=== PATIENT | female | born 1990 | race African-American/Black ===

== ENCOUNTER 2017-08-08 08:14 | Emergency (ER) | payer SELFPAY ==
[2017-08-08 08:37] LABS: APPEARANCE,URINE SLIGHTLY-CLOUDY; BILIRUBIN,URINE NEGATIVE (NEGATIVE); COLOR,URINE YELLOW; GLUCOSE, URINE NEGATIVE (NEGATIVE); KETONES,URINE NEGATIVE (NEGATIVE); LEUKOCYTE ESTERASE,URINE SMALL (NEGATIVE); NITRITE,URINE POSITIVE (NEGATIVE); PROTEIN,URINE NEGATIVE (NEGATIVE); URINE SPECIFIC GRAVITY 1.014; UROBILINOGEN,URINE NEGATIVE mg/dL (<2.0)
[2017-08-08] MEDS ORDERED: ACETAMINOPHEN 325 MG TABLET PO ONE (08:57)
--- NOTE | 2017-08-08 08:57 | ER Document Report ---
ED General - General Chief Complaint: Abdominal Pain Stated Complaint: STOMACH PAIN Time Seen by Provider: 08/08/17 08:43 Notes: Patient is a 27-year-old female who is -1 who presents to the emergency department with a chief complaint of lower pelvic pain for about a week with associated discharge that is white. She admits to spotting as well only when she wipes. States that her last menstrual period was April 2017. She has had a positive test. She denies any nausea, vomiting, abdominal pain, diarrhea constipation. Patient states that she has not been sexually active since May. She has not followed up with [facility] and has not had an ultrasound confirming her . TRAVEL OUTSIDE OF THE [place] IN LAST 30 DAYS: No - Related Data Allergies/Adverse Reactions: No Known Allergies Allergy (Unverified 08/08/17 08:22) Past Medical History - Social History Smoking Status: Current Every Day Smoker Chew tobacco use (# tins/day): No Frequency of alcohol use: None Drug Abuse: Marijuana Family History: Reviewed & Not Pertinent Patient has suicidal ideation: No Patient has homicidal ideation: No Renal/ Medical History: Denies: Hx Peritoneal Dialysis Past Surgical History: Reports: Hx Section - x 1 Review of Systems - Review of Systems Constitutional: No symptoms reported Cardiovascular: No symptoms reported Respiratory: No symptoms reported Gastrointestinal: No symptoms reported Genitourinary: No symptoms reported Female Genitourinary: See HPI -: Yes All other systems reviewed and negative Physical Exam - Vital signs Vitals: Temp Pulse Resp BP Pulse Ox 98.1 F 82 18 112/84 100 08/08/17 08:23 08/08/17 08:23 08/08/17 08:23 08/08/17 08:23 08/08/17 08:23 - Notes Notes: PHYSICAL EXAM GENERAL: Alert, interacts well. LUNGS: Clear to auscultation bilaterally, no wheezes, rales, or rhonchi. No respiratory distress. HEART: Regular rate and rhythm. No murmurs, gallops, or rubs. ABDOMEN: Soft, nondistended, mild pelvic tenderness. No guarding, rebound, or rigidity.. Bowel sounds present in all 4 quadrants. FEMALE : Normal external exam. No evidence of lesions, lacerations, bruising or vesicles. Evidence of white vaginal discharge without odor. No vaginal bleeding. EXTREMITIES: Moves all 4 extremities spontaneously. No edema, radial and dorsalis pedis pulses 2/4 bilaterally. No cyanosis. NEUROLOGICAL: Alert and oriented x4. Normal speech. PSYCH: Normal affect, normal mood. SKIN: Warm, dry, normal turgor. No rashes or lesions noted. Course - Re-evaluation Re-evalutation: 08/08/17 11:49 Patient is 27-year-old female is hemodynamically stable, no acute distress and afebrile. Patient positive test and pelvic pain sent for transvaginal ultrasound. CBC stable without leukocytosis or anemia. No evidence of electrolyte abnormalities and stable chemistry. 08/08/17 13:30 Patient did test positive for trichomonas, Chlamydia/gonorrhea were negative. Transvaginal ultrasound shows placenta overlying cervical loss. Did consult with [facility] s iron worker Dr. New who recommends treatment of trichomonas, pelvic rest and to follow[facility]. Patient is agreeable with plan and stable for discharge home - Vital Signs Vital signs: Temp Pulse Resp BP Pulse Ox 98.6 F 66 14 110/67 98 08/08/17 13:39 08/08/17 13:39 08/08/17 13:39 08/08/17 13:39 08/08/17 13:39 - Laboratory Result Diagrams: 08/08/17 09:49 08/08/17 09:49 Laboratory results interpreted by me: 08/08/17 08/08/17 08/08/17 08:29 09:49 09:49 RDW 14.1 H Beta HCG, Quant 12113.00 H Urine Nitrite POSITIVE H Ur Leukocyte Esterase SMALL H Urine HCG, Qual POSITIVE H - Diagnostic Test Radiology reviewed: Image reviewed, Reports reviewed Discharge - Discharge Clinical Impression: Trichomonas vaginalis (TV) infection Qualifiers: Weeks of gestation: 13 weeks Qualified Code(s): Z3A.13 - 13 weeks gestation of Condition: Good Disposition: HOME, SELF-CARE Instructions: Trichomonas Infection ([facility]) Additional Instructions: : You are . care is best started as early in as possible. If you're unsure about continuing this , you should discuss this with your physician or with visual basic developer at [facility]. You should take only medications approved by your physician. Acetaminophen can safely be taken for minor pains. As a rule, medication for chronic conditions such as asthma or seizures can safely be continued. You should discuss with the physician every medicine you take. Any regular exercise program can be continued. Talk to your physician, however, before engaging in competitive or demanding sports. Alcohol, smoking, and "street drugs" are dangerous to your baby. Cocaine is especially dangerous. Don't use any illicit drugs! BLEEDING DURING EARLY : You have been evaluated for passing blood while . While we take this symptom very seriously, most women with your degree of bleeding will go on to have a perfectly normal baby. At this time, there is no indication that a miscarriage will occur. (A miscarriage occurs when the fetus is abnormal. There is no medicine or treatment to prevent it.) A more serious cause of bleeding is tubal (or ectopic) . An ultrasound usually can show whether the is in the uterus or in the tube. Sometimes in early , no fetus is seen. In this case, careful follow-up, including repeat blood tests and repeat ultrasound, is necessary. Do not douche or have sex for at least a week, or until OK'd by the doctor. Don't use tampons. Call the doctor or return for re-examination if there is an increase in bleeding or cramping, extreme weakness, fainting, new abdominal pain, fever, or passage of tissue. FOLLOW-UP CARE: If you have been referred to a physician for follow-up care, call the physician s office for an appointment as you were instructed or within the next two days. If you experience worsening or a significant change in your symptoms (very heavy bleeding with large clots of blood, passage of tissue, more severe abdominal / pelvic pain or cramping, feeling faint or severe weakness, fever, etc.), notify the physician immediately or return to the Emergency Department at any time for re-evaluation. OBSTETRIC-GYNECOLOGIC (OB-CUSTOMER EQUIPMENT ENGINEER) PHYSICIANS IN [place]: [facility] [address] [place] [address] [phone] [facility] Dept of Watch And Clock Maker And Repairer * Address: [address], [place] [address] * * Website: [email or web address] Referrals: [facility] [Provider Group] - 08/11/17
[2017-08-08 10:05] LABS: ABSOLUTE EOSINOPHILS # (AUTO) 0.1 10^3/uL (0.0-0.6); ABSOLUTE MONOCYTES (AUTO) 0.4 10^3/uL (0.1-1.4); ABSOLUTE NEUT (AUTO) 5.4 10^3/uL (1.7-8.2); BASOPHILS % (AUTO) 0.3 % (0-2); HEMATOCRIT 39.4 % (36.0-47.0); LYMPHOCYTES % (AUTO) 25.4 % (13-45); MEAN CORPUSCULAR HEMOGLOBIN 30.8 pg (27.0-33.4); MEAN CORPUSCULAR VOLUME 93 fl (80-97); MONOCYTES % (AUTO) 5.4 % (3-13); PLATELET COUNT 236 10^3/uL (150-450); RED BLOOD COUNT 4.22 10^6/uL (3.72-5.28); RED CELL DISTRIBUTION WIDTH 14.1 % (11.5-14.0); SEGMENTED NEUTROPHILS % (AUTO) 67.9 % (42-78); TOTAL CELLS COUNTED % (AUTO) 100 %; WHITE BLOOD COUNT 7.9 10^3/uL (4.0-10.5)
[2017-08-08 10:12] LABS: BACTERIA (WET MOUNT) 3+ BACTERIA SEEN; EPITHELIALS (WET MOUNT) 3+ EPITHELIALS SEEN; T.VAGINALIS (WET MOUNT) TRICHOMONAS SEEN; WBCS (WET MOUNT) FEW WBCS SEEN; YEAST (WET MOUNT) NO YEAST SEEN
[2017-08-08 10:23] LABS: ALANINE AMINOTRANSFERASE 15 U/L (9-52); ALBUMIN 4.2 g/dL (3.5-5.0); ALKALINE PHOSPHATASE 59 U/L (38-126); ANION GAP 9 (5-19); ASPARTATE AMINO TRANSFERASE 18 U/L (14-36); BILIRUBIN,DIRECT 0.2 mg/dL (0.0-0.4); BILIRUBIN,TOTAL 0.4 mg/dL (0.2-1.3); BLOOD UREA NITROGEN 8 mg/dL (7-20); CALCIUM 9.5 mg/dL (8.4-10.2); CARBON DIOXIDE 24 mmol/L (22-30); CHLORIDE 104 mmol/L (98-107); GLUCOSE 80 mg/dL (75-110); POTASSIUM 4.4 mmol/L (3.6-5.0); TOTAL PROTEIN 7.3 g/dL (6.3-8.2)
--- NOTE | 2017-08-08 10:34 | RADIOLOGY REPORT (SQ) ---
EXAM DESCRIPTION: U/S OB TRANSVAG W/DOPPLER COMPLETED DATE/TIME: 08/08/2017 10:22 am REASON FOR STUDY: pelvic pain, spotting COMPARISON: None. TECHNIQUE: ENDOVAGINAL static and realtime grayscale images acquired of the pelvis. Additional selec omari spectral and color Doppler images recorded. All images stored on PACs. bHCG: Not available LIMITATIONS: None. FINDINGS: FETUS: Living intrauterine . EGA: 13 weeks 3 days MONIE: 02/10/2018 FHR: 163 beats per minute. SUBCHORIONIC BLEED: No SIZE OF BLEED: Not applicable. UTERUS: No masses. No anomalies. Uterus is 13 x 10 x 8 cm in size CERVICAL LENGTH: 4.4 cm Closed. There is placental tissue partially covering the internal cervical os, with marginal placenta previa. No abruption. Repeat ultrasound imaging sometime later in the 2 nd trimester is recommended for further evaluation of this finding. RIGHT ADNEXA: Normal ovary with normal vascular flow. Right ovary is 3 x 3.1 x 1.6 cm in size No adnexal free fluid. No adnexal masses. LEFT ADNEXA: Normal ovary with normal vascular flow. Left ovary 3.2 x 2.4 x 1.3 cm in size No adnexal free fluid. No adnexal masses. FREE FLUID: None. OTHER: No other significant finding. IMPRESSION: LIVING INTRAUTERINE . EGA 13 weeks 3 days Placenta is developing posteriorly, margin partially covers the internal cervical os from marginal pl acenta previa. No abruption. No fluid in the cervix. Repeat scanning sometime later in the 2nd tri mester is recommended for further evaluation of this finding. Trimester of : First - 0 to 13 weeks. TECHNICAL DOCUMENTATION: JOB ID: [id number] [employer]- All Rights Reserved
[2017-08-08 11:35] LABS: CHLAM PCR NOT DETECTED (NOT DETECT); GON PCR NOT DETECTED (NOT DETECT)
[2017-08-08] MEDS ORDERED: METRONIDAZOLE 500 MG TABLET PO ONE (11:48)
[2017-08-08 13:43] VITALS: BP 110/67
== END 2017-08-08 13:43 | disposition home or self-care (01) ==
LOC: ER 08:14
DX: O98.311 Other infections with a predominantly sexual mode of transmission complicating pregnancy, first trimester (principal); A59.01 Trichomonal vulvovaginitis; R10.30 Lower abdominal pain, unspecified; F17.200 Nicotine dependence, unspecified, uncomplicated; Z3A.13 13 weeks gestation of pregnancy
CPT/HCPCS: 36415; 76817; 80053; 81001; 81025; 84702; 85025; 86900; 86901; 87086; 87088; 87186; 87210; 87491; 87591; 93976; 99284

== ENCOUNTER 2017-09-15 22:35 | Emergency (ER) | payer MEDICAID ==
--- NOTE | 2017-09-16 00:07 | ER Document Report ---
ED GI/ - General Chief Complaint: Vaginal Bleeding Stated Complaint: VAGINAL BLEEDING Time Seen by Provider: 09/15/17 23:58 Notes: Patient is a 27-year-old female that comes emergency department for chief complaint of lower abdominal cramping and vaginal spotting. She states symptoms started over the past day, she denies any heavy bleeding, states she sees the spotting when she wipes. She denies vaginal discharge, she does report some dysuria. She denies fever chills, nausea or vomiting, leg pain. She is feeling baby move, felt movement yesterday although not today. She takes vitamins, she denies any medications otherwise, she has had a C- section, denies other medical history. TRAVEL OUTSIDE OF THE [place] IN LAST 30 DAYS: No - Related Data Allergies/Adverse Reactions: No Known Allergies Allergy (Unverified 08/08/17 08:22) Past Medical History - General Information source: Patient - Social History Smoking Status: Never Smoker Frequency of alcohol use: None Drug Abuse: None Lives with: Family Family History: Reviewed & Not Pertinent - Medical History Medical History: Negative Renal/ Medical History: Denies: Hx Peritoneal Dialysis Past Surgical History: Reports: Hx Section - x 1 - Immunizations Immunizations up to date: Yes Hx Diphtheria, Pertussis, Tetanus Vaccination: Yes Review of Systems - Review of Systems Constitutional: No symptoms reported EENT: No symptoms reported Cardiovascular: No symptoms reported Respiratory: No symptoms reported Gastrointestinal: See HPI Genitourinary: See HPI Female Genitourinary: See HPI Musculoskeletal: No symptoms reported Skin: No symptoms reported Hematologic/Lymphatic: No symptoms reported Neurological/Psychological: No symptoms reported Physical Exam - Vital signs Vitals: Temp Pulse Resp BP Pulse Ox 98.9 F 85 16 100/57 L 100 09/15/17 22:44 09/15/17 22:44 09/15/17 22:44 09/15/17 22:44 09/15/17 22:44 - General General appearance: Appears well In distress: None - HEENT Head: Normocephalic, Atraumatic Eyes: Normal Conjunctiva: Normal Extraocular movements intact: Yes Eyelashes: Normal Pupils: PERRL Nasal: Normal Mouth/Lips: Normal Mucous membranes: Normal Pharynx: Normal Neck: Normal - Respiratory Respiratory status: No respiratory distress Breath sounds: Normal. No: Decreased air movement, Wheezing - Cardiovascular Rhythm: Regular. No: Tachycardia Heart sounds: Normal auscultation, S1 appreciated, S2 appreciated - Abdominal Inspection: Gravid female Tenderness: Tender - There is mild generalized lower abdominal/pelvic tenderness , nonspecific, nonfocal, no guarding, no rigidity - Back Back: Normal, Nontender. No: Tender - Extremities General upper extremity: Normal inspection, Nontender, Normal ROM, Normal strength General lower extremity: Normal inspection, Nontender, Normal ROM, Normal strength. No: Edema - Neurological Neuro grossly intact: Yes Cognition: Normal Orientation: AAOx4 Cayetano Coma Scale Eye Opening: Spontaneous Cayetano Coma Scale Verbal: Oriented Osteen Coma Scale Motor: Obeys Commands Osteen Coma Scale Total: 15 Speech: Normal Cranial nerves: Normal Cerebellar coordination: Normal Motor strength normal: LUE, RUE, LLE, RLE Additional motor exam normals: Equal complaint inspector Sensory: Normal - Psychological Associated symptoms: Normal affect, Normal mood - Skin Skin Temperature: Warm Skin Moisture: Dry Skin Color: Normal Course - Re-evaluation Re-evalutation: CBC shows minimal leukocytosis with no shift, no anemia. Chemistry shows mild hyponatremia but is otherwise unremarkable. Urinalysis shows a few white blood cells, some bacteria, no leukocyte esterase, no nitrates. Patient however is reporting dysuria, will be treated. Ultrasound shows no acute abnormality, living IUP. Discussed with patient, explained that at this time I do not obviously know the source for discomfort, offered to check if she was definitely bleeding, additional evaluation declined, offered to call PUMP AND STILL OPERATOR for recommendations, patient states that she is ready to leave and cannot wait any longer, request discharge. Patient discharged with recommendations, return precautions. Patient states understanding and agreement. - Vital Signs Vital signs: Temp Pulse Resp BP Pulse Ox 97.9 F 86 20 112/85 100 09/16/17 02:44 09/16/17 02:44 09/16/17 02:44 09/16/17 02:44 09/16/17 02:44 - Laboratory Result Diagrams: 09/16/17 00:10 09/16/17 00:10 Laboratory results interpreted by me: 09/16/17 09/16/17 09/16/17 00:10 00:10 00:10 WBC 10.7 H RDW 14.1 H Sodium 136.0 L Carbon Dioxide 21 L Total Protein 6.2 L Urine Blood MODERATE H Discharge - Discharge Clinical Impression: Cramping affecting , antepartum Condition: Stable Disposition: HOME, SELF-CARE Additional Instructions: Because of your painful urination and large amount of bacteria in his urine we are covering him with Keflex antibiotic. Take as prescribed to completion. Your ultrasound shows no abnormalities. Hydrate well, avoid sexual intercourse or any significant physical activity until cleared by PUMP AND STILL OPERATOR to do so. Call tomorrow to set up close follow-up with PUMP AND STILL OPERATOR for additional evaluation and management. Return immediately if you worsen including severe pain, bleeding, fever of 100.4 greater, or any other concerning symptoms. Prescriptions: Cephalexin Monohydrate [Keflex 500 mg Capsule] 500 mg PO BID #10 capsule Referrals: GERARDO MAY MD [Primary Care Provider] - Follow up tomorrow
[2017-09-16 00:25] LABS: ABSOLUTE EOSINOPHILS # (AUTO) 0.2 10^3/uL (0.0-0.6); ABSOLUTE LYMPHOCYTES (AUTO) 2.8 10^3/uL (0.5-4.7); ABSOLUTE MONOCYTES (AUTO) 0.7 10^3/uL (0.1-1.4); ABSOLUTE NEUT (AUTO) 6.9 10^3/uL (1.7-8.2); BASOPHILS % (AUTO) 0.3 % (0-2); EOSINOPHILS % (AUTO) 2.3 % (0-6); HEMATOCRIT 37.4 % (36.0-47.0); HEMOGLOBIN 12.5 g/dL (12.0-15.5); LYMPHOCYTES % (AUTO) 25.9 % (13-45); MEAN CORPUSCULAR HEMOGLOBIN 31.2 pg (27.0-33.4); MEAN CORPUSCULAR HGB CONC 33.3 g/dL (32.0-36.0); MEAN CORPUSCULAR VOLUME 94 fl (80-97); MONOCYTES % (AUTO) 6.8 % (3-13); PLATELET COUNT 197 10^3/uL (150-450); RED CELL DISTRIBUTION WIDTH 14.1 % (11.5-14.0); SEGMENTED NEUTROPHILS % (AUTO) 64.7 % (42-78); TOTAL CELLS COUNTED % (AUTO) 100 %; WHITE BLOOD COUNT 10.7 10^3/uL (4.0-10.5)
[2017-09-16 00:35] LABS: ALANINE AMINOTRANSFERASE 10 U/L (9-52); ALBUMIN 3.7 g/dL (3.5-5.0); ALKALINE PHOSPHATASE 69 U/L (38-126); ANION GAP 9 (5-19); ASPARTATE AMINO TRANSFERASE 18 U/L (14-36); BILIRUBIN,DIRECT 0.1 mg/dL (0.0-0.4); BILIRUBIN,TOTAL 0.3 mg/dL (0.2-1.3); BLOOD UREA NITROGEN 8 mg/dL (7-20); CALCIUM 8.7 mg/dL (8.4-10.2); CARBON DIOXIDE 21 mmol/L (22-30); CHLORIDE 106 mmol/L (98-107); GLUCOSE 80 mg/dL (75-110); POTASSIUM 4.2 mmol/L (3.6-5.0); TOTAL PROTEIN 6.2 g/dL (6.3-8.2)
[2017-09-16 00:59] LABS: APPEARANCE,URINE CLEAR; BILIRUBIN,URINE NEGATIVE (NEGATIVE); COLOR,URINE YELLOW; GLUCOSE, URINE NEGATIVE (NEGATIVE); KETONES,URINE NEGATIVE (NEGATIVE); LEUKOCYTE ESTERASE,URINE NEGATIVE (NEGATIVE); NITRITE,URINE NEGATIVE (NEGATIVE); PROTEIN,URINE NEGATIVE (NEGATIVE); UROBILINOGEN,URINE NEGATIVE mg/dL (<2.0)
--- NOTE | 2017-09-16 02:10 | RADIOLOGY REPORT (SQ) ---
EXAM DESCRIPTION: U/S OB 14+ TA/1 GEST W/DOPPLER CLINICAL HISTORY: 27 years, Female, abd cramping, vaginal bleeding, 2nd trimester COMPARISON: 08/08/17 TECHNIQUE: Transvaginal LIMITATIONS: None. FINDINGS: Living intrauterine measures 19w0d based on sonographic biometrics with MONIE 02/10/18. Cardiac activity is 143 bpm. Posterior placenta with no evidence of complication. Prominence of the anterior uterine wall consistent with mild transient contraction. Variable position. Largest vertical pocket is 7.1 cm. Ovaries not visualized. Limited visualization of the spine likely due to position. Anatomic survey appears otherwise unremarkable including visualization of the four chambered heart view, three-vessel cord, cord insertion, kidneys, bladder, stomach, intracranial structures, and upper-lower extremities. IMPRESSION: 1. Living intrauterine fetus at 19w0d, without evidence of complication. Limited visualization of the spine due to position. 2. Prominence of the anterior lower uterine wall probably due to a transient uterine contraction as compared with prior exam, 08/08/2017; differential diagnosis includes intramural fibroid.
[2017-09-16] MEDS ORDERED: CEPHALEXIN 500 MG CAPSULE PO ONE (02:18)
[2017-09-16 02:47] VITALS: BP 112/85
== END 2017-09-16 02:47 | disposition home or self-care (01) ==
LOC: ER 22:35
DX: O26.90 Pregnancy related conditions, unspecified, unspecified trimester (principal); N93.8 Other specified abnormal uterine and vaginal bleeding; R10.30 Lower abdominal pain, unspecified
CPT/HCPCS: 36415; 76805; 80053; 81001; 85025; 86900; 86901; 87086; 87088; 87186; 93976; 99284

== ENCOUNTER 2017-11-04 09:49 | Outpatient (CLI) | payer MEDICAID ==
[2017-11-04 10:35] LABS: BACTERIA (WET MOUNT) 4+ BACTERIA SEEN; EPITHELIALS (WET MOUNT) 3+ EPITHELIALS SEEN; RBCS (WET MOUNT) 1+ RBCS SEEN; T.VAGINALIS (WET MOUNT) NO TRICHOMONAS SEEN; WBCS (WET MOUNT) 3+ WBCS SEEN; YEAST (WET MOUNT) NO YEAST SEEN
[2017-11-04 10:42] LABS: APPEARANCE,URINE SLIGHTLY-CLOUDY; BILIRUBIN,URINE NEGATIVE (NEGATIVE); COLOR,URINE YELLOW; GLUCOSE, URINE NEGATIVE (NEGATIVE); KETONES,URINE NEGATIVE (NEGATIVE); LEUKOCYTE ESTERASE,URINE LARGE (NEGATIVE); NITRITE,URINE NEGATIVE (NEGATIVE); PROTEIN,URINE 30 mg/dL (NEGATIVE); URINE SPECIFIC GRAVITY 1.023
[2017-11-04 11:08] LABS: URINE AMPHETAMINES SCREEN NEGATIVE; URINE BARBITURATES SCREEN NEGATIVE; URINE BENZODIAZEPINES SCREEN NEGATIVE; URINE COCAINE SCREEN NEGATIVE; URINE METHADONE SCREEN NEGATIVE; URINE PHENCYCLIDINE SCREEN NEGATIVE
[2017-11-04 11:14] LABS: URINE MARIJUANA (THC) SCREEN UNCONFIRMED POSITIVE
[2017-11-04 13:56] LABS: CHLAM PCR NOT DETECTED (NOT DETECT); GON PCR NOT DETECTED (NOT DETECT)
== END 2017-11-04 11:19 | disposition home or self-care (01) ==
LOC: LC 09:49
PROVIDERS: ATTEND Obstetrics & Gynecology Gynecology
PROC: 4A1HXCZ Monitoring of Products of Conception, Cardiac Rate, External Approach (ICD-10-PCS; principal; 2017-11-04)
DX: O47.02 False labor before 37 completed weeks of gestation, second trimester (principal); O99.282 Endocrine, nutritional and metabolic diseases complicating pregnancy, second trimester; E86.0 Dehydration; O26.892 Other specified pregnancy related conditions, second trimester; L29.9 Pruritus, unspecified; Z3A.26 26 weeks gestation of pregnancy
CPT/HCPCS: 59899; 87210; 81001; 80307; 87491; 87591; G0480 ×2

== ENCOUNTER 2017-11-24 22:01 | Outpatient (CLI) | payer MEDICAID ==
[2017-11-24 22:26] LABS: AMORPHOUS SEDIMENT,URINE TRACE /HPF; APPEARANCE,URINE CLOUDY; BILIRUBIN,URINE NEGATIVE (NEGATIVE); COLOR,URINE YELLOW; GLUCOSE, URINE NEGATIVE (NEGATIVE); KETONES,URINE NEGATIVE (NEGATIVE); LEUKOCYTE ESTERASE,URINE LARGE (NEGATIVE); NITRITE,URINE NEGATIVE (NEGATIVE); PROTEIN,URINE 30 mg/dL (NEGATIVE); URINE SPECIFIC GRAVITY 1.019
[2017-11-24] MEDS ORDERED: MORPHINE SULFATE 10 MG/ML INJ ONE (22:26)
[2017-11-24] MEDS ORDERED: MORPHINE SULFATE 10 MG/ML INJ IV ONE (22:26)
[2017-11-24] MEDS ORDERED: RINGERS SOLUTION,LACTATED 1,000 ML IV PRN (22:26)
[2017-11-24] MEDS ORDERED: RINGERS SOLUTION,LACTATED 1,000 ML IV ONE (22:26)
[2017-11-24 22:36] LABS: URINE AMPHETAMINES SCREEN NEGATIVE; URINE BARBITURATES SCREEN NEGATIVE; URINE BENZODIAZEPINES SCREEN NEGATIVE; URINE COCAINE SCREEN NEGATIVE; URINE METHADONE SCREEN NEGATIVE; URINE PHENCYCLIDINE SCREEN NEGATIVE
[2017-11-24 22:39] LABS: URINE MARIJUANA (THC) SCREEN UNCONFIRMED POSITIVE
--- NOTE | 2017-11-25 04:56 | RADIOLOGY REPORT (SQ) ---
EXAM DESCRIPTION: U/S OB LIMITED COMPLETED DATE/TIME: 11/24/2017 11:59 pm REASON FOR STUDY: Cervical length, eval for perterm labor COMPARISON: None. TECHNIQUE: Limited transvaginal and transabdominal grayscale ultrasound for evaluation of specific r equested obstetrical parameters. LIMITATIONS: None. FINDINGS: CERVICAL LENGTH: 3.6 cm Closed. FHR: 153 beats per minute. PRESENTATION: Breech. OTHER: Lower uterine contraction IMPRESSION: LIMITED OBSTETRICAL ULTRASOUND WITH MEASURED PARAMETERS DELINEATED ABOVE. Trimester of : Third trimester - 28 weeks to delivery. TECHNICAL DOCUMENTATION: JOB ID: [id number] [employer]- All Rights Reserved Reading location - IP/workstation name: [email or web address]
== END 2017-11-25 00:33 | disposition short-term general hospital (02) ==
LOC: LC 22:01
PROVIDERS: ATTEND Obstetrics & Gynecology
DX: O60.03 Preterm labor without delivery, third trimester (principal)
CPT/HCPCS: 81001; 80307; 76815; J2270

== ENCOUNTER 2017-11-25 00:43 | Emergency (ER) | payer MEDICAID ==
[2017-11-25] MEDS ORDERED: ACETAMINOPHEN 325 MG TABLET PO ONE (02:50)
--- NOTE | 2017-11-25 02:52 | ER Document Report ---
ED General - General Chief Complaint: Upper Abdominal Pain Stated Complaint: ABDOMINAL PAIN Time Seen by Provider: 11/25/17 01:41 Mode of Arrival: Ambulatory Information source: Patient, [facility] Records Notes: 27-year-old female who is 7 months diagnosed with a urinary tract infection started on Macrobid presents with complaints of suprapubic pain and epigastric pain. Patient was seen at labor and delivery cleared from OB standpoint sent in for further evaluation TRAVEL OUTSIDE OF THE [place] IN LAST 30 DAYS: No - HPI Onset: Just prior to arrival Onset/Duration: Sudden Quality of pain: Achy Severity: Mild Pain Level: 1 Associated symptoms: Nausea, Other - Abdominal pain Exacerbated by: Denies Relieved by: Denies Similar symptoms previously: No Recently seen / treated by doctor: Yes - Related Data Allergies/Adverse Reactions: No Known Allergies Allergy (Verified 11/25/17 02:00) Past Medical History - Social History Smoking Status: Never Smoker Cigarette use (# per day): No Chew tobacco use (# tins/day): No Smoking Education Provided: No Family History: Reviewed & Not Pertinent Patient has suicidal ideation: No Patient has homicidal ideation: No Renal/ Medical History: Denies: Hx Peritoneal Dialysis Past Surgical History: Reports: Hx Section - x 1 - Immunizations Immunizations up to date: Yes Hx Diphtheria, Pertussis, Tetanus Vaccination: Yes Review of Systems - Review of Systems Notes: REVIEW OF SYSTEMS: CONSTITUTIONAL : Denies fever, chills, or sweats. Denies recent illness. EENT: Denies eye, ear, throat, or mouth pain or symptoms. Denies nasal or sinus congestion or discharge. Denies throat, tongue, or mouth swelling or difficulty swallowing. CARDIOVASCULAR: Denies chest pain. Denies palpitations or racing or irregular heart beat. Denies ankle edema. RESPIRATORY: Denies cough, cold, or chest congestion. Denies shortness of breath, difficulty breathing, or wheezing. GASTROINTESTINAL: Admits to epigastric right upper quadrant right flank pain GENITOURINARY: Admits to difficulty urinating FEMALE GENITOURINARY: Denies vaginal bleeding, heavy or abnormal periods, irregular periods. Denies vaginal discharge or odor. MUSCULOSKELETAL: Denies back or neck pain or stiffness. Denies joint pain or swelling. SKIN: Denies rash, lesions or sores. HEMATOLOGIC : Denies easy bruising or bleeding. LYMPHATIC: Denies swollen, enlarged glands. NEUROLOGICAL: Denies confusion or altered mental status. Denies passing out or loss of consciousness. Denies dizziness or lightheadedness. Denies headache. Denies weakness or paralysis or loss of use of either side. Denies problems with gait or speech. Denies sensory loss, numbness, or tingling. Denies seizures. PSYCHIATRIC: Denies anxiety or stress. Denies depression, suicidal ideation, or homicidal ideation. ALL OTHER SYSTEMS REVIEWED AND NEGATIVE. PHYSICAL EXAMINATION: GENERAL: Well-appearing, well-nourished and in no acute distress. HEAD: Atraumatic, normocephalic. EYES: Pupils equal round and reactive to light, extraocular movements intact, conjunctiva are normal. ENT: Nares patent, oropharynx clear without exudates. Moist mucous membranes. NECK: Normal range of motion, supple without lymphadenopathy LUNGS: Breath sounds clear to auscultation bilaterally and equal. No wheezes rales or rhonchi. HEART: Regular rate and rhythm without murmurs ABDOMEN: Gravid abdomen tender in the suprapubic epigastric regions Female : deferred Musculoskeletal: Normal range of motion, no pitting or edema. No cyanosis. NEUROLOGICAL: Cranial nerves grossly intact. Normal speech, normal gait. Normal sensory, motor exams PSYCH: Normal mood, normal affect. SKIN: Warm, Dry, normal turgor, no rashes or lesions noted. Dictation was performed using [employer] voice recognition software Physical Exam - Vital signs Vitals: Temp Pulse Resp BP Pulse Ox 99 F 81 18 115/75 99 11/25/17 01:00 11/25/17 01:00 11/25/17 01:00 11/25/17 01:00 11/25/17 01:00 Course - Re-evaluation Re-evalutation: 11/25/17 02:52 Patient will be given Tylenol at her request, urinalysis concerning for UTI, 11/25/17 04:[address] Lala, she does not believe pt needs ot be admitted, will give rocephn and follow up in ffice 11/25/17 05:18 Patient's very happy with this plan will follow-up in the office After performing a Medical Screening Examination, I estimate there is LOW risk for ACUTE APPENDICITIS, BOWEL OBSTRUCTION, ACUTE CHOLECYSTITIS, PERFORATED DIVERTICULITIS, INCARCERATED HERNIA, PANCREATITIS, PELVIC INFLAMMATORY DISEASE, PERFORATED ULCER, ECTOPIC , or TUBO-OVARIAN ABSCESS, thus I consider the discharge disposition reasonable. Also, there is no evidence or peritonitis , sepsis, or toxicity. I have reevaluated this patient multiple times and no significant life threatening changes are noted. The patient and I have discussed the diagnosis and risks, and we agree with discharging home with close follow-up with the understanding that symptoms and presentations can change. We also discussed returning to the Emergency Department immediately if new or worsening symptoms occur. We have discussed the symptoms which are most concerning (e.g., bloody stool, fever, changing or worsening pain, vomiting) that necessitate immediate return. - Vital Signs Vital signs: Temp Pulse Resp BP Pulse Ox 99.2 F 93 18 101/65 99 11/25/17 05:00 11/25/17 05:00 11/25/17 05:00 11/25/17 05:00 11/25/17 05:00 - Laboratory Result Diagrams: 11/25/17 02:45 11/25/17 02:45 Laboratory results interpreted by me: 11/25/17 11/25/17 02:45 02:45 WBC 12.5 H RBC 3.36 L Hgb 10.1 L Hct 30.4 L RDW 14.1 H Seg Neutrophils % 81.8 H Lymphocytes % 10.7 L Absolute Neutrophils 10.3 H BUN 5 L Total Protein 5.5 L Albumin 2.9 L - Diagnostic Test Radiology reviewed: Image reviewed - Ultrasound per AUDIO PRODUCTION MANAGER notes no cervical loss opening, Reports reviewed Discharge - Discharge Clinical Impression: Abdominal pain affecting UTI in Qualifiers: Trimester: third trimester Qualified Code(s): O23.43 - Unspecified infection of urinary tract in , third trimester Condition: Stable Disposition: HOME, SELF-CARE Instructions: Abdominal Pain ([facility]), Urinary Tract Infection ([facility]) Additional Instructions: Return immediately if you have any fevers or any worsening complaints Referrals: GERARDO MAY MD [Primary Care Provider] - 11/25/17
[2017-11-25 03:03] LABS: ABSOLUTE LYMPHOCYTES (AUTO) 1.3 10^3/uL (0.5-4.7); ABSOLUTE MONOCYTES (AUTO) 0.9 10^3/uL (0.1-1.4); ABSOLUTE NEUT (AUTO) 10.3 10^3/uL (1.7-8.2); BASOPHILS % (AUTO) 0.3 % (0-2); EOSINOPHILS % (AUTO) 0.1 % (0-6); HEMATOCRIT 30.4 % (36.0-47.0); HEMOGLOBIN 10.1 g/dL (12.0-15.5); LYMPHOCYTES % (AUTO) 10.7 % (13-45); MEAN CORPUSCULAR HEMOGLOBIN 30.2 pg (27.0-33.4); MEAN CORPUSCULAR HGB CONC 33.4 g/dL (32.0-36.0); MEAN CORPUSCULAR VOLUME 90 fl (80-97); MONOCYTES % (AUTO) 7.1 % (3-13); PLATELET COUNT 178 10^3/uL (150-450); RED BLOOD COUNT 3.36 10^6/uL (3.72-5.28); RED CELL DISTRIBUTION WIDTH 14.1 % (11.5-14.0); SEGMENTED NEUTROPHILS % (AUTO) 81.8 % (42-78); TOTAL CELLS COUNTED % (AUTO) 100 %; WHITE BLOOD COUNT 12.5 10^3/uL (4.0-10.5)
[2017-11-25 03:12] LABS: ALANINE AMINOTRANSFERASE 22 U/L (9-52); ALBUMIN 2.9 g/dL (3.5-5.0); ALKALINE PHOSPHATASE 83 U/L (38-126); ANION GAP 8 (5-19); ASPARTATE AMINO TRANSFERASE 15 U/L (14-36); BILIRUBIN,DIRECT 0.2 mg/dL (0.0-0.4); BILIRUBIN,TOTAL 0.5 mg/dL (0.2-1.3); BLOOD UREA NITROGEN 5 mg/dL (7-20); CALCIUM 8.6 mg/dL (8.4-10.2); CARBON DIOXIDE 24 mmol/L (22-30); CHLORIDE 107 mmol/L (98-107); GLUCOSE 94 mg/dL (75-110); LIPASE 29.8 U/L (23-300); POTASSIUM 3.9 mmol/L (3.6-5.0); SODIUM 138.7 mmol/L (137-145); TOTAL PROTEIN 5.5 g/dL (6.3-8.2)
[2017-11-25] MEDS ORDERED: CEFTRIAXONE 1 GM/D5W RTU 1 GM/50 ML RTUPB IV ONE (04:27)
[2017-11-25] MEDS ORDERED: CEFTRIAXONE INJ 1000 MG VIAL ONE (04:47)
[2017-11-25 05:02] VITALS: BP 101/65
--- NOTE | 2017-11-25 09:14 | CONSULTATION REPORT E ---
Consultation Report NAME: REGGIE ADAM : 1990 AGE: 27Y DATE: 11/25/2017 TO: ADRIEN REDD M.D. FROM: Hector SANCHEZ, Requesting Physician Patient seen at the request of Dr. Mathis. CHIEF COMPLAINT: Abdominal pain. SUMMARY OF CONSULTATION: The patient is a 27-year-old -Luxembourger female with a 24-hour history of abdominal pain, nonlocalized. She is 7 months . She presented to the emergency department where she was sent to [facility] and examined by Dr. Lala. The patient underwent transvaginal ultrasonography without any pathologic findings. The patient was sent back down to the emergency department where she was evaluated by Dr. Mathis. Exam was nonlocalized. Surgery was consulted for second opinion. PAST MEDICAL AND SURGICAL HISTORY: Significant only for previous . ALLERGIES: None known. MEDICATIONS: None. SOCIAL HISTORY: The patient does not smoke. FAMILY HISTORY: Noncontributory. REVIEW OF SYSTEMS: CONSTITUTIONAL: The patient denies. CARDIOVASCULAR: The patient denies. MUSCULOSKELETAL: The patient denies. NEUROLOGIC: The patient denies. PHYSICAL EXAMINATION: GENERAL: Patient examined in the emergency department. She is in moderate distress, writhing down on the bed. HEENT: No evidence of icterus. LUNGS: Diminished in the bases bilaterally. HEART: No murmur, rub, or gallop. ABDOMEN: Consistent with intrauterine with fundus far above the umbilicus. The abdomen is not rigid. There are no peritoneal signs. She is tender, nonlocalized, however. EXTREMITIES: Lower extremities with mild edema. Remainder of the examination is unremarkable. LABORATORY PROFILE: White blood cell count of 12,500, hemoglobin 10.1. Remainder of labs unremarkable. Normal interpretation of obstetrics, ultrasound not documented. ASSESSMENT: Intrauterine with nonlocalized abdominal pain. No clinical suspicion for surgical problem. RECOMMENDATIONS: 1. Supportive therapy. 2. Await interpretation of obstetric ultrasound. 3. Reconsult Surgery as needed. DICTATING PHYSICIAN: ADRIEN REDD M.D. [id number] PHY#: [id number] ID: [id number] JOB#: [id number] ACCT: [id number] cc:ADRIEN REDD M.D. >
== END 2017-11-25 05:30 | disposition home or self-care (01) ==
LOC: ER 00:43
DX: O23.43 Unspecified infection of urinary tract in pregnancy, third trimester (principal); O26.893 Other specified pregnancy related conditions, third trimester; R10.11 Right upper quadrant pain; R10.13 Epigastric pain; Z3A.30 30 weeks gestation of pregnancy
CPT/HCPCS: 99285; 96374; 36415; 87040; 83690; 85025; 80053; J3490; J0696

== ENCOUNTER 2017-11-25 23:58 | Outpatient (CLI) | payer MEDICAID ==
[2017-11-26 01:02] LABS: APPEARANCE,URINE TURBID; BILIRUBIN,URINE NEGATIVE (NEGATIVE); COLOR,URINE AMBER; GLUCOSE, URINE NEGATIVE (NEGATIVE); KETONES,URINE NEGATIVE (NEGATIVE); LEUKOCYTE ESTERASE,URINE LARGE (NEGATIVE); NITRITE,URINE NEGATIVE (NEGATIVE); PROTEIN,URINE 30 mg/dL (NEGATIVE); URINE SPECIFIC GRAVITY 1.017
[2017-11-26] MEDS ORDERED: ACETAMINOPHEN 325 MG TABLET ONE (01:03)
[2017-11-26] MEDS ORDERED: RINGERS SOLUTION,LACTATED 1,000 ML IV PRN (01:12)
[2017-11-26] MEDS ORDERED: RINGERS SOLUTION,LACTATED 300 ML IV ONE (01:12)
[2017-11-26 01:52] LABS: URINE AMPHETAMINES SCREEN NEGATIVE; URINE BARBITURATES SCREEN NEGATIVE; URINE BENZODIAZEPINES SCREEN NEGATIVE; URINE COCAINE SCREEN NEGATIVE; URINE METHADONE SCREEN NEGATIVE; URINE PHENCYCLIDINE SCREEN NEGATIVE
[2017-11-26 01:55] LABS: URINE MARIJUANA (THC) SCREEN UNCONFIRMED POSITIVE
--- NOTE | 2017-11-26 02:49 | RADIOLOGY REPORT (SQ) ---
EXAM DESCRIPTION: Ultrasound RUQ abdomen CLINICAL HISTORY: 27 years Female, pain right upper quad. 29 wks pre term labor Comparison: None. LIMITATIONS: Bowel gas artifact. FINDINGS: Gallbladder sludge, negative sonographic Lou's test, liver, a 0.2-cm diameter common bile duct, no intrahepatic ductal dilation, 12-cm right kidney, obscured pancreas, visualized vasculature/abdominal aorta, and no significant ascites appear otherwise unremarkable. IMPRESSION: No acute findings. Gallbladder sludge. Obscured pancreas.
[2017-11-26] MEDS ORDERED: OXYCODONE-ACETAMINOPHEN 5-325 MG TABLET PO ONE (03:07)
[2017-11-26] MEDS ORDERED: OXYCODONE-ACETAMINOPHEN 5-325 MG TABLET ONE (03:10)
[2017-11-26] MEDS ORDERED: MAG HYDROX/AL HYDROX/SIMETH SUSP 30 ML UDCUP PO ONE (03:18)
[2017-11-26] MEDS ORDERED: MAG HYDROX/AL HYDROX/SIMETH SUSP 30 ML UDCUP ONE (03:19)
--- NOTE | 2017-11-26 03:41 | L&D Progress Notes ---
PROGRESS NOTES Datetime Report Generated by CPN: 11/26/2017 03:41 PROGRESS NOTE Impression Other: Epigastric pain Plan Other: Home with pain medication and BRAT diet Vital Signs : Reviewed; Within Normal Limits Comment: She presents with epigastric pain for a second night. GB sono shows sludge and her pain is consistent with GB colic or possibly reflux. We will have her begin a BRAT diet and low fat. Rx for vicodin (30) written to be taken sparingly. Also Rx for Macrobid bid for a week for her urine. Zantac 150 mg bid to see if it helps with GERD. She will followup in the office at her next visit as planned. MEMBRANES Membranes: Intact FETUS A Decelerations: None FHR Category: Category I : 30.0 SIGNATURE SIGNATURE: [id number] Signature: with User ID: [email or web address]
== END 2017-11-26 03:51 | disposition home or self-care (01) ==
LOC: LC 23:58
PROVIDERS: ATTEND Obstetrics & Gynecology
DX: O60.03 Preterm labor without delivery, third trimester (principal)
CPT/HCPCS: 81001; 80307; 76705; J3490 ×2

== ENCOUNTER 2017-12-03 09:50 | Emergency (ER) | payer MEDICAID ==
[2017-12-03] MEDS ORDERED: ONDANSETRON HCL INJ/PF 4 MG/2 ML SDV IV ONE (10:17)
[2017-12-03] MEDS ORDERED: NORMAL SALINE 1000 ML 1,000 ML IV ONE (10:17)
[2017-12-03] MEDS ORDERED: MECLIZINE HCL 12.5 MG TABLET PO ONE (10:18)
--- NOTE | 2017-12-03 10:22 | ER Document Report ---
ED Medical Screen (RME) - General Chief Complaint: Dizziness Stated Complaint: HEAD SPINNING Time Seen by Provider: 12/03/17 10:16 Mode of Arrival: Ambulatory Information source: Patient Notes: 27-year-old female presents with complaint of dizziness, nausea that occurred upon awakening. Dizziness is described as the room spinning. Patient is currently complaining of epigastric abdominal pain. She has received in receiving care. She denies any lower abdominal pain, vaginal bleeding , dysuria. Patient denies head injury. She received Zofran, meclizine. Reports she has been unable to tolerate p.o. I have greeted and performed a rapid an initial assessment of the patient. A comprehensive evaluation and assessment will be performed by another ED provider. Medical decision making, lab review if performed will be reviewed by the ED provider taking over the patient's care. PHYSICAL EXAMINATION: GENERAL: Well-appearing, well-nourished and in no acute distress. HEAD: Atraumatic, normocephalic. EYES: Pupils equal round extraocular movements intact, conjunctiva are normal. ENT: Nares patent NECK: Normal range of motion LUNGS: No respiratory distress Musculoskeletal: Normal range of motion NEUROLOGICAL: Normal speech, normal gait. PSYCH: Normal mood, normal affect. SKIN: Warm, Dry, normal turgor, no rashes or lesions noted. TRAVEL OUTSIDE OF THE U.S. IN LAST 30 DAYS: No - HPI Onset: This morning Quality of pain: Stabbing Associated Symptoms: Nausea, Vomiting Exacerbated by: Denies Relieved by: Denies Similar symptoms previously: No Recently seen / treated by doctor: Yes - Related Data Smoking: Non-smoker Frequency of alcohol use: None Drug Abuse: None Allergies/Adverse Reactions: No Known Allergies Allergy (Verified 12/03/17 09:51) Past Medical History - Social History Chew tobacco use (# tins/day): No Frequency of alcohol use: None Drug Abuse: None Renal/ Medical History: Denies: Hx Peritoneal Dialysis Past Surgical History: Reports: Hx Section - x 1 - Immunizations Immunizations up to date: Yes Hx Diphtheria, Pertussis, Tetanus Vaccination: Yes Physical Exam - Vital signs Vitals: Temp Pulse Resp BP Pulse Ox 98.0 F 56 L 16 125/68 99 12/03/17 09:57 12/03/17 09:57 12/03/17 09:57 12/03/17 09:57 12/03/17 09:57 Course - Vital Signs Vital signs: Temp Pulse Resp BP Pulse Ox 98.0 F 56 L 16 125/68 99 12/03/17 09:57 12/03/17 09:57 12/03/17 09:57 12/03/17 09:57 12/03/17 09:57
--- NOTE | 2017-12-03 10:37 | ER Document Report ---
ED General - General Chief Complaint: Dizziness Stated Complaint: HEAD SPINNING Time Seen by Provider: 12/03/17 10:16 Mode of Arrival: Ambulatory Notes: This is a 7 month patient complaining of dizziness. States that it began shortly prior to arrival. Hit her all of a sudden. [place] like she was moving. Some nausea. Headache as well. TRAVEL OUTSIDE OF THE [place]. IN LAST 30 DAYS: No - HPI Onset: Just prior to arrival Onset/Duration: Sudden - Related Data Allergies/Adverse Reactions: No Known Allergies Allergy (Verified 12/03/17 09:51) Past Medical History - General Information source: Patient - Social History Smoking Status: Former Smoker Chew tobacco use (# tins/day): No Frequency of alcohol use: None Drug Abuse: None Lives with: Family Family History: Reviewed & Not Pertinent Patient has suicidal ideation: No Patient has homicidal ideation: No Renal/ Medical History: Denies: Hx Peritoneal Dialysis Past Surgical History: Reports: Hx Section - x 1 - Immunizations Immunizations up to date: Yes Hx Diphtheria, Pertussis, Tetanus Vaccination: Yes Review of Systems - Review of Systems Constitutional: No symptoms reported EENT: See HPI, Vertigo. denies: Eye pain, Ear pain Cardiovascular: No symptoms reported, Dizziness. denies: Chest pain, Palpitations, Heart racing Respiratory: No symptoms reported Gastrointestinal: No symptoms reported Genitourinary: No symptoms reported Female Genitourinary: Musculoskeletal: No symptoms reported Skin: No symptoms reported Hematologic/Lymphatic: No symptoms reported Neurological/Psychological: No symptoms reported, Headaches, Other - Vertigo Physical Exam - Vital signs Vitals: Temp Pulse Resp BP Pulse Ox 98.0 F 56 L 16 125/68 99 12/03/17 09:57 12/03/17 09:57 12/03/17 09:57 12/03/17 09:57 12/03/17 09:57 Interpretation: Normal - General General appearance: Appears well, Alert - HEENT Head: Normocephalic, Atraumatic Eyes: Normal Pupils: PERRL - Respiratory Respiratory status: No respiratory distress Chest status: Nontender Breath sounds: Normal Chest palpation: Normal - Cardiovascular Rhythm: Regular Heart sounds: Normal auscultation Murmur: No - Abdominal Inspection: Normal Distension: No distension Bowel sounds: Normal Tenderness: Nontender Organomegaly: No organomegaly - Back Back: Normal, Nontender - Extremities General upper extremity: Normal inspection, Nontender, Normal color, Normal ROM , Normal temperature General lower extremity: Normal inspection, Nontender, Normal color, Normal ROM , Normal temperature, Normal weight bearing. No: Nacho's sign - Neurological Neuro grossly intact: Yes Cognition: Normal Orientation: AAOx4 [place] Coma Scale Eye Opening: Spontaneous Fitzgerald Coma Scale Verbal: Oriented Fitzgerald Coma Scale Motor: Obeys Commands [place] Coma Scale Total: 15 Speech: Normal Motor strength normal: LUE, RUE, LLE, RLE Sensory: Normal - Psychological Associated symptoms: Normal affect, Normal mood - Skin Skin Temperature: Warm Skin Moisture: Dry Skin Color: Normal Course - Re-evaluation Re-evalutation: 12/03/17 12:[address] unremarkable. Labs are normal. Feeling much better at this time. Likely some benign positional vertigo. Advised her to follow-up with her regular doctor soon as possible. Of note, patient is complaining of a little bit of pain in her previous incision site. There does not appear to be a hernia there. It is soft and palpable with no exquisite pain. Bowel sounds are present in all 4 quadrants. I have advised that due to her small body habitus and her gravid abdomen that she will likely experience some diastases rectus. Patient advised to speak with her JAVA XML DEVELOPER with regards to worsening pain in that region. Of note as well patient was asking for something for pain. I have advised her against narcotics at this time 12/03/17 12:53 Laboratory 12/03/17 12/03/17 12/03/17 10:44 10:44 10:44 WBC 9.1 RBC 3.60 L Hgb 10.7 L Hct 32.8 L MCV 91 MCH 29.9 MCHC 32.8 RDW 14.4 H Plt Count 243 Seg Neutrophils % 71.8 Lymphocytes % 20.9 Monocytes % 6.3 Eosinophils % 0.8 Basophils % 0.2 Absolute Neutrophils 6.6 Absolute Lymphocytes 1.9 Absolute Monocytes 0.6 Absolute Eosinophils 0.1 Absolute Basophils 0.0 Sodium 138.8 Potassium 4.5 Chloride 107 Carbon Dioxide 25 Anion Gap 7 BUN 7 Creatinine 0.52 Est GFR ( Amer) > 60 Est GFR (Non-Af Amer) > 60 Glucose 77 Calcium 8.6 Total Bilirubin 0.3 Direct Bilirubin 0.2 Neonat Total Bilirubin Not Reportable Neonat Direct Bilirubin Not Reportable Neonat Indirect Bili Not Reportable AST 17 ALT 23 Alkaline Phosphatase 89 Total Protein 6.3 Albumin 3.4 L Urine Color YELLOW Urine Appearance SLIGHTLY-CLOUDY Urine pH 6.0 Ur Specific [place] 1.016 Urine Protein NEGATIVE Urine Glucose (UA) NEGATIVE Urine Ketones NEGATIVE Urine Blood NEGATIVE Urine Nitrite NEGATIVE Urine Bilirubin NEGATIVE Urine Urobilinogen 2.0 H Ur Leukocyte Esterase TRACE H Urine WBC (Auto) 4 Urine RBC (Auto) 1 Squamous Epi Cells Auto 17 Urine Mucus (Auto) FEW Urine Ascorbic Acid NEGATIVE Head CT 12/03/17 11:01 IMPRESSION: NORMAL BRAIN CT WITHOUT CONTRAST. EVIDENCE OF ACUTE STROKE: NO. - Vital Signs Vital signs: Temp Pulse Resp BP Pulse Ox 98.0 F 56 L 16 125/68 99 12/03/17 09:57 12/03/17 09:57 12/03/17 09:57 12/03/17 09:57 12/03/17 09:57 - Laboratory Result Diagrams: 12/03/17 10:44 12/03/17 10:44 Laboratory results interpreted by me: 12/03/17 12/03/17 12/03/17 10:44 10:44 10:44 RBC 3.60 L Hgb 10.7 L Hct 32.8 L RDW 14.4 H Albumin 3.4 L Urine Urobilinogen 2.0 H Ur Leukocyte Esterase TRACE H Discharge - Discharge Clinical Impression: Vertigo Condition: Good Disposition: HOME, SELF-CARE Instructions: Vertigo ([facility]) Prescriptions: Meclizine HCl 25 mg PO TID PRN 5 Days #20 tablet PRN Reason: Forms: Return to Work
[2017-12-03] MEDS ORDERED: ACETAMINOPHEN 325 MG TABLET PO ONE (11:01)
[2017-12-03 11:15] LABS: ABSOLUTE EOSINOPHILS # (AUTO) 0.1 10^3/uL (0.0-0.6); ABSOLUTE LYMPHOCYTES (AUTO) 1.9 10^3/uL (0.5-4.7); ABSOLUTE MONOCYTES (AUTO) 0.6 10^3/uL (0.1-1.4); ABSOLUTE NEUT (AUTO) 6.6 10^3/uL (1.7-8.2); BASOPHILS % (AUTO) 0.2 % (0-2); EOSINOPHILS % (AUTO) 0.8 % (0-6); HEMATOCRIT 32.8 % (36.0-47.0); HEMOGLOBIN 10.7 g/dL (12.0-15.5); LYMPHOCYTES % (AUTO) 20.9 % (13-45); MEAN CORPUSCULAR HEMOGLOBIN 29.9 pg (27.0-33.4); MEAN CORPUSCULAR HGB CONC 32.8 g/dL (32.0-36.0); MEAN CORPUSCULAR VOLUME 91 fl (80-97); MONOCYTES % (AUTO) 6.3 % (3-13); PLATELET COUNT 243 10^3/uL (150-450); RED CELL DISTRIBUTION WIDTH 14.4 % (11.5-14.0); SEGMENTED NEUTROPHILS % (AUTO) 71.8 % (42-78); TOTAL CELLS COUNTED % (AUTO) 100 %; WHITE BLOOD COUNT 9.1 10^3/uL (4.0-10.5)
[2017-12-03 11:37] LABS: APPEARANCE,URINE SLIGHTLY-CLOUDY; BILIRUBIN,URINE NEGATIVE (NEGATIVE); COLOR,URINE YELLOW; GLUCOSE, URINE NEGATIVE (NEGATIVE); KETONES,URINE NEGATIVE (NEGATIVE); LEUKOCYTE ESTERASE,URINE TRACE (NEGATIVE); NITRITE,URINE NEGATIVE (NEGATIVE); PROTEIN,URINE NEGATIVE (NEGATIVE); URINE SPECIFIC GRAVITY 1.016
[2017-12-03 11:39] LABS: ALANINE AMINOTRANSFERASE 23 U/L (9-52); ALBUMIN 3.4 g/dL (3.5-5.0); ALKALINE PHOSPHATASE 89 U/L (38-126); ANION GAP 7 (5-19); ASPARTATE AMINO TRANSFERASE 17 U/L (14-36); BILIRUBIN,DIRECT 0.2 mg/dL (0.0-0.4); BILIRUBIN,TOTAL 0.3 mg/dL (0.2-1.3); BLOOD UREA NITROGEN 7 mg/dL (7-20); CALCIUM 8.6 mg/dL (8.4-10.2); CARBON DIOXIDE 25 mmol/L (22-30); CHLORIDE 107 mmol/L (98-107); GLUCOSE 77 mg/dL (75-110); POTASSIUM 4.5 mmol/L (3.6-5.0); SODIUM 138.8 mmol/L (137-145); TOTAL PROTEIN 6.3 g/dL (6.3-8.2)
--- NOTE | 2017-12-03 12:24 | RADIOLOGY REPORT (SQ) ---
EXAM DESCRIPTION: CT HEAD WITHOUT COMPLETED DATE/TIME: 12/03/2017 12:13 pm REASON FOR STUDY: headace with dizziness COMPARISON: None. TECHNIQUE: Axial images acquired through the brain without intravenous contrast. Images reviewed wi th bone, brain and subdural windows. Images stored on PACS. All CT scanners at this facility use dose modulation, iterative reconstruction, and/or weight based d osing when appropriate to reduce radiation dose to as low as reasonably achievable (ALARA). [facility]: Dose Right [facility]: CareDose [facility]: Dose Right [facility]: Teradose 4D [facility]: Smart [employer] RADIATION DOSE: CT Rad equipment meets quality standard of care and radiation dose reduction techniq ues were employed. CTDIvol: 53.2 mGy. DLP: 1097 mGy-cm. mGy. LIMITATIONS: None. FINDINGS: VENTRICLES: Normal size and contour. CEREBRUM: No masses. No hemorrhage. No midline shift. No evidence for acute infarction. Normal gra y/white matter differentiation. No areas of low density in the white matter. CEREBELLUM: No masses. No hemorrhage. No alteration of density. No evidence for acute infarction. EXTRAAXIAL SPACES: No fluid collections. No masses. ORBITS AND GLOBE: No intra- or extraconal masses. Normal contour of globe without masses. CALVARIUM: No fracture. PARANASAL SINUSES: No fluid or mucosal thickening. SOFT TISSUES: No mass or hematoma. OTHER: No other significant finding. IMPRESSION: NORMAL BRAIN CT WITHOUT CONTRAST. EVIDENCE OF ACUTE STROKE: NO. COMMENT: Quality ID # [id number]: Final reports with documentation of one or more dose reduction techniques (e.g., Automated exposure control, adjustment of the mA and/or kV according to patient size, use of iterative reconstruction technique) TECHNICAL DOCUMENTATION: JOB ID: [id number] [employer]- All Rights Reserved Reading location - IP/workstation name: [email or web address]
[2017-12-03 12:53] VITALS: BP 109/59
== END 2017-12-03 13:23 | disposition home or self-care (01) ==
LOC: ER 09:50
DX: R42 Dizziness and giddiness (principal); R11.0 Nausea; Z87.891 Personal history of nicotine dependence
CPT/HCPCS: 99284; 96361; 96374; 36415; 85025; 80053; 81001; 70450; J3490 ×2; J2405; J7030

== ENCOUNTER 2017-12-24 10:45 | Outpatient (CLI) | payer MEDICAID ==
[2017-12-24 11:41] LABS: APPEARANCE,URINE CLOUDY; BILIRUBIN,URINE NEGATIVE (NEGATIVE); COLOR,URINE YELLOW; GLUCOSE, URINE NEGATIVE (NEGATIVE); KETONES,URINE NEGATIVE (NEGATIVE); LEUKOCYTE ESTERASE,URINE MODERATE (NEGATIVE); NITRITE,URINE POSITIVE (NEGATIVE); PROTEIN,URINE 30 mg/dL (NEGATIVE); URINE SPECIFIC GRAVITY 1.024
[2017-12-24 11:46] LABS: URINE AMPHETAMINES SCREEN NEGATIVE; URINE BARBITURATES SCREEN NEGATIVE; URINE BENZODIAZEPINES SCREEN NEGATIVE; URINE COCAINE SCREEN NEGATIVE; URINE METHADONE SCREEN NEGATIVE; URINE PHENCYCLIDINE SCREEN NEGATIVE
[2017-12-24 11:50] LABS: URINE MARIJUANA (THC) SCREEN UNCONFIRMED POSITIVE
--- NOTE | 2017-12-24 12:34 | RADIOLOGY REPORT (SQ) ---
EXAM DESCRIPTION: U/S ABDOMEN COMPLETE W/O DOP COMPLETED DATE/TIME: 12/24/2017 12:19 pm REASON FOR STUDY: at 33w with abd pain.appendix,gall bladde COMPARISON: 11/26/2017. TECHNIQUE: Dynamic and static grayscale images acquired of the abdomen and recorded on PACS. Additio nal selected color Doppler and spectral images recorded. LIMITATIONS: Study limited due to acoustical interference from fat or from air in the bowel. FINDINGS: PANCREAS: Poorly seen secondary to acoustical interference from fat or from air in the bow el. No visualized masses. Duct normal caliber as seen. LIVER: No masses. No dilated ducts. LIVER VASCULATURE: Normal directional flow of the main portal vein and hepatic veins. GALLBLADDER: No stones. Normal wall thickness. No pericholecystic fluid. ULTRASOUND-DETECTED REYNA'S SIGN: Negative. INTRAHEPATIC DUCTS AND COMMON DUCT:CBD and intrahepatic ducts normal caliber. No filling defects. INFERIOR VENA CAVA: Normal flow. AORTA: No aneurysm. RIGHT KIDNEY: Normal size. Normal echogenicity. No solid or suspicious masses. No hydronephrosis. No calcifications. LEFT KIDNEY: Normal size. Normal echogenicity. No solid or suspicious masses. No hydronephrosis. No calcifications. SPLEEN:Normal size. No solid masses. PERITONEAL AND PLEURAL SPACES: No ascites or effusions. RIGHT LOWER QUADRANT: Appendix not visualized. No abnormal sonographic findings. OTHER: No other significant finding. IMPRESSION: NO SIGNIFICANT FINDING IN THE VISUALIZED ABDOMEN. TECHNICAL DOCUMENTATION: JOB ID: [id number] [employer]- All Rights Reserved Reading location - IP/workstation name: [email or web address]
[2017-12-24] MEDS ORDERED: HYDROXYZINE PAMOATE 50 MG CAPSULE PO ONE (12:35)
[2017-12-24] MEDS ORDERED: HYDROXYZINE PAMOATE 50 MG CAPSULE ONE (12:45)
[2017-12-24] MEDS ORDERED: CEFTRIAXONE INJ 1000 MG VIAL ONE (12:45)
[2017-12-24] MEDS ORDERED: ACETAMINOPHEN 1,000 MG/100 ML RTUPB IV ONE ×2 (12:45→13:30)
[2017-12-24] MEDS ORDERED: CEFTRIAXONE 1 GM/D5W RTU 1 GM/50 ML RTUPB IV SCH (13:00)
[2017-12-24 13:19] LABS: T.VAGINALIS (WET MOUNT) NO TRICHOMONAS SEEN; WBCS (WET MOUNT) 1+ WBCS SEEN; YEAST (WET MOUNT) NO YEAST SEEN
[2017-12-24 13:20] LABS: BACTERIA (WET MOUNT) 3+ BACTERIA SEEN; EPITHELIALS (WET MOUNT) 3+ EPITHELIALS SEEN; RBCS (WET MOUNT) RARE RBCS SEEN
[2017-12-24] MEDS ORDERED: PHENAZOPYRIDINE HCL 200 MG TABLET PO ONE (13:30)
[2017-12-24] MEDS ORDERED: CEFTRIAXONE SODIUM 1,000 MG in DEXTROSE 5%-WATER 50 ML IV SCH (14:00)
--- NOTE | 2017-12-24 14:46 | Non Stress Test Report ---
Non Stress Test Datetime Report Generated by CPN: 12/24/2017 14:46 DEMOGRAPHIC EGA NST: 34.0 INDICATION Indication for Study: Other Indication for Study (NST) Other: labor check VITAL SIGNS Temperature - NST: 97.6 Pulse - NST: 82 RESP - NST: 16 NBPSYS NST: 120 NBPDIA NST: 60 MONITORING Monitor Explained: Monitor Explained; Test Explained; Patient Verbalized Understanding Time on Monitor: 12/24/2017 11:20 Time off Monitor: 12/24/2017 11:40 NST Duration: 20 NST INTERVENTIONS NST Interventions: PO Hydration; IV Fluids Physician Notified NST: A. Mayes, CNM Physician Notified NST: Mayes BABY A: [id number] BABY A Movement : Present Contraction Frequency : rare FHR Baseline : 135 Accelerations : 15X15 Decelerations : None Variability : Moderate 6-25bpm NST Review: Meets Criteria for Reactive NST NST Review and Verified By : Tony Hassan RN NST Results: Reactive NST REPORT Report Trigger: Send Report
== END 2017-12-24 14:31 | disposition home or self-care (01) ==
LOC: LC 10:45
PROVIDERS: ATTEND Obstetrics & Gynecology
PROC: 4A1HXCZ Monitoring of Products of Conception, Cardiac Rate, External Approach (ICD-10-PCS; principal; 2017-12-24)
DX: O23.43 Unspecified infection of urinary tract in pregnancy, third trimester (principal); O23.593 Infection of other part of genital tract in pregnancy, third trimester; N76.0 Acute vaginitis; B96.89 Other specified bacterial agents as the cause of diseases classified elsewhere; Z3A.34 34 weeks gestation of pregnancy
CPT/HCPCS: 59025; 87086; 87210; 87088; 81001; 87186; 80307; 76700; G0480 ×2; J3490 ×2; J0696; J0131

== ENCOUNTER 2018-01-04 11:46 | Outpatient (CLI) | payer MEDICAID ==
[2018-01-04] MEDS ORDERED: RINGERS SOLUTION,LACTATED 1,000 ML IV PRN (12:43)
[2018-01-04 12:49] LABS: AMORPHOUS SEDIMENT,URINE TRACE /HPF; APPEARANCE,URINE SLIGHTLY-CLOUDY; BILIRUBIN,URINE NEGATIVE (NEGATIVE); COLOR,URINE YELLOW; GLUCOSE, URINE NEGATIVE (NEGATIVE); KETONES,URINE NEGATIVE (NEGATIVE); LEUKOCYTE ESTERASE,URINE TRACE (NEGATIVE); NITRITE,URINE NEGATIVE (NEGATIVE); PROTEIN,URINE NEGATIVE (NEGATIVE); URINE SPECIFIC GRAVITY 1.011; UROBILINOGEN,URINE NEGATIVE mg/dL (<2.0)
[2018-01-04 12:50] LABS: AMNISURE (ROM) NEGATIVE (NEGATIVE)
[2018-01-04 12:54] LABS: BACTERIA (WET MOUNT) 4+ BACTERIA SEEN; EPITHELIALS (WET MOUNT) 4+ EPITHELIALS SEEN; T.VAGINALIS (WET MOUNT) NO TRICHOMONAS SEEN; WBCS (WET MOUNT) FEW WBCS SEEN; YEAST (WET MOUNT) NO YEAST SEEN
[2018-01-04 13:04] LABS: URINE AMPHETAMINES SCREEN NEGATIVE; URINE BARBITURATES SCREEN NEGATIVE; URINE BENZODIAZEPINES SCREEN NEGATIVE; URINE COCAINE SCREEN NEGATIVE; URINE METHADONE SCREEN NEGATIVE; URINE PHENCYCLIDINE SCREEN NEGATIVE
[2018-01-04 13:13] LABS: URINE MARIJUANA (THC) SCREEN UNCONFIRMED POSITIVE
[2018-01-04] MEDS ORDERED: ACETAMINOPHEN 325 MG TABLET PO ONE (13:21)
[2018-01-04] MEDS ORDERED: ACETAMINOPHEN 325 MG TABLET ONE (13:27)
[2018-01-04] MEDS ORDERED: HYDROXYZINE PAMOATE 50 MG CAPSULE PO ONE (13:59)
[2018-01-04 14:10] LABS: CHLAM PCR NOT DETECTED (NOT DETECT); GON PCR NOT DETECTED (NOT DETECT)
[2018-01-04] MEDS ORDERED: HYDROXYZINE PAMOATE 50 MG CAPSULE ONE (14:25)
--- NOTE | 2018-01-04 14:30 | RADIOLOGY REPORT (SQ) ---
EXAM DESCRIPTION: U/S OB LIMITED COMPLETED DATE/TIME: 01/04/2018 1:47 pm REASON FOR STUDY: Eval placenta, CORINE, well being COMPARISON: Limited Ob ultrasound 11/24/2017 TECHNIQUE: Limited transabdominal grayscale ultrasound for evaluation of specific requested obstetri cristi parameters. LIMITATIONS: None. FINDINGS: CERVICAL LENGTH: Not visualized transabdominally. CORINE: 19.8 total cm. Largest pocket 6.8 cm FHR: 165 beats per minute. PRESENTATION: Cephalic. OTHER: Placenta is posterior grade 1. No gross abruption or previa IMPRESSION: LIMITED OBSTETRICAL ULTRASOUND WITH MEASURED PARAMETERS DELINEATED ABOVE. Trimester of : Third trimester - 28 weeks to delivery. TECHNICAL DOCUMENTATION: JOB ID: [id number] [employer]- All Rights Reserved Reading location - IP/workstation name: [email or web address]
--- NOTE | 2018-01-04 14:49 | Non Stress Test Report ---
Non Stress Test Datetime Report Generated by CPN: 01/04/2018 14:49 DEMOGRAPHIC Test Number: 2 EGA NST: 34.3 INDICATION Indication for Study: Ordered by Provider MONITORING Monitor Explained: Monitor Explained; Test Explained; Patient Verbalized Understanding Time on Monitor: 01/04/2018 12:06 Time off Monitor: 01/04/2018 12:39 NST Duration: 33 NST INTERVENTIONS NST Interventions: None BABY A: [id number] BABY A Movement : Present Contraction Frequency : Irritability FHR Baseline : 145 Accelerations : 15X15 Decelerations : None Variability : Moderate 6-25bpm NST Review: Meets Criteria for Reactive NST NST Review and Verified By : Anant Murphy RN NST Results: Reactive NST REPORT Report Trigger: Send Report
== END 2018-01-04 14:39 | disposition home or self-care (01) ==
LOC: LC 11:46
PROVIDERS: ATTEND Obstetrics & Gynecology Gynecology
PROC: 4A1HXCZ Monitoring of Products of Conception, Cardiac Rate, External Approach (ICD-10-PCS; principal; 2018-01-04)
DX: O26.893 Other specified pregnancy related conditions, third trimester (principal); R10.2 Pelvic and perineal pain; Z3A.34 34 weeks gestation of pregnancy
CPT/HCPCS: 59025; 84112; 87210; 81001; 80307; 87491; 87591; 76815; J3490 ×2

== ENCOUNTER 2018-01-09 08:23 | Outpatient (CLI) | payer MEDICAID ==
[2018-01-09 09:16] LABS: APPEARANCE,URINE SLIGHTLY-CLOUDY; BILIRUBIN,URINE NEGATIVE (NEGATIVE); COLOR,URINE YELLOW; GLUCOSE, URINE NEGATIVE (NEGATIVE); KETONES,URINE NEGATIVE (NEGATIVE); LEUKOCYTE ESTERASE,URINE LARGE (NEGATIVE); NITRITE,URINE NEGATIVE (NEGATIVE); PROTEIN,URINE 30 mg/dL (NEGATIVE); URINE SPECIFIC GRAVITY 1.026
[2018-01-09 09:18] LABS: BACTERIA (WET MOUNT) 3+ BACTERIA SEEN; RBCS (WET MOUNT) NO RBCS SEEN; T.VAGINALIS (WET MOUNT) NO TRICHOMONAS SEEN; WBCS (WET MOUNT) 1+ WBCS SEEN; YEAST (WET MOUNT) NO YEAST SEEN
[2018-01-09 09:23] LABS: URINE AMPHETAMINES SCREEN NEGATIVE; URINE BARBITURATES SCREEN NEGATIVE; URINE BENZODIAZEPINES SCREEN NEGATIVE; URINE COCAINE SCREEN NEGATIVE; URINE METHADONE SCREEN NEGATIVE; URINE PHENCYCLIDINE SCREEN NEGATIVE
[2018-01-09 09:39] LABS: URINE MARIJUANA (THC) SCREEN UNCONFIRMED POSITIVE
[2018-01-09] MEDS ORDERED: NALBUPHINE HCL INJ 10 MG/1 ML AMPULE INJ ONE (10:21)
[2018-01-09] MEDS ORDERED: NALBUPHINE HCL INJ 10 MG/1 ML AMPULE ONE (10:22)
[2018-01-09 10:38] LABS: CHLAM PCR NOT DETECTED (NOT DETECT); GON PCR NOT DETECTED (NOT DETECT)
--- NOTE | 2018-01-09 11:57 | RADIOLOGY REPORT (SQ) ---
EXAM DESCRIPTION: U/S ABDOMEN LIMITED W/O DOP COMPLETED DATE/TIME: 01/09/2018 11:16 am REASON FOR STUDY: Upper abdominal pain, vomiting COMPARISON: None. TECHNIQUE: Dynamic and static grayscale images acquired of the abdomen and recorded on PACS. Additio nal selected color Doppler and spectral images recorded. LIMITATIONS: None. FINDINGS: PANCREAS: No masses. Visualized pancreatic duct normal caliber. LIVER: 12.5 cm. Normal echotexture. LIVER VASCULATURE: Normal directional flow of the main portal vein and hepatic veins. GALLBLADDER: No stones. Normal wall thickness. No pericholecystic fluid. ULTRASOUND-DETECTED REYNA'S SIGN: Negative. INTRAHEPATIC DUCTS AND COMMON DUCT: CBD and intrahepatic ducts normal caliber. No filling defects. INFERIOR VENA CAVA: Normal flow. AORTA: No aneurysm. RIGHT KIDNEY: Normal size, 10.7 cm. The lower pole is poorly seen because of bowel gas. PERITONEAL AND RIGHT PLEURAL SPACE: No ascites or effusions. OTHER: None. IMPRESSION: NORMAL RIGHT UPPER QUADRANT ULTRASOUND. TECHNICAL DOCUMENTATION: JOB ID: [id number] [employer]- All Rights Reserved Reading location - IP/workstation name: [email or web address]
[2018-01-09 12:33] LABS: ABSOLUTE EOSINOPHILS # (AUTO) 0.1 10^3/uL (0.0-0.6); ABSOLUTE LYMPHOCYTES (AUTO) 1.8 10^3/uL (0.5-4.7); ABSOLUTE MONOCYTES (AUTO) 0.7 10^3/uL (0.1-1.4); ABSOLUTE NEUT (AUTO) 6.1 10^3/uL (1.7-8.2); BASOPHILS % (AUTO) 0.3 % (0-2); EOSINOPHILS % (AUTO) 0.7 % (0-6); HEMATOCRIT 30.4 % (36.0-47.0); HEMOGLOBIN 10.1 g/dL (12.0-15.5); LYMPHOCYTES % (AUTO) 20.5 % (13-45); MEAN CORPUSCULAR HEMOGLOBIN 29.3 pg (27.0-33.4); MEAN CORPUSCULAR HGB CONC 33.3 g/dL (32.0-36.0); MEAN CORPUSCULAR VOLUME 88 fl (80-97); MONOCYTES % (AUTO) 8.1 % (3-13); PLATELET COUNT 185 10^3/uL (150-450); RED BLOOD COUNT 3.45 10^6/uL (3.72-5.28); SEGMENTED NEUTROPHILS % (AUTO) 70.4 % (42-78); TOTAL CELLS COUNTED % (AUTO) 100 %; WHITE BLOOD COUNT 8.7 10^3/uL (4.0-10.5)
[2018-01-09 12:54] LABS: LIPASE 37.4 U/L (23-300)
--- NOTE | 2018-01-09 13:56 | Non Stress Test Report ---
Non Stress Test Datetime Report Generated by CPN: 01/09/2018 13:56 DEMOGRAPHIC EGA NST: 35.1 INDICATION Indication for Study: Other Indication for Study (NST) Other: LABOR CHECK MONITORING Monitor Explained: Monitor Explained; Test Explained; Patient Verbalized Understanding Monitor Explained: Monitor Explained; Test Explained; Patient Verbalized Understanding Time on Monitor: 01/09/2018 08:45 Time off Monitor: 01/09/2018 10:58 NST Duration: 133 NST INTERVENTIONS NST Interventions: PO Hydration; Reposition Patient Physician Notified NST: Blanca BernardTROY BABY A: [id number] BABY A Movement : Present Contraction Frequency : irregular FHR Baseline : 135 Accelerations : 15X15 Accelerations : 15X15 Decelerations : None Variability : Moderate 6-25bpm Variability : Moderate 6-25bpm NST Review: Meets Criteria for Reactive NST NST Review: Meets Criteria for Reactive NST NST Review and Verified By : Tony Zhou RN NST Results: Reactive NST Results: Reactive NST REPORT Report Trigger: Send Report
== END 2018-01-09 13:38 | disposition home or self-care (01) ==
LOC: LC 08:23
PROVIDERS: ATTEND Obstetrics & Gynecology
PROC: 4A1HXCZ Monitoring of Products of Conception, Cardiac Rate, External Approach (ICD-10-PCS; principal; 2018-01-09)
DX: O26.893 Other specified pregnancy related conditions, third trimester (principal); R10.10 Upper abdominal pain, unspecified; O21.2 Late vomiting of pregnancy; Z3A.35 35 weeks gestation of pregnancy
CPT/HCPCS: 59025; 36415; 87210; 82150; 83690; 85025; 81001; 80307; 87491; 87591; 76705; J2300

== ENCOUNTER 2018-01-11 13:58 | Outpatient (CLI) | payer MEDICAID ==
[2018-01-11] MEDS ORDERED: HYDROXYZINE PAMOATE 50 MG CAPSULE ONE (14:36)
[2018-01-11] MEDS ORDERED: HYDROXYZINE PAMOATE 50 MG CAPSULE PO ONE (14:44)
[2018-01-11 15:01] LABS: AMORPHOUS SEDIMENT,URINE TRACE /HPF; APPEARANCE,URINE CLOUDY; BILIRUBIN,URINE NEGATIVE (NEGATIVE); COLOR,URINE YELLOW; GLUCOSE, URINE NEGATIVE (NEGATIVE); KETONES,URINE NEGATIVE (NEGATIVE); LEUKOCYTE ESTERASE,URINE MODERATE (NEGATIVE); NITRITE,URINE NEGATIVE (NEGATIVE); PROTEIN,URINE >=500 mg/dL (NEGATIVE); URINE AMPHETAMINES SCREEN NEGATIVE; URINE BARBITURATES SCREEN NEGATIVE; URINE BENZODIAZEPINES SCREEN NEGATIVE; URINE COCAINE SCREEN NEGATIVE; URINE MARIJUANA (THC) SCREEN UNCONFIRMED POSITIVE; URINE METHADONE SCREEN NEGATIVE; URINE PHENCYCLIDINE SCREEN NEGATIVE; URINE SPECIFIC GRAVITY 1.017; UROBILINOGEN,URINE NEGATIVE mg/dL (<2.0)
[2018-01-11] MEDS ORDERED: HYDROCORTISONE 1% OINTMENT 28.35 GM TP SCH (18:00)
== END 2018-01-11 15:43 | disposition home or self-care (01) ==
LOC: LC 13:58
PROVIDERS: ATTEND Obstetrics & Gynecology
PROC: 4A1HXCZ Monitoring of Products of Conception, Cardiac Rate, External Approach (ICD-10-PCS; principal; 2018-01-11)
DX: Z34.93 Encounter for supervision of normal pregnancy, unspecified, third trimester (principal)
CPT/HCPCS: 59025; 81001; 80307; J3490 ×2

== ENCOUNTER 2018-01-29 12:02 | Emergency (ER) | payer MEDICAID ==
[2018-01-29] MEDS ORDERED: FENTANYL CITRATE INJ/PF 100 MCG/2 ML AMPUL IV ONE (13:03)
[2018-01-29] MEDS ORDERED: ONDANSETRON 4 MG TAB.RAPDIS PO ONE (13:03)
--- NOTE | 2018-01-29 13:05 | ER Document Report ---
ED Medical Screen (RME) - General Chief Complaint: Post Surgical Pain Stated Complaint: POST OP PAIN Time Seen by Provider: 01/29/18 13:01 Mode of Arrival: Ambulatory Information source: Patient TRAVEL OUTSIDE OF THE [place]. IN LAST 30 DAYS: No - HPI Notes: 01/29/18 13:04 I have greeted and performed a rapid initial assessment of this patient. A comprehensive ED assessment and evaluation of the patient, analysis of test results and completion of the medical decision making process will be conducted by additional ED providers. 27-year-old female who presents emergency department with complaints of abdominal pain. Patient states that she had a done a week ago. Patient has increased swelling and pain to the area. 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 Patient denies any fever, chills, dysuria. PHYSICAL EXAMINATION: GENERAL: Well-appearing, well-nourished and in no acute distress. HEAD: Atraumatic, normocephalic. EYES: Pupils equal round extraocular movements intact, conjunctiva are normal. ENT: Nares patent NECK: Normal range of motion LUNGS: No respiratory distress ABD: site swollen and tender to touch Musculoskeletal: Normal range of motion NEUROLOGICAL: Normal speech, normal gait. PSYCH: Normal mood, normal affect. SKIN: Warm, Dry, normal turgor, no rashes or lesions noted. - Related Data Allergies/Adverse Reactions: No Known Allergies Allergy (Verified 01/29/18 12:45) Past Medical History - Social History Chew tobacco use (# tins/day): No Frequency of alcohol use: None Drug Abuse: None Renal/ Medical History: Denies: Hx Peritoneal Dialysis Past Surgical History: Reports: Hx Section - x 1 - Immunizations Immunizations up to date: Yes Hx Diphtheria, Pertussis, Tetanus Vaccination: Yes Physical Exam - Vital signs Vitals: Temp Pulse BP Pulse Ox 98.6 F 99 112/74 97 01/29/18 12:07 01/29/18 12:07 01/29/18 12:07 01/29/18 12:07 Course - Vital Signs Vital signs: Temp Pulse Resp BP Pulse Ox 98.6 F 99 112/74 97 01/29/18 12:07 01/29/18 12:07 01/29/18 12:07 01/29/18 12:07 Doctor's Discharge - Discharge Referrals: JOANA NUNO MD [Primary Care Provider] - Follow up as needed
[2018-01-29 13:57] LABS: ABSOLUTE EOSINOPHILS # (AUTO) 0.1 10^3/uL (0.0-0.6); ABSOLUTE LYMPHOCYTES (AUTO) 2.3 10^3/uL (0.5-4.7); ABSOLUTE MONOCYTES (AUTO) 0.5 10^3/uL (0.1-1.4); ABSOLUTE NEUT (AUTO) 5.5 10^3/uL (1.7-8.2); APPEARANCE,URINE SLIGHTLY-CLOUDY; BASOPHILS % (AUTO) 0.3 % (0-2); BILIRUBIN,URINE NEGATIVE (NEGATIVE); COLOR,URINE YELLOW; EOSINOPHILS % (AUTO) 1.2 % (0-6); GLUCOSE, URINE NEGATIVE (NEGATIVE); HEMATOCRIT 39.3 % (36.0-47.0); HEMOGLOBIN 13.1 g/dL (12.0-15.5); KETONES,URINE NEGATIVE (NEGATIVE); LEUKOCYTE ESTERASE,URINE SMALL (NEGATIVE); LYMPHOCYTES % (AUTO) 27.4 % (13-45); MEAN CORPUSCULAR HEMOGLOBIN 28.8 pg (27.0-33.4); MEAN CORPUSCULAR HGB CONC 33.4 g/dL (32.0-36.0); MEAN CORPUSCULAR VOLUME 86 fl (80-97); MONOCYTES % (AUTO) 6.2 % (3-13); NITRITE,URINE NEGATIVE (NEGATIVE); PLATELET COUNT 417 10^3/uL (150-450); PROTEIN,URINE NEGATIVE (NEGATIVE); RED BLOOD COUNT 4.56 10^6/uL (3.72-5.28); RED CELL DISTRIBUTION WIDTH 15.2 % (11.5-14.0); SEGMENTED NEUTROPHILS % (AUTO) 64.9 % (42-78); TOTAL CELLS COUNTED % (AUTO) 100 %; URINE SPECIFIC GRAVITY 1.018; WHITE BLOOD COUNT 8.4 10^3/uL (4.0-10.5)
[2018-01-29 14:21] LABS: ALANINE AMINOTRANSFERASE 32 U/L (9-52); ALBUMIN 4.5 g/dL (3.5-5.0); ALKALINE PHOSPHATASE 135 U/L (38-126); ANION GAP 13 (5-19); ASPARTATE AMINO TRANSFERASE 30 U/L (14-36); BILIRUBIN,DIRECT 0.3 mg/dL (0.0-0.4); BILIRUBIN,TOTAL 0.5 mg/dL (0.2-1.3); BLOOD UREA NITROGEN 14 mg/dL (7-20); CALCIUM 9.4 mg/dL (8.4-10.2); CARBON DIOXIDE 27 mmol/L (22-30); CHLORIDE 106 mmol/L (98-107); GLUCOSE 79 mg/dL (75-110); SODIUM 145.7 mmol/L (137-145); TOTAL PROTEIN 8.7 g/dL (6.3-8.2)
--- NOTE | 2018-01-29 14:50 | RADIOLOGY REPORT (SQ) ---
EXAM DESCRIPTION: CT ABD/PELVIS WITH IV ONLY COMPLETED DATE/TIME: 01/29/2018 2:15 pm REASON FOR STUDY: post-op swelling, pain COMPARISON: Abdominal ultrasound dated 01/09/2018 TECHNIQUE: CT scan of the abdomen and pelvis performed using helical scanning technique with dynamic intravenous contrast injection. No oral contrast. Images reviewed with lung, soft tissue, and bone windows. Reconstructed coronal and sagittal MPR images reviewed. Delayed images for evaluation of the urinary system also acquired. All images stored on PACS. All CT scanners at this facility use dose modulation, iterative reconstruction, and/or weight based d osing when appropriate to reduce radiation dose to as low as reasonably achievable (ALARA). [facility]: Dose Right [facility]: CareDose [facility]: Dose Right [facility]: Teradose 4D [facility]: Expensify CONTRAST TYPE AND DOSE: contrast/concentration: Isovue 370.00 mg/ml; Total Contrast Delivered: 76.0 ml; Total Saline Delivered: 67.0 ml 76 mL Isovue 370 RENAL FUNCTION: None required. The patient is less than 50 years old. RADIATION DOSE: CT Rad equipment meets quality standard of care and radiation dose reduction techniq ues were employed. CTDIvol: 5.7 - 7.2 mGy. DLP: 643 mGy-cm.. LIMITATIONS: There is a relative paucity of mesenteric and retroperitoneal fat making delineation of abdominal and pelvic structures somewhat difficult. FINDINGS: LOWER CHEST: No significant findings. No nodules or infiltrates. LIVER: Normal size. No masses. No dilated ducts. SPLEEN: Normal size. No focal lesions. PANCREAS: No masses. No significant calcifications. No adjacent inflammation or peripancreatic fluid collections. Pancreatic duct not dilated. GALLBLADDER: No identified stones by CT criteria. No inflammatory changes to suggest cholecystitis. ADRENAL GLANDS: No significant masses or asymmetry. RIGHT KIDNEY AND URETER: No solid masses. No significant calcifications. No hydronephrosis or hyd roureter. LEFT KIDNEY AND URETER: No solid masses. No significant calcifications. No hydronephrosis or hydr oureter. AORTA AND VESSELS: No aneurysm. No dissection. Renal arteries, SMA, celiac without stenosis. RETROPERITONEUM: No retroperitoneal adenopathy, hemorrhage or masses. BOWEL AND PERITONEAL CAVITY: No masses or inflammatory changes. No free fluid or peritoneal masses. APPENDIX: Not identified PELVIS: uterus is identified. No free fluid. Normal bladder. ABDOMINAL WALL: There is soft tissue stranding in the subcutaneous fat and associated skin thickening at the site of the presumably postsurgical in nature. These could be edematous or inflamm atory in nature. I cannot exclude an associated fluid component which presumably is postsurgical in nature. The possibility of an infectious process cannot be completely excluded. Clinical correlatio n is recommended. BONES: No significant or acute findings. OTHER: No other significant finding. IMPRESSION: There is soft tissue stranding in the subcutaneous fat and associated skin thickening at the site of the presumably postsurgical in nature. These could be edematous or inflammato ry in nature. I cannot exclude an associated fluid component which presumably is postsurgical in noelle ure. The possibility of an infectious process cannot be completely excluded. Clinical correlation i s recommended. uterus is identified in the pelvis. Other findings as noted above TECHNICAL DOCUMENTATION: JOB ID: [id number] Quality ID # [id number]: Final reports with documentation of one or more dose reduction techniques (e.g., Au tomated exposure control, adjustment of the mA and/or kV according to patient size, use of iterative reconstruction technique) 2010 [employer]- All Rights Reserved Reading location - IP/workstation name: [email or web address]
[2018-01-29] MEDS ORDERED: CEPHALEXIN 500 MG CAPSULE PO ONE (15:58)
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
[2018-01-29 16:38] VITALS: BP 110/72
== END 2018-01-29 16:36 | disposition home or self-care (01) ==
LOC: ER 12:02
DX: O90.2 Hematoma of obstetric wound (principal); O92.79 Other disorders of lactation; O99.335 Smoking (tobacco) complicating the puerperium; G89.18 Other acute postprocedural pain
CPT/HCPCS: 99284; 96374; 36415; 85025; 80053; 81001; 74177; S0119; J3010

== ENCOUNTER 2018-02-23 10:34 | Emergency (ER) | payer MEDICAID ==
--- NOTE | 2018-02-23 11:40 | ER Document Report ---
HPI - HPI Patient complains to provider of: Fell and injured right thumb Onset: Yesterday Pain Level: 5 Context: 27-year-old female fell last night and injured her right thumb. She believes she hyper extended it. It is tender in the thenar aspect of the right thumb. Associated Symptoms: None Exacerbated by: Movement Relieved by: Denies Similar symptoms previously: No Recently seen / treated by doctor: No - ROS ROS below otherwise negative: Yes Systems Reviewed and Negative: Yes All other systems reviewed and negative - REPRODUCTIVE Reproductive: REPORTS: : Past Medical History - General Information source: Patient - Social History Smoking Status: Current Every Day Smoker Chew tobacco use (# tins/day): No Frequency of alcohol use: None Drug Abuse: None Family History: Reviewed & Not Pertinent Patient has suicidal ideation: No Patient has homicidal ideation: No - Medical History Medical History: Negative Renal/ Medical History: Denies: Hx Peritoneal Dialysis Past Surgical History: Reports: Hx Section - x 1 - Immunizations Immunizations up to date: Yes Hx Diphtheria, Pertussis, Tetanus Vaccination: Yes Vertical Provider Document - CONSTITUTIONAL Agree With Documented VS: Yes Exam Limitations: No Limitations - INFECTION CONTROL TRAVEL OUTSIDE OF THE [place] IN LAST 30 DAYS: No - MUSCULOSKELETAL/EXTREMETIES Musculoskeletal/Extremeties: MAEW, FROM, Tender, Edema - Thenar aspect of the right thumb, nontender snuffbox - NEURO Level of Consciousness: Alert Course - Re-evaluation Re-evalutation: 02/23/18 11:57 Prelim thumb x-ray is negative we will place the patient in a thumb spica and she call me back in our for results. 02/23/18 11:59 Patient decided against the thumb spica and only wants an Wilmar wrap. - Vital Signs Vital signs: Temp Pulse Resp BP Pulse Ox 98.9 F 55 L 16 108/68 92 02/23/18 10:37 02/23/18 10:37 02/23/18 10:37 02/23/18 10:37 02/23/18 10:37 Discharge - Discharge Clinical Impression: Right thumb sprain Condition: Good Disposition: HOME, SELF-CARE Instructions: Sprained Thumb ([facility]), Splint Precautions ([facility]), Temporary Splint ([facility]) Additional Instructions: Splint for comfort Tylenol up to 4000 mg a day for pain Ibuprofen for pain See the orthopedist if you persist to have a problem Call me in 1 hour for the final x-ray report at [phone] Prescriptions: Ibuprofen [Motrin 600 mg Tablet] 600 mg PO Q8HP PRN #30 tablet PRN Reason: Referrals: NORBERTO SIERRA MD [ACTIVE STAFF] - Follow up as needed
[2018-02-23 11:50] VITALS: BP 108/68
--- NOTE | 2018-02-23 12:02 | RADIOLOGY REPORT (SQ) ---
EXAM DESCRIPTION: HAND RIGHT 3 VIEWS COMPLETED DATE/TIME: 02/23/2018 11:41 am REASON FOR STUDY: injury COMPARISON: None. EXAM PARAMETERS: NUMBER OF VIEWS: Three views. TECHNIQUE: AP, lateral and oblique radiographic images acquired of the right hand. LIMITATIONS: None. FINDINGS: MINERALIZATION: Normal. BONES: No acute fracture or dislocation. No worrisome bone lesions. JOINTS: No effusions. SOFT TISSUES: No soft tissue swelling. No foreign body. OTHER: No other significant finding. IMPRESSION: 1. NEGATIVE STUDY OF THE RIGHT HAND. TECHNICAL DOCUMENTATION: JOB ID: [id number] [employer] All Rights Reserved Reading location - IP/workstation name: [email or web address]
== END 2018-02-23 12:06 | disposition home or self-care (01) ==
LOC: ER 10:34
DX: S63.601A Unspecified sprain of right thumb, initial encounter (principal); W19.XXXA Unspecified fall, initial encounter; F17.200 Nicotine dependence, unspecified, uncomplicated
CPT/HCPCS: 99283

== ENCOUNTER 2018-06-05 15:05 | Emergency (ER) | payer SELFPAY ==
[2018-06-05] MEDS ORDERED: NORMAL SALINE 1000 ML 1,000 ML IV ONE (16:17)
[2018-06-05] MEDS ORDERED: ONDANSETRON HCL INJ/PF 4 MG/2 ML SDV IV ONE (16:18)
[2018-06-05] MEDS ORDERED: FAMOTIDINE INJ/PF 20 MG/2 ML SDV IV ONE (16:18)
[2018-06-05] MEDS ORDERED: KETOROLAC TROMETHAMINE INJ/PF 30 MG/1 ML SDV IV ONE (16:18)
--- NOTE | 2018-06-05 16:21 | ER Document Report ---
ED GI/ - General Chief Complaint: Nausea/Vomiting/Diarrhea Stated Complaint: ABDOMINAL PAIN Time Seen by Provider: 06/05/18 16:02 Notes: 28-year-old female, mother of 3. A few months from to the emergency department complaining of nausea, vomiting, diarrhea and abdominal pain. Diffuse abdominal pain. No obvious fever at this time. Nothing seems to make it better or worse. States that she can get off the toilet. Requesting something to make the diarrhea stopped. States that one other child in the home has also had similar illness this week. TRAVEL OUTSIDE OF THE [place] IN LAST 30 DAYS: No - HPI Patient complains to provider of: Abdominal pain, Diarrhea, Vomiting Timing/Duration: Gradual Quality of pain: Achy Severity at maximum: Moderate Severity in ED: Moderate Pain Level: 3 - Related Data Allergies/Adverse Reactions: No Known Allergies Allergy (Verified 02/23/18 10:34) Past Medical History - General Information source: Patient - Social History Smoking Status: Current Every Day Smoker Cigarette use (# per day): Yes Chew tobacco use (# tins/day): No Frequency of alcohol use: None Drug Abuse: None Lives with: Family Family History: Reviewed & Not Pertinent Patient has suicidal ideation: No Patient has homicidal ideation: No - Medical History Medical History: Negative Renal/ Medical History: Denies: Hx Peritoneal Dialysis Past Surgical History: Reports: Hx Section - x2, 1 - Immunizations Immunizations up to date: Yes Hx Diphtheria, Pertussis, Tetanus Vaccination: Yes Review of Systems - Review of Systems Notes: Constitutional: denies: Chills, Diaphoresis, Fever, Malaise, Weakness EENT: denies: Eye discharge, Blurred vision, Tearing, Double vision, Nose congestion, Nose discharge, Throat swelling, Mouth pain Cardiovascular: denies: Palpitations, Heart racing, Orthopnea, Dyspnea, Chest pain Respiratory: denies: Cough, Hurts to breathe, Wheezing, Shortness of breath Gastrointestinal: Complaining of abdominal pain, nausea, vomiting and diarrhea. Genitourinary: denies: Burning, Dysuria, Discharge, Frequency, Flank pain, Hematuria Musculoskeletal: denies: Joint pain, Joint swelling, Muscle pain, Muscle stiffness, back pain Hematologic/Lymphatic: denies: Anemia, Easy bleeding, Easy bruising, Blood clots Neurological/Psychological: denies: Confusion, Dementia, Depression, Loss of consciousness Skin: No lesions, no masses, no skin breakdown, no abscesses Physical Exam - Vital signs Vitals: Temp Pulse Resp BP Pulse Ox 98 F 88 18 114/70 97 06/05/18 15:16 06/05/18 15:16 06/05/18 15:16 06/05/18 15:16 06/05/18 15:16 Interpretation: Normal - General General appearance: Appears well, Alert - HEENT Head: Normocephalic, Atraumatic Eyes: Normal Pupils: PERRL - Respiratory Respiratory status: No respiratory distress Chest status: Nontender Breath sounds: Normal Chest palpation: Normal - Cardiovascular Rhythm: Regular Heart sounds: Normal auscultation Murmur: No - Abdominal Inspection: Normal Distension: No distension Bowel sounds: Normal Tenderness: Tender - Mild diffuse tenderness. No guarding or rebound. Organomegaly: No organomegaly - Back Back: Normal, Nontender - Extremities General upper extremity: Normal inspection, Nontender, Normal color, Normal ROM , Normal temperature General lower extremity: Normal inspection, Nontender, Normal color, Normal ROM , Normal temperature, Normal weight bearing. No: Nacho's sign - Neurological Neuro grossly intact: Yes Cognition: Normal Orientation: AAOx4 [place] Coma Scale Eye Opening: Spontaneous [place] Coma Scale Verbal: Oriented [place] Coma Scale Motor: Obeys Commands [place] Coma Scale Total: 15 Speech: Normal Motor strength normal: LUE, RUE, LLE, RLE Sensory: Normal - Psychological Associated symptoms: Normal affect, Normal mood - Skin Skin Temperature: Warm Skin Moisture: Dry Skin Color: Normal Course - Re-evaluation Re-evalutation: 06/05/18 18:20 Laboratory 06/05/18 06/05/18 06/05/18 16:00 17:14 17:14 WBC 6.7 RBC 4.84 Hgb 14.8 Hct 43.9 MCV 91 MCH 30.5 MCHC 33.6 RDW 14.7 H Plt Count 217 Seg Neutrophils % 64.3 Lymphocytes % 26.2 Monocytes % 7.4 Eosinophils % 1.6 Basophils % 0.5 Absolute Neutrophils 4.3 Absolute Lymphocytes 1.8 Absolute Monocytes 0.5 Absolute Eosinophils 0.1 Absolute Basophils 0.0 Sodium 141.9 Potassium 4.0 Chloride 102 Carbon Dioxide 27 Anion Gap 13 BUN 13 Creatinine 0.73 Est GFR ( Amer) > 60 Est GFR (Non-Af Amer) > 60 Glucose 91 Calcium 9.5 Total Bilirubin 1.3 Direct Bilirubin 0.2 Neonat Total Bilirubin Not Reportable Neonat Direct Bilirubin Not Reportable Neonat Indirect Bili Not Reportable AST 32 ALT 31 Alkaline Phosphatase 65 Total Protein 8.5 H Albumin 5.0 Lipase 28.1 Urine Color YELLOW Urine Appearance SLIGHTLY-CLOUDY Urine pH 5.0 Ur Specific [place] 1.021 Urine Protein NEGATIVE Urine Glucose (UA) NEGATIVE Urine Ketones NEGATIVE Urine Blood NEGATIVE Urine Nitrite NEGATIVE Urine Bilirubin NEGATIVE Urine Urobilinogen NEGATIVE Ur Leukocyte Esterase TRACE H Urine WBC (Auto) 6 Urine RBC (Auto) 0 U Hyaline Cast (Auto) 4 Squamous Epi Cells Auto 5 Urine Mucus (Auto) MANY Urine Ascorbic Acid 40 H Urine HCG, Qual NEGATIVE All labs are unremarkable. Patient is received fluids and medication. Patient feeling much better at this time. After fluids are done will DC with instructions with regards to gastroenteritis and viral - Vital Signs Vital signs: Temp Pulse Resp BP Pulse Ox 98 F 88 18 114/70 97 06/05/18 15:16 06/05/18 15:16 06/05/18 15:16 06/05/18 15:16 06/05/18 15:16 - Laboratory Result Diagrams: 06/05/18 17:14 06/05/18 17:14 Laboratory results interpreted by me: 06/05/18 06/05/18 06/05/18 16:00 17:14 17:14 RDW 14.7 H Total Protein 8.5 H Ur Leukocyte Esterase TRACE H Urine Ascorbic Acid 40 H Discharge - Discharge Clinical Impression: Viral gastroenteritis Condition: Good Disposition: HOME, SELF-CARE Instructions: Antinausea Medication ([facility]), Gastroenteritis (adult) ([facility]), Diarrhea, Nonspecific ([facility]) Additional Instructions: In the event that symptoms are getting worse or no better in the next 24 hours please return for repeat evaluation. Forms: Return to Work
[2018-06-05 17:41] LABS: ABSOLUTE EOSINOPHILS # (AUTO) 0.1 10^3/uL (0.0-0.6); ABSOLUTE LYMPHOCYTES (AUTO) 1.8 10^3/uL (0.5-4.7); ABSOLUTE MONOCYTES (AUTO) 0.5 10^3/uL (0.1-1.4); ABSOLUTE NEUT (AUTO) 4.3 10^3/uL (1.7-8.2); BASOPHILS % (AUTO) 0.5 % (0-2); EOSINOPHILS % (AUTO) 1.6 % (0-6); HEMATOCRIT 43.9 % (36.0-47.0); HEMOGLOBIN 14.8 g/dL (12.0-15.5); LYMPHOCYTES % (AUTO) 26.2 % (13-45); MEAN CORPUSCULAR HEMOGLOBIN 30.5 pg (27.0-33.4); MEAN CORPUSCULAR HGB CONC 33.6 g/dL (32.0-36.0); MEAN CORPUSCULAR VOLUME 91 fl (80-97); MONOCYTES % (AUTO) 7.4 % (3-13); PLATELET COUNT 217 10^3/uL (150-450); RED BLOOD COUNT 4.84 10^6/uL (3.72-5.28); RED CELL DISTRIBUTION WIDTH 14.7 % (11.5-14.0); SEGMENTED NEUTROPHILS % (AUTO) 64.3 % (42-78); TOTAL CELLS COUNTED % (AUTO) 100 %; WHITE BLOOD COUNT 6.7 10^3/uL (4.0-10.5)
[2018-06-05 17:53] LABS: APPEARANCE,URINE SLIGHTLY-CLOUDY; BILIRUBIN,URINE NEGATIVE (NEGATIVE); COLOR,URINE YELLOW; GLUCOSE, URINE NEGATIVE (NEGATIVE); KETONES,URINE NEGATIVE (NEGATIVE); LEUKOCYTE ESTERASE,URINE TRACE (NEGATIVE); NITRITE,URINE NEGATIVE (NEGATIVE); PROTEIN,URINE NEGATIVE (NEGATIVE); URINE SPECIFIC GRAVITY 1.021; UROBILINOGEN,URINE NEGATIVE mg/dL (<2.0)
[2018-06-05 18:04] LABS: ALANINE AMINOTRANSFERASE 31 U/L (9-52); ALKALINE PHOSPHATASE 65 U/L (38-126); ANION GAP 13 (5-19); ASPARTATE AMINO TRANSFERASE 32 U/L (14-36); BILIRUBIN,DIRECT 0.2 mg/dL (0.0-0.4); BILIRUBIN,TOTAL 1.3 mg/dL (0.2-1.3); BLOOD UREA NITROGEN 13 mg/dL (7-20); CALCIUM 9.5 mg/dL (8.4-10.2); CARBON DIOXIDE 27 mmol/L (22-30); CHLORIDE 102 mmol/L (98-107); GLUCOSE 91 mg/dL (75-110); LIPASE 28.1 U/L (23-300); SODIUM 141.9 mmol/L (137-145); TOTAL PROTEIN 8.5 g/dL (6.3-8.2)
[2018-06-05] MEDS ORDERED: ONDANSETRON ODT 4 MG TAB (6 TAB/ER DISP) PO PRN (18:58)
[2018-06-05 19:19] VITALS: BP 115/63
== END 2018-06-05 19:19 | disposition home or self-care (01) ==
LOC: ER 15:05
DX: A08.4 Viral intestinal infection, unspecified (principal); R11.2 Nausea with vomiting, unspecified; R10.84 Generalized abdominal pain; F17.210 Nicotine dependence, cigarettes, uncomplicated
CPT/HCPCS: 99284; 96361; 96374; 96375; 36415; 87086; 83690; 85025; 81025; 80053; 81001; J1885; J2405; J7030; S0028

== ENCOUNTER 2018-07-05 13:55 | Emergency (ER) | payer SELFPAY ==
--- NOTE | 2018-07-05 14:25 | ER Document Report ---
ED Medical Screen (RME) - General Chief Complaint: Chest Pain Stated Complaint: CHEST PAIN, LIGHT HEADED Time Seen by Provider: 07/05/18 14:21 Mode of Arrival: Ambulatory Information source: Patient Notes: 28-year-old female with no reported past medical history presents with complaint of right-sided chest pain that awoke her from sleep approximately 2 hours ago. She describes the pain as sharp, intermittent. Patient also had a near syncopal episode where she did fall to the floor, lose vision but could hear the people around her. She does state that she hit her head. Last menstrual period was 1 month prior to arrival. I have greeted and performed a rapid initial assessment of this patient. A comprehensive ED assessment and evaluation of the patient, analysis of test results and completion of medical decision making process we will be contacted by additional ED providers. PHYSICAL EXAMINATION: Vital signs reviewed-within normal limits GENERAL: Well-appearing, well-nourished and in no acute distress. LUNGS: No respiratory distress Musculoskeletal: Normal range of motion NEUROLOGICAL: Normal speech, normal gait. PSYCH: Normal mood, normal affect. SKIN: Warm, Dry, normal turgor, no rashes or lesions noted. TRAVEL OUTSIDE OF THE [place] IN LAST 30 DAYS: No - HPI Onset: Just prior to arrival Onset/Duration: Sudden Quality of pain: Sharp Severity: Moderate Associated Symptoms: Chest pain, Dizzy/lightheaded Exacerbated by: Denies Relieved by: Denies Similar symptoms previously: Yes Recently seen / treated by doctor: No - Related Data Smoking: Non-smoker Frequency of alcohol use: None Drug Abuse: None Allergies/Adverse Reactions: No Known Allergies Allergy (Verified 02/23/18 10:34) Past Medical History Renal/ Medical History: Denies: Hx Peritoneal Dialysis Past Surgical History: Reports: Hx Section - x2, 1 - Immunizations Immunizations up to date: Yes Hx Diphtheria, Pertussis, Tetanus Vaccination: Yes Physical Exam - Vital signs Vitals: Temp Pulse Resp BP Pulse Ox 98.3 F 56 L 18 128/69 H 100 07/05/18 14:18 07/05/18 14:18 07/05/18 14:18 07/05/18 14:18 07/05/18 14:18 Course - Vital Signs Vital signs: Temp Pulse Resp BP Pulse Ox 98.3 F 56 L 18 128/69 H 100 07/05/18 14:18 07/05/18 14:18 07/05/18 14:18 07/05/18 14:18 07/05/18 14:18
--- NOTE | 2018-07-05 15:34 | RADIOLOGY REPORT (SQ) ---
EXAM DESCRIPTION: CHEST 2 VIEWS COMPLETED DATE/TIME: 07/05/2018 3:23 pm REASON FOR STUDY: pain COMPARISON: None. EXAM PARAMETERS: NUMBER OF VIEWS: two views TECHNIQUE: Digital Frontal and Lateral radiographic views of the chest acquired. RADIATION DOSE: NA LIMITATIONS: none FINDINGS: LUNGS AND PLEURA: No consolidation, pneumothorax or pleural effusion. MEDIASTINUM AND HILAR STRUCTURES: No masses or contour abnormalities. HEART AND VASCULAR STRUCTURES: Heart normal size. No evidence for failure. BONES: No acute findings. HARDWARE: None in the chest. IMPRESSION: NO ACUTE RADIOGRAPHIC FINDING IN THE CHEST. TECHNICAL DOCUMENTATION: JOB ID: [id number] [employer]- All Rights Reserved Reading location - IP/workstation name: [email or web address]
[2018-07-05 15:40] LABS: ABSOLUTE EOSINOPHILS # (AUTO) 0.2 10^3/uL (0.0-0.6); ABSOLUTE LYMPHOCYTES (AUTO) 3.2 10^3/uL (0.5-4.7); ABSOLUTE MONOCYTES (AUTO) 0.5 10^3/uL (0.1-1.4); ABSOLUTE NEUT (AUTO) 4.2 10^3/uL (1.7-8.2); BASOPHILS % (AUTO) 0.6 % (0-2); HEMATOCRIT 41.9 % (36.0-47.0); HEMOGLOBIN 14.2 g/dL (12.0-15.5); LYMPHOCYTES % (AUTO) 39.2 % (13-45); MEAN CORPUSCULAR HEMOGLOBIN 31.8 pg (27.0-33.4); MEAN CORPUSCULAR VOLUME 93 fl (80-97); MONOCYTES % (AUTO) 6.6 % (3-13); PLATELET COUNT 233 10^3/uL (150-450); RED BLOOD COUNT 4.48 10^6/uL (3.72-5.28); SEGMENTED NEUTROPHILS % (AUTO) 51.6 % (42-78); TOTAL CELLS COUNTED % (AUTO) 100 %; WHITE BLOOD COUNT 8.1 10^3/uL (4.0-10.5)
[2018-07-05 15:42] LABS: APPEARANCE,URINE SLIGHTLY-CLOUDY; BILIRUBIN,URINE NEGATIVE (NEGATIVE); COLOR,URINE YELLOW; GLUCOSE, URINE NEGATIVE (NEGATIVE); KETONES,URINE NEGATIVE (NEGATIVE); LEUKOCYTE ESTERASE,URINE NEGATIVE (NEGATIVE); NITRITE,URINE NEGATIVE (NEGATIVE); PROTEIN,URINE NEGATIVE (NEGATIVE); URINE SPECIFIC GRAVITY 1.019; UROBILINOGEN,URINE NEGATIVE mg/dL (<2.0)
[2018-07-05 15:53] LABS: URINE AMPHETAMINES SCREEN NEGATIVE; URINE BARBITURATES SCREEN NEGATIVE; URINE BENZODIAZEPINES SCREEN NEGATIVE; URINE COCAINE SCREEN NEGATIVE; URINE MARIJUANA (THC) SCREEN UNCONFIRMED POSITIVE; URINE METHADONE SCREEN NEGATIVE; URINE PHENCYCLIDINE SCREEN NEGATIVE
[2018-07-05 15:54] LABS: ANION GAP 6 (5-19); BLOOD UREA NITROGEN 12 mg/dL (7-20); CARBON DIOXIDE 27 mmol/L (22-30); CHLORIDE 104 mmol/L (98-107); GLUCOSE 85 mg/dL (75-110); POTASSIUM 4.9 mmol/L (3.6-5.0); SODIUM 136.9 mmol/L (137-145)
[2018-07-05] MEDS ORDERED: ONDANSETRON HCL INJ/PF 4 MG/2 ML SDV IV ONE (16:18)
[2018-07-05] MEDS ORDERED: MORPHINE SULFATE 10 MG/ML INJ IV ONE (16:18)
--- NOTE | 2018-07-05 16:18 | ER Document Report ---
ED General - General Chief Complaint: Chest Pain Stated Complaint: CHEST PAIN, LIGHT HEADED Time Seen by Provider: 07/05/18 14:21 Mode of Arrival: Ambulatory Information source: Patient Notes: Patient is an otherwise healthy 28-year-old female who presents today with complaints of chest pain. She states that the chest pain woke her up at noon today. She describes it as a sharp pain on the right side of her chest. She states that the pain is increased with deep breathing. Patient is very tearful upon initial evaluation. She also reports that she had what she describes as a blackout. Where she was able to hear everything around her however she states that she could not see anything. Her boyfriend is at bedside states this episode lasted 1-2 minutes. She denies any history of similar episodes. She reports she ate a normal breakfast this morning. As to the chest pain, she does report she had a however this was done in January. She denies the use of the oral contraceptives, she denies any history of pulmonary embolism or DVT. She does report that she uses tobacco daily. TRAVEL OUTSIDE OF THE [place] IN LAST 30 DAYS: No - Related Data Allergies/Adverse Reactions: No Known Allergies Allergy (Verified 02/23/18 10:34) Past Medical History - General Information source: Patient - Social History Smoking Status: Never Smoker Chew tobacco use (# tins/day): No Frequency of alcohol use: None Drug Abuse: None Family History: Reviewed & Not Pertinent Patient has suicidal ideation: No Patient has homicidal ideation: No - Medical History Medical History: Negative Renal/ Medical History: Denies: Hx Peritoneal Dialysis Past Surgical History: Reports: Hx Section - x2, 1 - Immunizations Immunizations up to date: Yes Hx Diphtheria, Pertussis, Tetanus Vaccination: Yes Review of Systems - Review of Systems Cardiovascular: Chest pain Respiratory: denies: Short of breath Neurological/Psychological: Other - Possible syncope at home -: Yes All other systems reviewed and negative Physical Exam - Vital signs Vitals: Temp Pulse Resp BP Pulse Ox 98.3 F 56 L 18 128/69 H 100 07/05/18 14:18 07/05/18 14:18 07/05/18 14:18 07/05/18 14:18 07/05/18 14:18 - Notes Notes: PHYSICAL EXAMINATION: GENERAL: Well-appearing, well-nourished and in moderate distress. HEAD: Atraumatic, normocephalic. EYES: Pupils equal round and reactive to light, extraocular movements intact, conjunctiva are normal. ENT: Nares patent, oropharynx clear without exudates. Moist mucous membranes. NECK: Normal range of motion, supple without lymphadenopathy LUNGS: Breath sounds clear to auscultation bilaterally and equal. No wheezes rales or rhonchi. HEART: Regular rate and rhythm without murmurs ABDOMEN: Soft, nontender, nondistended abdomen. No guarding, no rebound. No masses appreciated. Female : No CVA tenderness. Musculoskeletal: Normal range of motion, no pitting or edema. No cyanosis. NEUROLOGICAL: Cranial nerves grossly intact. Normal speech, normal gait. Normal sensory, motor exams PSYCH: Tearful, anxious. SKIN: Warm, Dry, normal turgor, no rashes or lesions noted. Course - Re-evaluation Re-evalutation: Physical examination is unremarkable other than reproducible chest pain to the right chest wall. Patient does be very anxious and tearful, she is in the room arguing with her significant other. CBC, CMP, chest x-ray and head CT are unremarkable. Patient did have symptomatic relief after administration of IV Toradol and IV Ativan. This appears to be more of an anxiety presentation. Patient is PERC negative although I did add on a d-dimer as patient is a smoker. The d-dimer was negative so no indication for CTA. Patient states she cannot afford any prescription medication so I will send her home with a dispense pack of both Zofran and Vicodin for the pain and nausea. Patient given strict ED return precautions. - Vital Signs Vital signs: Temp Pulse Resp BP Pulse Ox 98.9 F 60 18 124/67 97 07/05/18 19:27 07/05/18 19:27 07/05/18 19:27 07/05/18 19:27 07/05/18 19:27 - Laboratory Result Diagrams: 07/05/18 15:17 07/05/18 15:17 Laboratory results interpreted by me: 07/05/18 07/05/18 15:17 15:17 RDW 15.0 H Sodium 136.9 L Discharge - Discharge Clinical Impression: Near syncope Chest pain Qualifiers: Chest pain type: unspecified Qualified Code(s): R07.9 - Chest pain, unspecified Condition: Stable Disposition: HOME, SELF-CARE Additional Instructions: Chest Pain of Unclear Cause The exact cause of your chest pain isn't clear. Fortunately, there is no evidence of a dangerous medical condition. Further testing may be required to find the source of the pain. Most often, we find that this pain is coming from the chest wall -- the muscles or rib joints in the chest. But chest pain can come from the lung and lung lining, the esophagus, the heart valves or heart lining, and even the stomach or gallbladder. Rest. Eat lightly until the pain is gone. We may prescribe medicine for pain and inflammation. You should call the physician immediately if the pain radiates to the shoulder, jaw or arms; if you start to run a fever or develop a cough; or if you develop shortness of breath, or other new or alarming symptoms. Your workup today was unremarkable. I cannot find any reason for your chest pain. All of your blood work was normal, your chest x-ray was normal. Please take the medications that I have prescribed. You may also take ibuprofen 600 mg every 6 hours. Please follow-up with your primary care provider if this pain persists over the next 1-2 days.
[2018-07-05 16:53] LABS: ABSOLUTE RETICS # 0.061 10^6/uL (0.028-0.122); RETICULOCYTE COUNT (AUTO) 1.37 % (0.66-2.85)
--- NOTE | 2018-07-05 17:02 | RADIOLOGY REPORT (SQ) ---
EXAM DESCRIPTION: CT HEAD WITHOUT COMPLETED DATE/TIME: 07/05/2018 4:53 pm REASON FOR STUDY: syncope COMPARISON: None. TECHNIQUE: Axial images acquired through the brain without intravenous contrast. Images reviewed wi th bone, brain and subdural windows. Additional sagittal and coronal reconstructions were generated. Images stored on PACS. All CT scanners at this facility use dose modulation, iterative reconstruction, and/or weight based d osing when appropriate to reduce radiation dose to as low as reasonably achievable (ALARA). [facility]: Dose Right [facility]: CareDose [facility]: Dose Right [facility]: Teradose 4D [facility]: [employer] RADIATION DOSE: CT Rad equipment meets quality standard of care and radiation dose reduction techniq ues were employed. CTDIvol: 53.2 mGy. DLP: 1070 mGy-cm. mGy. LIMITATIONS: None. FINDINGS: VENTRICLES: Normal size and contour. CEREBRUM: No masses. No hemorrhage. No midline shift. No evidence for acute infarction. Normal gra y/white matter differentiation. No areas of low density in the white matter. CEREBELLUM: No masses. No hemorrhage. No alteration of density. No evidence for acute infarction. EXTRAAXIAL SPACES: No fluid collections. No masses. ORBITS AND GLOBE: No intra- or extraconal masses. Normal contour of globe without masses. CALVARIUM: No fracture. PARANASAL SINUSES: No fluid or mucosal thickening. SOFT TISSUES: No mass or hematoma. OTHER: No other significant finding. IMPRESSION: NORMAL BRAIN CT WITHOUT CONTRAST. EVIDENCE OF ACUTE STROKE: NO. COMMENT: Quality ID # [id number]: Final reports with documentation of one or more dose reduction techniques (e.g., Automated exposure control, adjustment of the mA and/or kV according to patient size, use of iterative reconstruction technique) TECHNICAL DOCUMENTATION: JOB ID: [id number] [employer]- All Rights Reserved Reading location - IP/workstation name: [email or web address]
[2018-07-05] MEDS ORDERED: KETOROLAC TROMETHAMINE INJ/PF 30 MG/1 ML SDV IV ONE (17:25)
[2018-07-05] MEDS ORDERED: LORAZEPAM INJ 2 MG/1 ML VIAL IV ONE (17:25)
[2018-07-05] MEDS ORDERED: ONDANSETRON ODT 4 MG TAB (6 TAB/ER DISP) PO PRN (18:51)
[2018-07-05] MEDS ORDERED: HYDROCODONE/ACETAMINOPHEN 5-325 MG (6 TAB/ER DISP) PO PRN (18:51)
[2018-07-05 19:40] VITALS: BP 124/67
--- NOTE | 2018-07-06 00:57 | EKG REPORT ---
SEVERITY:- BORDERLINE ECG - SINUS RHYTHM BORDERLINE T ABNORMALITIES, ANT-LAT LEADS : Confirmed by: Codi St MD 06-Jul-2018 00:56:51
== END 2018-07-05 19:40 | disposition home or self-care (01) ==
LOC: ER 13:55 → EH 18:19 → UNDOADMIN 18:19 → ER 19:40
DX: R55 Syncope and collapse (principal); R07.9 Chest pain, unspecified; F17.200 Nicotine dependence, unspecified, uncomplicated
CPT/HCPCS: 93005; 99285; 96374; 96375; 36415; 85025; 81025; 85045; 80048; 81001; 80307; 85379; 71046; 70450; 93010; J1885; J2270; J2060; J2405

== ENCOUNTER 2018-07-06 23:42 | Emergency (ER) | payer SELFPAY ==
--- NOTE | 2018-07-07 01:21 | ER Document Report ---
ED Cardiac - General Chief Complaint: Chest Pain Stated Complaint: CHEST PAIN Time Seen by Provider: 07/07/18 01:21 Notes: 28-year-old female patient emergency department for evaluation of chest pain. Patient was seen here yesterday for the same. States that she had sickle cell disease however her retic count was normal. States that her pain continues. Hurts to take a deep breath. Patient does smoke. D-dimer was performed yesterday and was normal. TRAVEL OUTSIDE OF THE [place] IN LAST 30 DAYS: No - HPI Patient complains to provider of: Chest pain, Shortness of breath - Related Data Allergies/Adverse Reactions: No Known Allergies Allergy (Verified 02/23/18 10:34) Past Medical History - General Information source: Patient - Social History Smoking Status: Current Every Day Smoker Cigarette use (# per day): Yes Frequency of alcohol use: None Drug Abuse: None Family History: Reviewed & Not Pertinent - Medical History Notes: Patient states she has sickle cell disease Renal/ Medical History: Denies: Hx Peritoneal Dialysis Past Surgical History: Reports: Hx Section - x2, 1 - Immunizations Immunizations up to date: Yes Hx Diphtheria, Pertussis, Tetanus Vaccination: Yes Review of Systems - Review of Systems Notes: Constitutional: denies: Chills, Diaphoresis, Fever, Malaise, Weakness EENT: denies: Eye discharge, Blurred vision, Tearing, Double vision, Nose congestion, Nose discharge, Throat swelling, Mouth pain Cardiovascular: denies: Palpitations, Heart racing, Orthopnea, Dyspnea, and complaining of chest pain worse with deep inspiration Respiratory: denies: Cough, Hurts to breathe, Wheezing, Shortness of breath Gastrointestinal: denies: Abdominal pain, Diarrhea, Nausea, Vomiting, Black stools, bright red blood in stool Genitourinary: denies: Burning, Dysuria, Discharge, Frequency, Flank pain, Hematuria Musculoskeletal: denies: Joint pain, Joint swelling, Muscle pain, Muscle stiffness, back pain Hematologic/Lymphatic: denies: Anemia, Easy bleeding, Easy bruising, Blood clots Neurological/Psychological: denies: Confusion, Dementia, Depression, Loss of consciousness Skin: No lesions, no masses, no skin breakdown, no abscesses Physical Exam - Vital signs Vitals: Temp Pulse Resp BP Pulse Ox 98 F 69 16 107/68 97 07/06/18 23:54 07/06/18 23:54 07/06/18 23:54 07/06/18 23:54 07/06/18 23:54 Interpretation: Normal - General General appearance: Appears well, Alert - HEENT Head: Normocephalic, Atraumatic Eyes: Normal Pupils: PERRL - Respiratory Respiratory status: No respiratory distress Chest status: Nontender Breath sounds: Normal Chest palpation: Normal - Cardiovascular Rhythm: Regular Heart sounds: Normal auscultation Murmur: No - Abdominal Inspection: Normal Distension: No distension Bowel sounds: Normal Tenderness: Nontender Organomegaly: No organomegaly - Back Back: Normal, Nontender - Extremities General upper extremity: Normal inspection, Nontender, Normal color, Normal ROM , Normal temperature General lower extremity: Normal inspection, Nontender, Normal color, Normal ROM , Normal temperature, Normal weight bearing. No: Nacho's sign - Neurological Neuro grossly intact: Yes Cognition: Normal Orientation: AAOx4 [place] Coma Scale Eye Opening: Spontaneous [place] Coma Scale Verbal: Oriented [place] Coma Scale Motor: Obeys Commands [place] Coma Scale Total: 15 Speech: Normal Motor strength normal: LUE, RUE, LLE, RLE Sensory: Normal - Psychological Associated symptoms: Normal affect, Normal mood - Skin Skin Temperature: Warm Skin Moisture: Dry Skin Color: Normal Course - Re-evaluation Re-evalutation: 07/07/18 03:17 Laboratory 07/07/18 07/07/18 07/07/18 01:40 01:40 01:40 WBC 8.2 RBC 4.05 Hgb 12.7 Hct 37.7 MCV 93 MCH 31.4 MCHC 33.8 RDW 15.1 H Plt Count 218 Seg Neutrophils % 69.0 Lymphocytes % 23.9 Monocytes % 5.7 Eosinophils % 1.1 Basophils % 0.3 Absolute Neutrophils 5.7 Absolute Lymphocytes 2.0 Absolute Monocytes 0.5 Absolute Eosinophils 0.1 Absolute Basophils 0.0 Retic Count (auto) Absolute Retic D-Dimer Sodium 141.0 Potassium 3.7 Chloride 116 H Carbon Dioxide 22 Anion Gap 3 L BUN 14 Creatinine 0.60 Est GFR ( Amer) > 60 Est GFR (Non-Af Amer) > 60 Glucose 88 Calcium 7.5 L Total Bilirubin 0.6 Direct Bilirubin 0.2 Neonat Total Bilirubin Not Reportable Neonat Direct Bilirubin Not Reportable Neonat Indirect Bili Not Reportable AST 21 ALT 30 Alkaline Phosphatase 51 Troponin I < 0.012 Total Protein 5.4 L Albumin 2.9 L Urine Color Urine Appearance Urine pH Ur Specific [place] Urine Protein Urine Glucose (UA) Urine Ketones Urine Blood Urine Nitrite Urine Bilirubin Urine Urobilinogen Ur Leukocyte Esterase Urine WBC (Auto) Urine RBC (Auto) U Hyaline Cast (Auto) Squamous Epi Cells Auto Calcium Oxalate Cr Auto Urine Mucus (Auto) Urine Ascorbic Acid Urine Opiates Screen Urine Methadone Screen Ur Barbiturates Screen Ur Phencyclidine Scrn Ur Amphetamines Screen U Benzodiazepines Scrn Urine Cocaine Screen U Marijuana (THC) Screen 07/07/18 07/07/18 07/07/18 01:40 01:40 01:40 WBC RBC Hgb Hct MCV MCH MCHC RDW Plt Count Seg Neutrophils % Lymphocytes % Monocytes % Eosinophils % Basophils % Absolute Neutrophils Absolute Lymphocytes Absolute Monocytes Absolute Eosinophils Absolute Basophils Retic Count (auto) Absolute Retic D-Dimer 0.27 Sodium Potassium Chloride Carbon Dioxide Anion Gap BUN Creatinine Est GFR ( Amer) Est GFR (Non-Af Amer) Glucose Calcium Total Bilirubin Direct Bilirubin Neonat Total Bilirubin Neonat Direct Bilirubin Neonat Indirect Bili AST ALT Alkaline Phosphatase Troponin I Total Protein Albumin Urine Color YELLOW Urine Appearance SLIGHTLY-CLOUDY Urine pH 5.0 Ur Specific [place] 1.025 Urine Protein 30 H Urine Glucose (UA) NEGATIVE Urine Ketones NEGATIVE Urine Blood NEGATIVE Urine Nitrite NEGATIVE Urine Bilirubin NEGATIVE Urine Urobilinogen 4.0 H Ur Leukocyte Esterase NEGATIVE Urine WBC (Auto) 4 Urine RBC (Auto) 2 U Hyaline Cast (Auto) 5 Squamous Epi Cells Auto 2 Calcium Oxalate Cr Auto MODERATE Urine Mucus (Auto) MANY Urine Ascorbic Acid 40 H Urine Opiates Screen UNCONFIRMED POSITIVE Urine Methadone Screen NEGATIVE Ur Barbiturates Screen NEGATIVE Ur Phencyclidine Scrn NEGATIVE Ur Amphetamines Screen NEGATIVE U Benzodiazepines Scrn NEGATIVE Urine Cocaine Screen NEGATIVE U Marijuana (THC) Screen UNCONFIRMED POSITIVE 07/07/18 01:40 WBC RBC Hgb Hct MCV MCH MCHC RDW Plt Count Seg Neutrophils % Lymphocytes % Monocytes % Eosinophils % Basophils % Absolute Neutrophils Absolute Lymphocytes Absolute Monocytes Absolute Eosinophils Absolute Basophils Retic Count (auto) 1.30 Absolute Retic 0.054 D-Dimer Sodium Potassium Chloride Carbon Dioxide Anion Gap BUN Creatinine Est GFR ( Amer) Est GFR (Non-Af Amer) Glucose Calcium Total Bilirubin Direct Bilirubin Neonat Total Bilirubin Neonat Direct Bilirubin Neonat Indirect Bili AST ALT Alkaline Phosphatase Troponin I Total Protein Albumin Urine Color Urine Appearance Urine pH Ur Specific [place] Urine Protein Urine Glucose (UA) Urine Ketones Urine Blood Urine Nitrite Urine Bilirubin Urine Urobilinogen Ur Leukocyte Esterase Urine WBC (Auto) Urine RBC (Auto) U Hyaline Cast (Auto) Squamous Epi Cells Auto Calcium Oxalate Cr Auto Urine Mucus (Auto) Urine Ascorbic Acid Urine Opiates Screen Urine Methadone Screen Ur Barbiturates Screen Ur Phencyclidine Scrn Ur Amphetamines Screen U Benzodiazepines Scrn Urine Cocaine Screen U Marijuana (THC) Screen Chest X-Ray 07/07/18 01:35 IMPRESSION: No acute cardiopulmonary findings. Complete repeat evaluation and workup performed today which once again is negative. D-dimer is normal. Reticulocyte count is normal so unlikely patient has sickle cell disease. May be she has sickle cell trait? Chest x-ray is normal. EKG unchanged. Pain is worse with deep inspiration so more than likely has a pleuritic type chest pain. Patient does smoke cigarettes as well as marijuana. I have advised her to stop using inhaled substances during this chest pain episode. Will discharge at this time with a Medrol Dosepak and albuterol. - Vital Signs Vital signs: Temp Pulse Resp BP Pulse Ox 98 F 69 16 107/68 97 07/06/18 23:54 07/06/18 23:54 07/06/18 23:54 07/06/18 23:54 07/06/18 23:54 - Laboratory Result Diagrams: 07/07/18 01:40 07/07/18 01:40 Laboratory results interpreted by me: 07/07/18 07/07/18 07/07/18 01:40 01:40 01:40 RDW 15.1 H Chloride 116 H Anion Gap 3 L Calcium 7.5 L Total Protein 5.4 L Albumin 2.9 L Urine Protein 30 H Urine Urobilinogen 4.0 H Urine Ascorbic Acid 40 H - EKG Interpretation by Me EKG shows normal: Sinus rhythm, [place], Intervals, QRS Complexes, ST-T Waves When compared to previous EKG there are: No significant change Discharge - Discharge Clinical Impression: Pleuritic chest pain Condition: Good Disposition: HOME, SELF-CARE Instructions: Pleurisy ([facility]) Additional Instructions: Please follow-up with your regular doctor if your symptoms persist. Return for any worsening symptoms or concerns. Prescriptions: Albuterol Sulfate [Ventolin Hfa 8 gm Mdi (1 Mdi/ER Disp)] 2 puff IH ASDIR PRN 5 Days #1 inhaler PRN Reason: Methylprednisolone [Medrol Dosepack (4 mg/Tab) 21 Tab/Dosepak] 21 tab PO DAILY # 1 dspk Forms: Return to Work Referrals: TIFFANIE YEH MD [COMMUNITY BASED STAFF] - Follow up in 1 week SERINA RODRIGEZ MD [ACTIVE STAFF] - Follow up as needed
[2018-07-07] MEDS ORDERED: KETOROLAC TROMETHAMINE INJ/PF 30 MG/1 ML SDV IV ONE (01:35)
[2018-07-07] MEDS ORDERED: METHYLPREDNISOLONE INJ 125 MG/2 ML SDV IV ONE (02:24)
[2018-07-07] MEDS ORDERED: ALBUTEROL SULFATE 0.083% NEB 2.5 MG/3 ML AMPUL NEB ONE (02:24)
[2018-07-07 02:27] LABS: ABSOLUTE EOSINOPHILS # (AUTO) 0.1 10^3/uL (0.0-0.6); ABSOLUTE MONOCYTES (AUTO) 0.5 10^3/uL (0.1-1.4); ABSOLUTE NEUT (AUTO) 5.7 10^3/uL (1.7-8.2); BASOPHILS % (AUTO) 0.3 % (0-2); EOSINOPHILS % (AUTO) 1.1 % (0-6); HEMATOCRIT 37.7 % (36.0-47.0); HEMOGLOBIN 12.7 g/dL (12.0-15.5); LYMPHOCYTES % (AUTO) 23.9 % (13-45); MEAN CORPUSCULAR HEMOGLOBIN 31.4 pg (27.0-33.4); MEAN CORPUSCULAR HGB CONC 33.8 g/dL (32.0-36.0); MEAN CORPUSCULAR VOLUME 93 fl (80-97); MONOCYTES % (AUTO) 5.7 % (3-13); PLATELET COUNT 218 10^3/uL (150-450); RED BLOOD COUNT 4.05 10^6/uL (3.72-5.28); RED CELL DISTRIBUTION WIDTH 15.1 % (11.5-14.0); TOTAL CELLS COUNTED % (AUTO) 100 %; WHITE BLOOD COUNT 8.2 10^3/uL (4.0-10.5)
--- NOTE | 2018-07-07 02:36 | RADIOLOGY REPORT (SQ) ---
EXAM DESCRIPTION: XR CHEST 1 VIEW COMPLETED DATE/TME: 07/07/2018 01:35 CLINICAL HISTORY: 28 years Female, chest pain COMPARISON:07/05/2018 NUMBER OF VIEWS/TECHNIQUE: 1/AP FINDINGS: Increased lung volume, clear parenchyma, normal cardiac silhouette, and intact bony thorax. IMPRESSION: No acute cardiopulmonary findings.
[2018-07-07 02:38] LABS: APPEARANCE,URINE SLIGHTLY-CLOUDY; BILIRUBIN,URINE NEGATIVE (NEGATIVE); CALCIUM OXALATE CRYSTALS,URINE MODERATE /HPF; COLOR,URINE YELLOW; GLUCOSE, URINE NEGATIVE (NEGATIVE); KETONES,URINE NEGATIVE (NEGATIVE); LEUKOCYTE ESTERASE,URINE NEGATIVE (NEGATIVE); NITRITE,URINE NEGATIVE (NEGATIVE); PROTEIN,URINE 30 mg/dL (NEGATIVE); URINE SPECIFIC GRAVITY 1.025
[2018-07-07 02:48] LABS: ALANINE AMINOTRANSFERASE 30 U/L (9-52); ALBUMIN 2.9 g/dL (3.5-5.0); ALKALINE PHOSPHATASE 51 U/L (38-126); ASPARTATE AMINO TRANSFERASE 21 U/L (14-36); BILIRUBIN,DIRECT 0.2 mg/dL (0.0-0.4); BILIRUBIN,TOTAL 0.6 mg/dL (0.2-1.3); BLOOD UREA NITROGEN 14 mg/dL (7-20); CALCIUM 7.5 mg/dL (8.4-10.2); GLUCOSE 88 mg/dL (75-110); POTASSIUM 3.7 mmol/L (3.6-5.0); TOTAL PROTEIN 5.4 g/dL (6.3-8.2); URINE AMPHETAMINES SCREEN NEGATIVE; URINE BARBITURATES SCREEN NEGATIVE; URINE BENZODIAZEPINES SCREEN NEGATIVE; URINE COCAINE SCREEN NEGATIVE; URINE MARIJUANA (THC) SCREEN UNCONFIRMED POSITIVE; URINE METHADONE SCREEN NEGATIVE; URINE PHENCYCLIDINE SCREEN NEGATIVE
[2018-07-07 02:49] LABS: ABSOLUTE RETICS # 0.054 10^6/uL (0.028-0.122)
[2018-07-07 03:09] LABS: CARBON DIOXIDE 22 mmol/L (22-30); CHLORIDE 116 mmol/L (98-107)
[2018-07-07 03:11] LABS: ANION GAP 3 (5-19)
[2018-07-07 03:51] VITALS: BP 112/60
--- NOTE | 2018-07-07 07:47 | EKG REPORT ---
SEVERITY:- NORMAL ECG - SINUS RHYTHM : Confirmed by: Stone Bedoya MD 07-Jul-2018 07:46:38
== END 2018-07-07 03:51 | disposition home or self-care (01) ==
LOC: ER 23:42
DX: R07.81 Pleurodynia (principal); R06.02 Shortness of breath; F17.210 Nicotine dependence, cigarettes, uncomplicated
CPT/HCPCS: 93005; 94640; 99284; 96374; 96375; 36415; 85025; 85045; 80053; 81001; 84484; 80307; 85379; 71045; 93010; J2930; J1885

== ENCOUNTER 2018-09-04 19:30 | Emergency (ER) | payer SELFPAY ==
[2018-09-04] MEDS ORDERED: ACETAMINOPHEN 325 MG TABLET PO ONE (20:27)
--- NOTE | 2018-09-04 20:42 | ER Document Report ---
ED Medical Screen (RME) - General Chief Complaint: Chest Pain Stated Complaint: CHEST PAIN Time Seen by Provider: 09/04/18 20:26 Notes: Patient is a 28-year-old female presents to the emergency department complaining of chest pain, lightheadedness, lower back pain. Patient states the pain started yesterday when she was laying down. Patient is denying any nausea, vomiting, diarrhea or dysuria. Patient states her last menstrual period was 07/27/2018 Past medical history: None Medications: None Allergies: None GENERAL: Alert, interacts well. No acute distress. ABDOMEN: Soft, Non-distended. Bowel sounds present in all 4 quadrants. Gener alized epigastric abdominal pain radiating to her left upper quadrant. EXTREMITIES: Moves all 4 extremities spontaneously. No edema, normal radial and dorsalis pedis pulses bilaterally. No cyanosis. BACK: no cervical, thoracic, lumbar midline tenderness. No saddle anesthesia, normal distal neurovascular exam. Right paraspinal lumbar pain noted. I have greeted and performed a rapid initial assessment of this patient. A comprehensive ED assessment and evaluation of the patient, analysis of test results and completion of the medical decision making process will be conducted by additional ED providers. TRAVEL OUTSIDE OF THE [place] IN LAST 30 DAYS: No - Related Data Allergies/Adverse Reactions: No Known Allergies Allergy (Verified 02/23/18 10:34) Past Medical History Pulmonary Medical History: Reports: Hx Asthma Renal/ Medical History: Denies: Hx Peritoneal Dialysis Past Surgical History: Reports: Hx Section - x2, 1 - Immunizations Immunizations up to date: Yes Hx Diphtheria, Pertussis, Tetanus Vaccination: Yes Physical Exam - Vital signs Vitals: Temp Pulse Resp BP Pulse Ox 98.3 F 68 20 115/61 99 09/04/18 20:18 09/04/18 20:18 09/04/18 20:18 09/04/18 20:18 09/04/18 20:18 Course - Vital Signs Vital signs: Temp Pulse Resp BP Pulse Ox 98.3 F 68 20 115/61 99 09/04/18 20:18 09/04/18 20:18 09/04/18 20:18 09/04/18 20:18 09/04/18 20:18
[2018-09-04] MEDS ORDERED: KETOROLAC TROMETHAMINE 60 MG/2 ML SDV IM ONE (21:10)
[2018-09-04] MEDS ORDERED: LORAZEPAM 1 MG TABLET PO ONE (21:10)
[2018-09-04] MEDS ORDERED: LIDOCAINE 5% (700 MG) TRANSDERMAL ADH..PATCH TP ONE (21:10)
[2018-09-04 21:17] LABS: ABSOLUTE EOSINOPHILS # (AUTO) 0.2 10^3/uL (0.0-0.6); ABSOLUTE LYMPHOCYTES (AUTO) 3.6 10^3/uL (0.5-4.7); ABSOLUTE MONOCYTES (AUTO) 0.8 10^3/uL (0.1-1.4); ABSOLUTE NEUT (AUTO) 5.6 10^3/uL (1.7-8.2); BASOPHILS % (AUTO) 0.4 % (0-2); EOSINOPHILS % (AUTO) 2.1 % (0-6); HEMATOCRIT 38.1 % (36.0-47.0); HEMOGLOBIN 12.9 g/dL (12.0-15.5); MEAN CORPUSCULAR HEMOGLOBIN 31.8 pg (27.0-33.4); MEAN CORPUSCULAR HGB CONC 33.8 g/dL (32.0-36.0); MEAN CORPUSCULAR VOLUME 94 fl (80-97); MONOCYTES % (AUTO) 7.7 % (3-13); PLATELET COUNT 240 10^3/uL (150-450); RED BLOOD COUNT 4.05 10^6/uL (3.72-5.28); RED CELL DISTRIBUTION WIDTH 13.5 % (11.5-14.0); SEGMENTED NEUTROPHILS % (AUTO) 54.8 % (42-78); TOTAL CELLS COUNTED % (AUTO) 100 %; WHITE BLOOD COUNT 10.2 10^3/uL (4.0-10.5)
[2018-09-04 21:28] LABS: APPEARANCE,URINE SLIGHTLY-CLOUDY; BILIRUBIN,URINE NEGATIVE (NEGATIVE); COLOR,URINE YELLOW; GLUCOSE, URINE NEGATIVE (NEGATIVE); KETONES,URINE TRACE mg/dL (NEGATIVE); LEUKOCYTE ESTERASE,URINE TRACE (NEGATIVE); NITRITE,URINE NEGATIVE (NEGATIVE); PROTEIN,URINE NEGATIVE (NEGATIVE); URINE SPECIFIC GRAVITY 1.035
[2018-09-04 21:33] LABS: ANION GAP 6 (5-19); BLOOD UREA NITROGEN 12 mg/dL (7-20); CALCIUM 8.9 mg/dL (8.4-10.2); CARBON DIOXIDE 26 mmol/L (22-30); CHLORIDE 107 mmol/L (98-107); GLUCOSE 73 mg/dL (75-110); POTASSIUM 4.1 mmol/L (3.6-5.0); SODIUM 139.2 mmol/L (137-145)
[2018-09-04] MEDS ORDERED: FAMOTIDINE 20 MG TABLET PO ONE (22:06)
--- NOTE | 2018-09-04 22:08 | ER Document Report ---
ED General - General Chief Complaint: Chest Pain Stated Complaint: CHEST PAIN Time Seen by Provider: 09/04/18 20:26 Notes: Patient is a 28-year-old female without chronic medical problems who presents with chest discomfort as well as nausea. Patient describes this as a burning, aching pain to her lower chest and epigastric region that has since resolved since receiving treatment here in the emergency department. States this started approximately 30-40 minutes after eating spicy chicken wings. Nothing was noted to worsen the symptoms when present. Has had similar symptoms many times in the past particular when she was . Patient denies any focal abdominal pain, did not vomit. No shortness of breath or pleuritic pain. No history of DVT or pulmonary embolus. Has not seen her primary care physician regarding today's concerns. Has not had fever or constitutional symptoms. No abdominal surgical history. TRAVEL OUTSIDE OF THE [place] IN LAST 30 DAYS: No - Related Data Allergies/Adverse Reactions: No Known Allergies Allergy (Verified 02/23/18 10:34) Past Medical History - General Information source: Patient - Social History Smoking Status: Never Smoker Frequency of alcohol use: None Drug Abuse: None Lives with: Spouse/Significant other Family History: Reviewed & Not Pertinent Patient has suicidal ideation: No Patient has homicidal ideation: No Pulmonary Medical History: Reports: Hx Asthma Renal/ Medical History: Denies: Hx Peritoneal Dialysis Past Surgical History: Reports: Hx Section - x2, 1 - Immunizations Immunizations up to date: Yes Hx Diphtheria, Pertussis, Tetanus Vaccination: Yes Review of Systems - Review of Systems Notes: Constitutional: Negative for fever. HENT: Negative for sore throat. Eyes: Negative for visual changes. Cardiovascular: Positive for chest pain. Respiratory: Negative for shortness of breath. Gastrointestinal: Negative for abdominal pain, positive for nausea Genitourinary: Negative for dysuria. Musculoskeletal: Negative for back pain. Skin: Negative for rash. Neurological: Negative for headaches, weakness or numbness. 10 point ROS negative except as marked above and in HPI. Physical Exam - Vital signs Vitals: Temp Pulse Resp BP Pulse Ox 98.3 F 68 20 115/61 99 09/04/18 20:18 09/04/18 20:18 09/04/18 20:18 09/04/18 20:18 09/04/18 20:18 Interpretation: Normal Notes: PHYSICAL EXAMINATION: GENERAL: Well-appearing, well-nourished and in no acute distress. HEAD: Atraumatic, normocephalic. EYES: Pupils equal round and reactive to light, extraocular movements intact, sclera anicteric, conjunctiva are normal. ENT: nares patent, oropharynx clear without exudates. Moist mucous membranes. NECK: Normal range of motion, supple without lymphadenopathy LUNGS: Breath sounds clear to auscultation bilaterally and equal. No wheezes rales or rhonchi. HEART: Regular rate and rhythm without murmurs ABDOMEN: Soft, nontender, normoactive bowel sounds. No guarding, no rebound. No masses appreciated. EXTREMITIES: Normal range of motion, no pitting or edema. No cyanosis. NEUROLOGICAL: No focal neurological deficits. Moves all extremities spontaneously and on command. PSYCH: Normal mood, normal affect. SKIN: Warm, Dry, normal turgor, no rashes or lesions noted. Course - Re-evaluation Re-evalutation: 09/04/18 22:07 Patient presents with mild chest discomfort with burping which started after eating spicy chicken. Patient has had similar symptoms in the past with unclear etiology. Has had multiple ER visits for the same. Patient has no focal abdominal tenderness on examination. She denies any focal abdominal pain at any time. Based on history and exam, I do not suspect ACS, pulmonary embolus, SBO, mesenteric ischemia, acute pancreatitis, biliary pathology, or an abdominal aortic dissection. Patient is completely symptomatic at the time of my evaluation. She does have a positive test was informed of this result. At this time will discharge with return precautions and follow-up recommendations. Verbal discharge instructions given a the bedside and opportunity for questions given. Medication warnings reviewed. Patient is in agreement with this plan and has verbalized understanding of return precautions and the need for primary care follow-up in the next 24-72 hours. - Vital Signs Vital signs: Temp Pulse Resp BP Pulse Ox 98 F 62 18 120/62 98 09/04/18 22:36 09/04/18 22:36 09/04/18 22:36 09/04/18 22:36 09/04/18 22:36 - Laboratory Result Diagrams: 09/04/18 21:02 09/04/18 21:08 Laboratory results interpreted by me: 09/04/18 09/04/18 19:46 21:08 Glucose 73 L Urine Ketones TRACE H Urine Urobilinogen 4.0 H Ur Leukocyte Esterase TRACE H Urine Ascorbic Acid 40 H Urine HCG, Qual POSITIVE H - Diagnostic Test Radiology reviewed: Image reviewed, Reports reviewed Radiology results interpreted by me: 09/04/18 22:08 Chest x-ray: No acute infiltrate or pneumothorax Discharge - Discharge Clinical Impression: Chest discomfort, Positive test Gastroesophageal reflux Qualifiers: Esophagitis presence: esophagitis presence not specified Qualified Code(s): K21.9 - Gastro-esophageal reflux disease without esophagitis Condition: Good Disposition: HOME, SELF-CARE Additional Instructions: Your symptoms appear to be most consistent with stomach or upper intestinal irritation. Please begin taking famotidine 40 mg in the morning and 40 mg at night. Please return to emergency department immediately if you have worsening of your pain, shortness of breath, vomiting, become unable to exert yourself due to pain or difficulty breathing, you pass out, or have any pain that radiates into your arms, jaw, or back. Please also return if you have any additional symptoms that are concerning to you. As we have discussed, the most important thing is lifestyle changes. You need to avoid smoking, sodas, tea, coffee, alcohol, spicy foods, and acidic foods such as citrus fruits, tomato based products, berries, and most fruit juices. As we discussed you tested positive for today. Please established care. Prescriptions: Famotidine 40 mg PO BID #60 tablet
[2018-09-04 22:37] VITALS: BP 120/62
--- NOTE | 2018-09-05 08:41 | EKG REPORT ---
SEVERITY:- BORDERLINE ECG - SINUS ARRHYTHMIA, RATE 55-79 BORDERLINE T ABNORMALITIES, ANTERIOR LEADS : Confirmed by: Codi St MD 05-Sep-2018 08:41:12
== END 2018-09-04 22:35 | disposition home or self-care (01) ==
LOC: ER 19:30
DX: K21.9 Gastro-esophageal reflux disease without esophagitis (principal); Z32.01 Encounter for pregnancy test, result positive; R07.9 Chest pain, unspecified; R14.2 Eructation; R10.13 Epigastric pain; R11.0 Nausea; J45.909 Unspecified asthma, uncomplicated
CPT/HCPCS: 93005; 99284; 96372; 36415; 85025; 81025; 80048; 81001; 84484; 93010; J1885

== ENCOUNTER 2018-09-13 06:35 | Emergency (ER) | payer SELFPAY ==
[2018-09-13] MEDS ORDERED: NORMAL SALINE 1000 ML 1,000 ML IV ONE (07:15)
[2018-09-13] MEDS ORDERED: METOCLOPRAMIDE HCL INJ/PF 10 MG/2 ML SDV IV ONE (07:16)
[2018-09-13] MEDS ORDERED: DIPHENHYDRAMINE HCL 50 MG/ML VIAL IV ONE (07:16)
[2018-09-13] MEDS ORDERED: MORPHINE SULFATE 10 MG/ML INJ IV ONE ×2 (07:16→10:35)
[2018-09-13 08:04] LABS: ABSOLUTE EOSINOPHILS # (AUTO) 0.2 10^3/uL (0.0-0.6); ABSOLUTE LYMPHOCYTES (AUTO) 1.9 10^3/uL (0.5-4.7); ABSOLUTE MONOCYTES (AUTO) 0.5 10^3/uL (0.1-1.4); ABSOLUTE NEUT (AUTO) 7.5 10^3/uL (1.7-8.2); BASOPHILS % (AUTO) 0.5 % (0-2); EOSINOPHILS % (AUTO) 1.6 % (0-6); HEMATOCRIT 41.9 % (36.0-47.0); HEMOGLOBIN 14.3 g/dL (12.0-15.5); LYMPHOCYTES % (AUTO) 18.7 % (13-45); MEAN CORPUSCULAR HGB CONC 34.2 g/dL (32.0-36.0); MEAN CORPUSCULAR VOLUME 94 fl (80-97); MONOCYTES % (AUTO) 5.1 % (3-13); PLATELET COUNT 252 10^3/uL (150-450); RED BLOOD COUNT 4.48 10^6/uL (3.72-5.28); RED CELL DISTRIBUTION WIDTH 13.3 % (11.5-14.0); SEGMENTED NEUTROPHILS % (AUTO) 74.1 % (42-78); TOTAL CELLS COUNTED % (AUTO) 100 %; WHITE BLOOD COUNT 10.1 10^3/uL (4.0-10.5)
[2018-09-13 08:24] LABS: ALANINE AMINOTRANSFERASE 18 U/L (9-52); ALBUMIN 4.8 g/dL (3.5-5.0); ALKALINE PHOSPHATASE 71 U/L (38-126); ANION GAP 11 (5-19); ASPARTATE AMINO TRANSFERASE 23 U/L (14-36); BILIRUBIN,DIRECT 0.2 mg/dL (0.0-0.4); BILIRUBIN,TOTAL 0.7 mg/dL (0.2-1.3); BLOOD UREA NITROGEN 10 mg/dL (7-20); CALCIUM 9.6 mg/dL (8.4-10.2); CARBON DIOXIDE 24 mmol/L (22-30); CHLORIDE 104 mmol/L (98-107); GLUCOSE 90 mg/dL (75-110); LIPASE 67.1 U/L (23-300); POTASSIUM 4.8 mmol/L (3.6-5.0); SODIUM 138.5 mmol/L (137-145); TOTAL PROTEIN 7.7 g/dL (6.3-8.2)
[2018-09-13 08:27] LABS: APPEARANCE,URINE SLIGHTLY-CLOUDY; BILIRUBIN,URINE NEGATIVE (NEGATIVE); COLOR,URINE YELLOW; GLUCOSE, URINE NEGATIVE (NEGATIVE); KETONES,URINE NEGATIVE (NEGATIVE); LEUKOCYTE ESTERASE,URINE NEGATIVE (NEGATIVE); NITRITE,URINE NEGATIVE (NEGATIVE); PROTEIN,URINE NEGATIVE (NEGATIVE); URINE SPECIFIC GRAVITY 1.023; UROBILINOGEN,URINE NEGATIVE mg/dL (<2.0)
--- NOTE | 2018-09-13 08:28 | ER Document Report ---
ED General - General Chief Complaint: Abdominal Pain Stated Complaint: LOWER ABDOMINAL PAIN Time Seen by Provider: 09/13/18 07:07 Primary Care Provider: JOANA NUNO MD [ACTIVE STAFF] - Follow up as needed TRAVEL OUTSIDE OF THE [place] IN LAST 30 DAYS: No - HPI Notes: Patient is a at approximately 6 weeks gestation who comes to the emergency department for evaluation of abdominal pain. She said it was sudden in onset early this morning. She did have one episode of nonbloody, nonbilious emesis. She states the pain starts in her lower abdomen and radiates up into her chest. She states she has never had anything like this in the past. She states she did have a very small amount of brown blood upon wiping 2 days ago, but is no continued vaginal bleeding. Normal urination. Normal bowel movement - Related Data Allergies/Adverse Reactions: No Known Allergies Allergy (Verified 02/23/18 10:34) Past Medical History - General Information source: Patient, Friend - Social History Smoking Status: Current Every Day Smoker Family History: Reviewed & Not Pertinent Patient has suicidal ideation: No Patient has homicidal ideation: No Pulmonary Medical History: Reports: Hx Asthma Renal/ Medical History: Denies: Hx Peritoneal Dialysis Past Surgical History: Reports: Hx Section - x2, 1 - Immunizations Immunizations up to date: Yes Hx Diphtheria, Pertussis, Tetanus Vaccination: Yes Review of Systems - Review of Systems Constitutional: No symptoms reported EENT: No symptoms reported Cardiovascular: Chest pain Respiratory: No symptoms reported Gastrointestinal: Abdominal pain, Nausea, Vomiting Female Genitourinary: Musculoskeletal: No symptoms reported Skin: No symptoms reported Neurological/Psychological: No symptoms reported Physical Exam - Vital signs Vitals: Temp Pulse Resp BP Pulse Ox 98.4 F 80 26 H 119/70 98 09/13/18 06:38 09/13/18 06:38 09/13/18 06:38 09/13/18 06:38 09/13/18 06:38 - Notes Notes: Vital signs reviewed, please refer to chart. Patient is normocephalic, atraumatic. Pupils equal round, reactive to light. Neck is supple without meningismus. Heart is regular rate and rhythm. Lungs are clear to auscultation bilaterally. Abdomen is soft, generalized tenderness with more focal tenderness in the epigastric region. No rebound or guarding. Normoactive bowel sounds.. Extremities without cyanosis, clubbing, edema. No posterior calf tenderness. Peripheral pulses are equal. Skin is warm and dry. Patient is awake, alert, neurological exam is nonfocal. Course - Re-evaluation Re-evalutation: 09/13/18 08:41 Patient presents to the emergency department for evaluation of abdominal pain with radiation into her chest. She has had a positive beta but has not had confirmed intrauterine . Laboratory investigations and imaging were ordered, medicines given for symptoms. Stable. 09/13/18 10:36 Laboratory investigations reviewed. Patient's beta-hCG has been increased, but certainly not at the rate which would be expected. Ultrasound did reveal an irregular gestational sac in the uterus. Certainly I cannot rule out a heterotopic at this time, although it would be extremely rare. My suspicion is that this is an early AB. I explained to the patient, however, that she would need further laboratory medications and imaging for follow-up. She voiced understanding to this. We will refer her on to OB, order placed for beta-hCG in 48 hours. She is to return to the ED with worsening or new concerning symptoms of any sort. - Vital Signs Vital signs: Temp Pulse Resp BP Pulse Ox 98.4 F 80 16 106/62 100 09/13/18 06:38 09/13/18 06:38 09/13/18 08:00 09/13/18 08:00 09/13/18 08:00 - Laboratory Result Diagrams: 09/13/18 07:40 09/13/18 07:40 Laboratory results interpreted by me: 09/13/18 09/13/18 07:34 07:40 Beta HCG, Quant 87730.00 H Urine Ascorbic Acid 40 H Discharge - Discharge Clinical Impression: Pelvic pain affecting in first trimester, antepartum Condition: Stable Disposition: HOME, SELF-CARE Instructions: Abdominal Pain ([facility]) Additional Instructions: You need blood work to recheck your beta hCG on Friday. He will also need an ultrasound to confirm that you do not have ectopic . Follow-up with on-call gynecology, listed on discharge paperwork. Follow complete pelvic rest instructions as discussed. Return to the emergency department with worsening or new concerning symptoms of any sort. Forms: Follow-Up Laboratory Testing Referrals: JOANA NUNO MD [ACTIVE STAFF] - Follow up as needed
--- NOTE | 2018-09-13 09:41 | RADIOLOGY REPORT (SQ) ---
EXAM DESCRIPTION: U/S OB TRANSVAG W/DOPPLER COMPLETED DATE/TIME: 09/13/2018 9:19 am REASON FOR STUDY: pelvic pain, COMPARISON: None. TECHNIQUE: Transvaginal static and realtime grayscale images acquired of the pelvis. Additional amaury cted spectral and color Doppler images recorded. All images stored on PACs. CLINICAL AGE: 5 weeks 5 days bHC,000 LIMITATIONS: None. FINDINGS: UTERUS: No masses. No anomalies. GESTATIONAL SAC: Abnormal shape. Sac diameter 1.7 cm corresponding to 6 weeks 4 days. YOLK SAC: Yes. POLE: None present. RIGHT ADNEXA: Normal ovary with normal vascular flow. No adnexal free fluid. No adnexal masses. LEFT ADNEXA: Normal ovary with normal vascular flow. No adnexal free fluid. No adnexal masses. FREE FLUID: None. OTHER: No other significant finding. IMPRESSION: POSSIBLE EARLY INTRAUTERINE . BHCG LEVEL APPROPRIATE FOR ENDOMETRIAL FINDINGS. CONSIDER F/U BHCG AND/OR ULTRASOUND FOR VERIFICATION AND TO EXCLUDE ECTOPIC . Trimester of : First - 0 to 13 weeks. TECHNICAL DOCUMENTATION: JOB ID: [id number] [employer]- All Rights Reserved Reading location - IP/workstation name: [email or web address]
[2018-09-13 11:09] VITALS: BP 101/44
== END 2018-09-13 11:09 | disposition home or self-care (01) ==
LOC: ER 06:35
DX: O26.891 Other specified pregnancy related conditions, first trimester (principal); R10.2 Pelvic and perineal pain; R10.817 Generalized abdominal tenderness; R07.9 Chest pain, unspecified; O21.9 Vomiting of pregnancy, unspecified; O99.511 Diseases of the respiratory system complicating pregnancy, first trimester; J45.909 Unspecified asthma, uncomplicated; Z3A.00 Weeks of gestation of pregnancy not specified
CPT/HCPCS: 96376; 99284; 96361; 96374; 96375; 36415; 84702; 83690; 85025; 80053; 81001; 76817; 93976; J1200; J2270; J7030

== ENCOUNTER 2018-09-22 19:44 | Emergency (ER) | payer SELFPAY ==
[2018-09-22 19:57] VITALS: BP 111/60
[2018-09-22 20:38] LABS: AMORPHOUS SEDIMENT,URINE TRACE /HPF; APPEARANCE,URINE CLOUDY; BILIRUBIN,URINE NEGATIVE (NEGATIVE); COLOR,URINE YELLOW; GLUCOSE, URINE NEGATIVE (NEGATIVE); KETONES,URINE NEGATIVE (NEGATIVE); LEUKOCYTE ESTERASE,URINE NEGATIVE (NEGATIVE); NITRITE,URINE NEGATIVE (NEGATIVE); PROTEIN,URINE NEGATIVE (NEGATIVE); URINE SPECIFIC GRAVITY 1.026
== END 2018-09-22 21:00 | disposition left against medical advice (07) ==
LOC: ER 19:44
DX: Z53.21 Procedure and treatment not carried out due to patient leaving prior to being seen by health care provider (principal)
CPT/HCPCS: 81001

== ENCOUNTER 2018-09-27 14:15 | Observation (INO) | payer SELFPAY ==
--- NOTE | 2018-09-27 14:42 | ER Document Report ---
ED Medical Screen (RME) - General Chief Complaint: Abdominal Pain Stated Complaint: ABDOMINAL PAIN Time Seen by Provider: 09/27/18 14:40 Mode of Arrival: Ambulatory Information source: Patient, Relative TRAVEL OUTSIDE OF THE [place] IN LAST 30 DAYS: No - HPI Patient complains to provider of: ; pelvic pain Onset: Other - Pt is approx 9 weeks with recurrent pelvic pain and some spotting - Related Data Allergies/Adverse Reactions: No Known Allergies Allergy (Verified 09/27/18 14:35) Past Medical History Pulmonary Medical History: Reports: Hx Asthma Renal/ Medical History: Denies: Hx Peritoneal Dialysis Past Surgical History: Reports: Hx Section - x2, 1 - Immunizations Immunizations up to date: Yes Hx Diphtheria, Pertussis, Tetanus Vaccination: Yes Physical Exam - Vital signs Vitals: Temp Pulse Resp BP Pulse Ox 98.8 F 66 18 130/55 H 100 09/27/18 14:27 09/27/18 14:27 09/27/18 14:27 09/27/18 14:27 09/27/18 14:27 Course - Vital Signs Vital signs: Temp Pulse Resp BP Pulse Ox 98.8 F 66 18 130/55 H 100 09/27/18 14:27 09/27/18 14:27 09/27/18 14:27 09/27/18 14:27 09/27/18 14:27
[2018-09-27 15:15] LABS: ABSOLUTE EOSINOPHILS # (AUTO) 0.1 10^3/uL (0.0-0.6); ABSOLUTE LYMPHOCYTES (AUTO) 1.9 10^3/uL (0.5-4.7); ABSOLUTE MONOCYTES (AUTO) 0.6 10^3/uL (0.1-1.4); ABSOLUTE NEUT (AUTO) 6.7 10^3/uL (1.7-8.2); BASOPHILS % (AUTO) 0.2 % (0-2); EOSINOPHILS % (AUTO) 0.8 % (0-6); HEMATOCRIT 37.6 % (36.0-47.0); HEMOGLOBIN 12.9 g/dL (12.0-15.5); LYMPHOCYTES % (AUTO) 20.7 % (13-45); MEAN CORPUSCULAR HGB CONC 34.3 g/dL (32.0-36.0); MEAN CORPUSCULAR VOLUME 93 fl (80-97); MONOCYTES % (AUTO) 6.6 % (3-13); PLATELET COUNT 223 10^3/uL (150-450); RED BLOOD COUNT 4.04 10^6/uL (3.72-5.28); RED CELL DISTRIBUTION WIDTH 13.6 % (11.5-14.0); SEGMENTED NEUTROPHILS % (AUTO) 71.7 % (42-78); TOTAL CELLS COUNTED % (AUTO) 100 %; WHITE BLOOD COUNT 9.3 10^3/uL (4.0-10.5)
[2018-09-27 15:33] LABS: ALANINE AMINOTRANSFERASE 17 U/L (9-52); ALBUMIN 4.3 g/dL (3.5-5.0); ALKALINE PHOSPHATASE 51 U/L (38-126); ANION GAP 10 (5-19); ASPARTATE AMINO TRANSFERASE 18 U/L (14-36); BILIRUBIN,TOTAL 0.6 mg/dL (0.2-1.3); BLOOD UREA NITROGEN 8 mg/dL (7-20); CALCIUM 9.6 mg/dL (8.4-10.2); CARBON DIOXIDE 24 mmol/L (22-30); CHLORIDE 102 mmol/L (98-107); GLUCOSE 75 mg/dL (75-110); POTASSIUM 3.6 mmol/L (3.6-5.0); TOTAL PROTEIN 6.8 g/dL (6.3-8.2)
[2018-09-27] MEDS ORDERED: ONDANSETRON 4 MG TAB.RAPDIS PO ONE (15:45)
[2018-09-27] MEDS ORDERED: ACETAMINOPHEN 325 MG TABLET PO ONE (15:46)
--- NOTE | 2018-09-27 15:47 | ER Document Report ---
ED General - General Chief Complaint: Abdominal Pain Stated Complaint: ABDOMINAL PAIN Time Seen by Provider: 09/27/18 14:40 Mode of Arrival: Ambulatory Information source: Patient Notes: 28-year-old female at approximately 8 weeks gestation per last ultrasound which was performed on September 13, 2018 presents with complaint of pelvic pain, low back pain, rectal pain and mild vaginal bleeding. Patient states symptoms started 2 weeks prior to arrival with worsening of pain today. Patient has taken Tylenol without relief. Patient also has associated nausea, vomiting and dizziness. Patient has not yet seen [facility] but does have an upcoming appointment tomorrow September 28. She does not report any other complications with her previous pregnancies. She denies dysuria, hematuria. TRAVEL OUTSIDE OF THE [place] IN LAST 30 DAYS: No - HPI Onset: Other Onset/Duration: Persistent, Worse Quality of pain: Cramping Severity: Moderate Associated symptoms: Nausea, Vomiting, Other - Dizziness, abdominal pain, vaginal bleeding Exacerbated by: Sitting Relieved by: Denies Similar symptoms previously: Yes Recently seen / treated by doctor: Yes - Related Data Allergies/Adverse Reactions: No Known Allergies Allergy (Verified 09/27/18 14:35) Past Medical History - General Information source: Patient, Relative - Social History Smoking Status: Former Smoker Frequency of alcohol use: None Drug Abuse: None Lives with: Family Family History: Reviewed & Not Pertinent Patient has suicidal ideation: No Patient has homicidal ideation: No Pulmonary Medical History: Reports: Hx Asthma Renal/ Medical History: Denies: Hx Peritoneal Dialysis Past Surgical History: Reports: Hx Section - x2, 1 - Immunizations Immunizations up to date: Yes Hx Diphtheria, Pertussis, Tetanus Vaccination: Yes Review of Systems - Review of Systems Notes: REVIEW OF SYSTEMS: CONSTITUTIONAL : Denies fever, chills, or sweats. Denies recent illness. Denies weight loss, recent hospitalizations. EENT: Denies visual changes, eye pain. Denies sore throat, oral lesions, difficulty swallowing. CARDIOVASCULAR: Denies chest pain. Denies palpitations. Denies lower extremity edema. RESPIRATORY: Denies cough. Denies shortness of breath, wheezing. GASTROINTESTINAL: Denies abdominal distention. Denies nausea, vomiting, or diarrhea. Denies blood in vomitus, stools, or per rectum. Denies black, tarry stools. Denies constipation. GENITOURINARY: Denies difficulty urinating, painful urination, frequency, blood in urine, or vaginal discharge. MUSCULOSKELETAL: Denies neck pain or stiffness. Denies joint pain or swelling. SKIN: Denies rash, lesions or sores. HEMATOLOGIC : Denies easy bruising or bleeding. LYMPHATIC: Denies swollen glands. NEUROLOGICAL: Denies confusion or altered mental status. Denies loss of consciousness. Denies dizziness or lightheadedness. Denies headache. Denies weakness or paralysis. Denies problems difficulty with ambulation, slurred speech. Denies sensory loss, numbness, or tingling. Denies seizures. PSYCHIATRIC: Denies anxiety or stress. Denies depression, suicidal ideation, or homicidal ideation. Denies visual or auditory hallucinations. Physical Exam - Vital signs Vitals: Temp Pulse Resp BP Pulse Ox 98.8 F 66 18 130/55 H 100 09/27/18 14:27 09/27/18 14:27 09/27/18 14:27 09/27/18 14:27 09/27/18 14:27 - Notes Notes: PHYSICAL EXAMINATION: GENERAL: Well-appearing, well-nourished and in no acute distress. HEAD: Atraumatic, normocephalic. EYES: Pupils equal round and reactive to light, extraocular movements intact, conjunctiva are normal. ENT: Nares patent, oropharynx clear without exudates. Moist mucous membranes. NECK: Normal range of motion, supple without lymphadenopathy LUNGS: Breath sounds clear to auscultation bilaterally and equal. No wheezes rales or rhonchi. HEART: Regular rate and rhythm without murmurs ABDOMEN: Soft, nontender, nondistended abdomen. No guarding, no rebound. No masses appreciated. Female : Pelvic exam; External genitalia unremarkable. Speculum exam with discharge/no discharge. Vaginal wall unremarkable. Os closed. No cervical motion tenderness. No adnexal tenderness or masses appreciated. Swabs obtained for gonorrhea, chlamydia and wet prep. Musculoskeletal: Normal range of motion, no pitting or edema. No cyanosis. NEUROLOGICAL: Cranial nerves grossly intact. Normal speech, normal gait. Normal sensory, motor exams PSYCH: Normal mood, normal affect. SKIN: Warm, Dry, normal turgor, no rashes or lesions noted. Course - Re-evaluation Re-evalutation: 09/27/18 22:11 Laboratory 03/05/0809/27/18 09/27/18 14:45 14:45 14:45 WBC 9.3 RBC 4.04 Hgb 12.9 Hct 37.6 MCV 93 MCH 32.0 MCHC 34.3 RDW 13.6 Plt Count 223 Seg Neutrophils % 71.7 Lymphocytes % 20.7 Monocytes % 6.6 Eosinophils % 0.8 Basophils % 0.2 Absolute Neutrophils 6.7 Absolute Lymphocytes 1.9 Absolute Monocytes 0.6 Absolute Eosinophils 0.1 Absolute Basophils 0.0 Sodium 136.0 L Potassium 3.6 Chloride 102 Carbon Dioxide 24 Anion Gap 10 BUN 8 Creatinine 0.55 Est GFR ( Amer) > 60 Est GFR (Non-Af Amer) > 60 Glucose 75 Calcium 9.6 Total Bilirubin 0.6 Direct Bilirubin 0.0 Neonat Total Bilirubin Not Reportable Neonat Direct Bilirubin Not Reportable Neonat Indirect Bili Not Reportable AST 18 ALT 17 Alkaline Phosphatase 51 Total Protein 6.8 Albumin 4.3 Beta HCG, Quant 238276.00 H Total Beta HCG POSITIVE Urine Color Urine Appearance Urine pH Ur Specific [place] Urine Protein Urine Glucose (UA) Urine Ketones Urine Blood Urine Nitrite Urine Bilirubin Urine Urobilinogen Ur Leukocyte Esterase Urine WBC (Auto) Urine RBC (Auto) Squamous Epi Cells Auto Urine Mucus (Auto) Urine Ascorbic Acid Epi Cells (Wet Prep) Bacteria (Wet Prep) Trichomonas (Wet Prep) Vaginal WBC Vaginal RBC Vaginal Yeast Chlamydia DNA (PCR) N.gonorrhoeae DNA (PCR) Blood Type AB POSITIVE Rhogam Indicated RHOGAM NOT INDICATED 09/27/18 09/27/18 09/27/18 14:45 16:24 16:24 WBC RBC Hgb Hct MCV MCH MCHC RDW Plt Count Seg Neutrophils % Lymphocytes % Monocytes % Eosinophils % Basophils % Absolute Neutrophils Absolute Lymphocytes Absolute Monocytes Absolute Eosinophils Absolute Basophils Sodium Potassium Chloride Carbon Dioxide Anion Gap BUN Creatinine Est GFR ( Amer) Est GFR (Non-Af Amer) Glucose Calcium Total Bilirubin Direct Bilirubin Neonat Total Bilirubin Neonat Direct Bilirubin Neonat Indirect Bili AST ALT Alkaline Phosphatase Total Protein Albumin Beta HCG, Quant Total Beta HCG Urine Color YELLOW Urine Appearance SLIGHTLY-CLOUDY Urine pH 5.0 Ur Specific [place] 1.024 Urine Protein NEGATIVE Urine Glucose (UA) NEGATIVE Urine Ketones NEGATIVE Urine Blood NEGATIVE Urine Nitrite NEGATIVE Urine Bilirubin NEGATIVE Urine Urobilinogen NEGATIVE Ur Leukocyte Esterase TRACE H Urine WBC (Auto) 3 Urine RBC (Auto) 1 Squamous Epi Cells Auto 5 Urine Mucus (Auto) MANY Urine Ascorbic Acid 40 H Epi Cells (Wet Prep) 3+ EPITHELIALS SEEN Bacteria (Wet Prep) 3+ BACTERIA SEEN Trichomonas (Wet Prep) NO TRICHOMONAS SEEN Vaginal WBC 1+ WBCS SEEN Vaginal RBC RARE RBCS SEEN Vaginal Yeast NO YEAST SEEN Chlamydia DNA (PCR) NOT DETECTED N.gonorrhoeae DNA (PCR) NOT DETECTED Blood Type Rhogam Indicated Transvaginal US 09/27/18 14:40 IMPRESSION: demise. Trimester of : First - 0 to 13 weeks. Temp Pulse Resp BP Pulse Ox 97.5 F 61 16 119/74 100 09/27/18 21:30 09/27/18 21:30 09/27/18 21:30 09/27/18 21:30 09/27/18 21:30 28-year-old female approximately 8 weeks gestation presents with low back pain, lower abdominal pain and vaginal bleeding that started 2 weeks prior to arrival. Vital signs reviewed and within normal limits. Patient does not appear toxic but she does appear to be uncomfortable. Previous medical records and nursing notes reviewed. Ultrasound performed on September 13 showed an abnormal gestational sac. At that time her beta quant was 60,000. Today ultrasound is read as a demise with no change in size or shape of the gestational sac but her quant is more than tripled. There is also a 3 cm hypoechoic area around the left ovary. Patient is in significant pain and was initially administered IM Dilaudid. She is pacing around the room, holding her stomach, bent over the bed. I did consult Dr. Talbot from [facility] and asked her to review the patient's labs and imaging as I am concerned that with her beta hCG increasing and and clear solid structure of the left ovary that may be an ectopic . OB did review the films, labs and evaluated the patient. They have agreed to admit the patient at this time for observation. Patient and were informed and are agreeable with admission. 09/27/18 22:14 - Vital Signs Vital signs: Temp Pulse Resp BP Pulse Ox 97.5 F 61 16 119/74 100 09/27/18 21:30 09/27/18 21:30 09/27/18 21:30 09/27/18 21:30 09/27/18 21:30 - Laboratory Result Diagrams: 09/27/18 14:45 09/27/18 14:45 Laboratory results interpreted by me: 09/27/18 09/27/18 14:45 14:45 Sodium 136.0 L Beta HCG, Quant 288046.00 H Ur Leukocyte Esterase TRACE H Urine Ascorbic Acid 40 H - Diagnostic Test Radiology reviewed: Image reviewed, Reports reviewed Discharge - Discharge Clinical Impression: demise, Concern for ectopic , Pelvic pain during Condition: Good Disposition: ADMITTED INPATIENT Admitting Provider: [facility] Admitted: Post
--- NOTE | 2018-09-27 15:57 | RADIOLOGY REPORT (SQ) ---
EXAM DESCRIPTION: U/S OB TRANSVAG W/DOPPLER COMPLETED DATE/TIME: 09/27/2018 3:33 pm REASON FOR STUDY: ; bleeding COMPARISON: 09/13/2018 TECHNIQUE: Transvaginal static and realtime grayscale images acquired of the pelvis. Additional amaury cted spectral and color Doppler images recorded. All images stored on PACs. bHCG: Not available. CLINICAL DATES: 7 weeks 5 days. LIMITATIONS: None. FINDINGS: Gestational sac is similar in size to the prior. A normal yolk sac is not identified. Ma rginal linear echogenic structure without evidence of cardiac activity. Within the left ovary there is a hypoechoic central area within 3 cm solid component. No increased p eripheral flow to suggest ectopic. Normal right ovary. IMPRESSION: demise. Trimester of : First - 0 to 13 weeks. TECHNICAL DOCUMENTATION: JOB ID: [id number] [employer]- All Rights Reserved rev-12/05 Reading location - IP/workstation name: [email or web address]
[2018-09-27 16:21] LABS: APPEARANCE,URINE SLIGHTLY-CLOUDY; BILIRUBIN,URINE NEGATIVE (NEGATIVE); COLOR,URINE YELLOW; GLUCOSE, URINE NEGATIVE (NEGATIVE); KETONES,URINE NEGATIVE (NEGATIVE); LEUKOCYTE ESTERASE,URINE TRACE (NEGATIVE); NITRITE,URINE NEGATIVE (NEGATIVE); PROTEIN,URINE NEGATIVE (NEGATIVE); URINE SPECIFIC GRAVITY 1.024; UROBILINOGEN,URINE NEGATIVE mg/dL (<2.0)
[2018-09-27] MEDS ORDERED: HYDROMORPHONE HCL INJ/PF 2 MG/ML AMPULE IM ONE (16:24)
[2018-09-27] MEDS ORDERED: KETOROLAC TROMETHAMINE 60 MG/2 ML SDV IM ONE (16:26)
[2018-09-27 16:43] LABS: BACTERIA (WET MOUNT) 3+ BACTERIA SEEN; EPITHELIALS (WET MOUNT) 3+ EPITHELIALS SEEN; RBCS (WET MOUNT) RARE RBCS SEEN; T.VAGINALIS (WET MOUNT) NO TRICHOMONAS SEEN; WBCS (WET MOUNT) 1+ WBCS SEEN; YEAST (WET MOUNT) NO YEAST SEEN
[2018-09-27] MEDS ORDERED: HYDROMORPHONE HCL INJ/PF 2 MG/ML AMPULE IV ONE (18:09)
[2018-09-27] MEDS ORDERED: ONDANSETRON HCL INJ/PF 4 MG/2 ML SDV IV ONE (18:10)
[2018-09-27 18:13] LABS: CHLAM PCR NOT DETECTED (NOT DETECT); GON PCR NOT DETECTED (NOT DETECT)
--- NOTE | 2018-09-27 23:35 | PDOC H&P ---
History of Present Illness Admission Date/PCP: 09/27/18 18:22 Patient complains of: Lower abdominal pain which started towards the end of August History of Present Illness: REGGIE ADAM is a 28 year old with an intrauterine at approximately 7-6/7 weeks according to an ultrasound performed on September 27. This patient presented to the emergency department on September 13 complaining of lower abdominal pain. Patient was given a diagnosis of at that time. Patient stated that her last menstrual cycle was on August 01. The ultrasound showed an intrauterine with a gestational sac measuring approximately 6 weeks. Patient stated that she continued to have pain and was sent home. Her quantitative beta-hCG was approximately 60,000 at that visit. She return to the emergency department on September 27 and her quantitative beta-hCG dalila to 140,000. Ultrasound showed a gestational sac without a fetus measuring approximately 7- 6/7 weeks. However on ultrasound, a semisolid rupture was seen in the left ovary. According to radiology, it was NOT suspicious for an ectopic . There was no blood flow supporting the structure. There is no hemoperitoneum. She continues to have lower abdominal pain. Patient did have some nausea upon arrival. Patient denies fever/chills. Past Medical History LMP: August 01 Gynecological Infection: No 1 Delivery: Spontaneous Vaginal Delivery 2 Delivery: : Low Cervical, Transverse 3 Delivery: : Low Cervical, Transverse 5 Year: 2,019 Pulmonary Medical History: Reports: Asthma Past Surgical History Past Surgical History: C/S x 2; Elective termination Past Surgical History: Reports: Section - x2, 1 Social History Lives with: Family Smoking Status: Former Smoker - Advance Directive Resuscitation Status: Full Code Family History Family History: Reviewed & Not Pertinent Parental Family History Reviewed: Yes Children Family History Reviewed: NA Sibling(s) Family History Reviewed.: NA Medication/Allergy Home Medications: Albuterol Sulfate [Ventolin Hfa 8 gm Mdi (1 Mdi/ER Disp)] 2 puff IH ASDIR PRN 5 Days #1 inhaler 07/07/18 Prednisone [Deltasone 20 mg Tablet] 3 tab PO DAILY 5 Days #15 tablet 07/07/18 Famotidine 40 mg PO BID #60 tablet 09/04/18 Hydrocodone/Acetaminophen [[place] 5-325 mg Tablet] 1 tab PO Q6H #10 tablet 09/27/18 Ketorolac Tromethamine [Toradol 10 mg Tablet] 10 mg PO Q6HP PRN #20 tablet 09/27/18 Allergies/Adverse Reactions: No Known Allergies Allergy (Verified 09/27/18 14:35) Physical Exam - Physical Exam Vital Signs: Temp Pulse Resp BP Pulse Ox 97.5 F 61 16 119/74 100 09/27/18 21:30 09/27/18 21:30 09/27/18 21:30 09/27/18 21:30 09/27/18 21:30 Intake & Output 09/26/18 09/27/18 09/28/18 05:59 06:59 06:59 Weight 63.3 kg General appearance: PRESENT: mild distress - painful Respiratory exam: PRESENT: clear to auscultation belén Cardiovascular exam: PRESENT: RRR GI/Abdominal exam: PRESENT: normal bowel sounds, tenderness - low abdomen Extremities exam: ABSENT: calf tenderness, clubbing, full ROM, joint swelling, pedal edema, tenderness, +1 edema, +2 edema, other Result Laboratory Results: 09/27/18 14:45 09/27/18 14:45 09/27/18 09/27/18 09/27/18 14:45 14:45 14:45 WBC 9.3 RBC 4.04 Hgb 12.9 Hct 37.6 MCV 93 MCH 32.0 MCHC 34.3 RDW 13.6 Plt Count 223 Seg Neutrophils % 71.7 Lymphocytes % 20.7 Monocytes % 6.6 Eosinophils % 0.8 Basophils % 0.2 Absolute Neutrophils 6.7 Absolute Lymphocytes 1.9 Absolute Monocytes 0.6 Absolute Eosinophils 0.1 Absolute Basophils 0.0 Sodium 136.0 L Potassium 3.6 Chloride 102 Carbon Dioxide 24 Anion Gap 10 BUN 8 Creatinine 0.55 Est GFR ( Amer) > 60 Est GFR (Non-Af Amer) > 60 Glucose 75 Calcium 9.6 Total Bilirubin 0.6 AST 18 ALT 17 Alkaline Phosphatase 51 Total Protein 6.8 Albumin 4.3 Urine Color Urine Appearance Urine pH Ur Specific [place] Urine Protein Urine Glucose (UA) Urine Ketones Urine Blood Urine Nitrite Ur Leukocyte Esterase Urine WBC (Auto) Urine RBC (Auto) Blood Type AB POSITIVE Antibody Screen 09/27/18 09/27/18 14:45 18:38 WBC RBC Hgb Hct MCV MCH MCHC RDW Plt Count Seg Neutrophils % Lymphocytes % Monocytes % Eosinophils % Basophils % Absolute Neutrophils Absolute Lymphocytes Absolute Monocytes Absolute Eosinophils Absolute Basophils Sodium Potassium Chloride Carbon Dioxide Anion Gap BUN Creatinine Est GFR ( Amer) Est GFR (Non-Af Amer) Glucose Calcium Total Bilirubin AST ALT Alkaline Phosphatase Total Protein Albumin Urine Color YELLOW Urine Appearance SLIGHTLY-CLOUDY Urine pH 5.0 Ur Specific [place] 1.024 Urine Protein NEGATIVE Urine Glucose (UA) NEGATIVE Urine Ketones NEGATIVE Urine Blood NEGATIVE Urine Nitrite NEGATIVE Ur Leukocyte Esterase TRACE H Urine WBC (Auto) 3 Urine RBC (Auto) 1 Blood Type AB POSITIVE Antibody Screen NEGATIVE Impressions: Transvaginal US 09/27/18 14:40 IMPRESSION: demise. Trimester of : First - 0 to 13 weeks. Assessment & Plan - Diagnosis (1) demise Is this a current diagnosis for this admission?: Yes (2) Pelvic pain during Is this a current diagnosis for this admission?: Yes - Time Critical Time spent with patient: 15-24 minutes - Inpatient Certification Based on my medical assessment, after consideration of the patient's comorbidities, presenting symptoms, or acuity I expect that the services needed warrant INPATIENT care.: Yes I certify that my determination is in accordance with my understanding of Medicare's requirements for reasonable and necessary INPATIENT services [42 CFR 412.3e].: Yes - Plan Summary Plan Summary: 1. Repeat QBHCG 2. Repeat pelvic US 3. pain management
[2018-09-27] MEDS ORDERED: IBUPROFEN 800 MG TABLET PO PRN (23:42)
[2018-09-27] MEDS: HYDROMORPHONE HCL INJ/PF 2 MG/ML AMPULE IV PRN (23:55)
[2018-09-28] MEDS: HYDROMORPHONE HCL INJ/PF 2 MG/ML AMPULE IV PRN (08:15)
--- NOTE | 2018-09-28 08:40 | PDOC DISCHARGE SUMMARY ---
General - Admit/Disc Date/PCP Admission Date/Primary Care Provider: 09/27/18 18:22 Discharge Date: 09/28/18 - Discharge Diagnosis (1) Pelvic pain during Is this a current diagnosis for this admission?: Yes - Additional Information Resuscitation Status: Full Code Prescriptions: Ketorolac Tromethamine [Toradol 10 mg Tablet] 10 mg PO Q6HP PRN #20 tablet PRN Reason: Hydrocodone/Acetaminophen [[place] 5-325 mg Tablet] 1 tab PO Q6H #10 tablet Home Medications: Albuterol Sulfate [Ventolin Hfa 8 gm Mdi (1 Mdi/ER Disp)] 2 puff IH ASDIR PRN 5 Days #1 inhaler 07/07/18 Prednisone [Deltasone 20 mg Tablet] 3 tab PO DAILY 5 Days #15 tablet 07/07/18 Famotidine 40 mg PO BID #60 tablet 09/04/18 Hydrocodone/Acetaminophen [[place] 5-325 mg Tablet] 1 tab PO Q6H #10 tablet 09/27/18 Ketorolac Tromethamine [Toradol 10 mg Tablet] 10 mg PO Q6HP PRN #20 tablet 09/27/18 History of Present Illness Patient complains of: Pelvic pain History of Present Illness: REGGIE ADAM is a 28 year old female Hospital Course Hospital Course: She was admitted with pelvic pain but has not needed pain meds. It appears she has a threatened miscarriage and a corpus luteum cyst in the ovary. Physical Exam - Physical Exam Vital Signs: Temp Pulse Resp BP Pulse Ox 97.5 F 50 L 16 104/54 L 100 09/28/18 04:24 09/28/18 04:24 09/28/18 04:24 09/28/18 04:24 09/28/18 04:24 Intake & Output 09/27/18 09/28/18 09/29/18 06:59 06:59 06:59 Intake Total 480 Balance 480 Weight 63.3 kg General appearance: PRESENT: no acute distress, well-developed, well-nourished GI/Abdominal exam: PRESENT: normal bowel sounds, soft. ABSENT: distended, guarding, mass, organolmegaly, rebound, tenderness Result Laboratory Results: 09/27/18 14:45 09/27/18 14:45 09/27/18 09/27/18 09/27/18 14:45 14:45 14:45 WBC 9.3 RBC 4.04 Hgb 12.9 Hct 37.6 MCV 93 MCH 32.0 MCHC 34.3 RDW 13.6 Plt Count 223 Seg Neutrophils % 71.7 Lymphocytes % 20.7 Monocytes % 6.6 Eosinophils % 0.8 Basophils % 0.2 Absolute Neutrophils 6.7 Absolute Lymphocytes 1.9 Absolute Monocytes 0.6 Absolute Eosinophils 0.1 Absolute Basophils 0.0 Sodium 136.0 L Potassium 3.6 Chloride 102 Carbon Dioxide 24 Anion Gap 10 BUN 8 Creatinine 0.55 Est GFR ( Amer) > 60 Est GFR (Non-Af Amer) > 60 Glucose 75 Calcium 9.6 Total Bilirubin 0.6 AST 18 ALT 17 Alkaline Phosphatase 51 Total Protein 6.8 Albumin 4.3 Urine Color Urine Appearance Urine pH Ur Specific [place] Urine Protein Urine Glucose (UA) Urine Ketones Urine Blood Urine Nitrite Ur Leukocyte Esterase Urine WBC (Auto) Urine RBC (Auto) Blood Type AB POSITIVE Antibody Screen 09/27/18 09/27/18 14:45 18:38 WBC RBC Hgb Hct MCV MCH MCHC RDW Plt Count Seg Neutrophils % Lymphocytes % Monocytes % Eosinophils % Basophils % Absolute Neutrophils Absolute Lymphocytes Absolute Monocytes Absolute Eosinophils Absolute Basophils Sodium Potassium Chloride Carbon Dioxide Anion Gap BUN Creatinine Est GFR ( Amer) Est GFR (Non-Af Amer) Glucose Calcium Total Bilirubin AST ALT Alkaline Phosphatase Total Protein Albumin Urine Color YELLOW Urine Appearance SLIGHTLY-CLOUDY Urine pH 5.0 Ur Specific [place] 1.024 Urine Protein NEGATIVE Urine Glucose (UA) NEGATIVE Urine Ketones NEGATIVE Urine Blood NEGATIVE Urine Nitrite NEGATIVE Ur Leukocyte Esterase TRACE H Urine WBC (Auto) 3 Urine RBC (Auto) 1 Blood Type AB POSITIVE Antibody Screen NEGATIVE Impressions: Transvaginal US 09/27/18 14:40 IMPRESSION: demise. Trimester of : First - 0 to 13 weeks. Threatened ab and likely corpus luteum cyst. Plan Discharge Plan: Plan to send home with followup for serial quant hcg and sono in the office. Time Spent: Less than 30 Minutes
[2018-09-28 12:10] VITALS: BP 138/62
== END 2018-09-28 13:30 | disposition home or self-care (01) ==
LOC: ER 14:15 → LR 18:22 → INTOOBSV 18:22 → EH 20:21 → 2N 21:43
PROVIDERS: ADMIT Obstetrics & Gynecology; ATTEND Obstetrics & Gynecology
DX: O20.0 Threatened abortion (principal); O26.891 Other specified pregnancy related conditions, first trimester; R10.2 Pelvic and perineal pain; O34.81 Maternal care for other abnormalities of pelvic organs, first trimester; N83.10 Corpus luteum cyst of ovary, unspecified side; R42 Dizziness and giddiness; O99.511 Diseases of the respiratory system complicating pregnancy, first trimester; J45.909 Unspecified asthma, uncomplicated; K62.89 Other specified diseases of anus and rectum; Z3A.01 Less than 8 weeks gestation of pregnancy; Z87.891 Personal history of nicotine dependence; Z79.899 Other long term (current) drug therapy
CPT/HCPCS: 99285; 96372; 86900; 86901; 36415 ×2; 87210; 86850; 84702 ×2; 85025; 80053; 81001; 87491; 87591; 76817; 93976; G0378 ×2; J1885; S0119; J1170 ×2; J2405

== ENCOUNTER 2018-09-29 11:00 | Emergency (ER) | payer SELFPAY ==
[2018-09-29 12:11] VITALS: BP 120/59
--- NOTE | 2018-09-29 12:33 | ER Document Report ---
ED GI/ - General Chief Complaint: OB Problem (<20wks) Stated Complaint: ABDOMINAL PAIN Time Seen by Provider: 09/29/18 12:01 Primary Care Provider: [facility] [Provider Group] - Follow up tomorrow Notes: Patient is complaining of abdominal pains since Friday. She is documented to be approximately 7-1/2-8 weeks , G5, P3, A1. Was seen here Friday and kept overnight for observation. At that time, an ultrasound showed no blood flow to the fetus and likely demise. Patient was discharged home yesterday and says she was having pain at that time but is gotten worse. She now has pain juan t is going through into her pelvis and back and into the butt and back side. She has had some nausea and vomiting. No diarrhea. Has not had any fever. She has not had any vaginal bleeding, just brown when she wipes. TRAVEL OUTSIDE OF THE [place] IN LAST 30 DAYS: No - Related Data Allergies/Adverse Reactions: No Known Allergies Allergy (Verified 09/29/18 11:01) Past Medical History - Social History Smoking Status: Unknown if Ever Smoked Family History: Reviewed & Not Pertinent Patient has suicidal ideation: No Patient has homicidal ideation: No Pulmonary Medical History: Reports: Hx Asthma Past Surgical History: Reports: Hx Section - x2, 1 - Immunizations Immunizations up to date: Yes Hx Diphtheria, Pertussis, Tetanus Vaccination: Yes Review of Systems - Review of Systems Notes: REVIEW OF SYSTEMS: CONSTITUTIONAL : Denies fever. EENT: Denies eye, ear, nose or mouth or throat pain or other symptoms. CARDIOVASCULAR: Denies chest pain. RESPIRATORY: Denies cough, chest congestion, or shortness of breath. GASTROINTESTINAL: See HPI. GENITOURINARY: Denies difficulty or painful urinating, urinary frequency, blood in urine. See HPI. MUSCULOSKELETAL: Denies back or neck pain. Denies joint pain or swelling. SKIN: Denies rash or skin lesions. NEUROLOGICAL: Denies LOC or altered mental status. Denies headache. Denies sensory loss or motor deficits. ALL OTHER SYSTEMS REVIEWED AND NEGATIVE. Physical Exam - Vital signs Vitals: Temp Pulse Resp BP Pulse Ox 98.0 F 61 18 122/59 L 99 09/29/18 11:13 09/29/18 11:13 09/29/18 11:13 09/29/18 11:13 09/29/18 11:13 Interpretation: Normal Notes: PHYSICAL EXAMINATION: GENERAL: Healthy-appearing female. However, she does appear to be in pain, laying on the stretcher with her hips bed and her knees bent. HEAD: Atraumatic, normocephalic. EYES: Pupils equal round and reactive to light, extraocular movements intact. ENT: oropharynx clear without exudates. Moist mucous membranes. NECK: Normal range of motion, supple. LUNGS: Breath sounds clear and equal bilaterally. HEART: Regular rate and rhythm without murmurs. ABDOMEN: Soft, tender lower half of abdomen. No guarding or rebound. No masses. Pelvic exam deferred as on doing another ultrasound. She had a pelvic exam on her previous visit and appropriate lab studies were ordered and all negative. BACK: No tenderness throughout entire back. EXTREMITIES: Normal range of motion without pain. NEUROLOGICAL: Normal speech, normal gait. Normal sensory, motor, and reflex exams. Awake, alert, and oriented x3. Cranial nerves normal. PSYCH: Normal mood, normal affect. SKIN: Warm, dry, no rashes. Course - Re-evaluation Re-evalutation: 09/29/18 12:42 Spoke with on-call WIRE WELDER, Dr. Lala, and we will repeat patient's workup. 09/29/18 16:[address] Lala a second time. Patient to follow-up in their office tomorrow. Patient already has an appointment tomorrow morning. - Vital Signs Vital signs: Temp Pulse Resp BP Pulse Ox 98.0 F 60 20 120/59 L 100 09/29/18 11:13 09/29/18 12:00 09/29/18 12:00 09/29/18 12:00 09/29/18 12:00 - Laboratory Result Diagrams: 09/29/18 12:00 09/29/18 12:00 Laboratory results interpreted by me: 09/29/18 09/29/18 12:00 12:00 Hct 35.6 L Sodium 133.9 L Beta HCG, Quant 723651.00 H Discharge - Discharge Clinical Impression: Pelvic pain, demise Condition: Stable Additional Instructions: Pelvic Pain There are many causes of pain in the pelvic area. The cause could be the tubes, ovaries, uterus, intestines, appendix, pelvic muscles and connective tissue, or the urinary tract. The cause of your pelvic pain is not clear. However, it seems safe to treat you outside the hospital. If the pain sounds like a temporary problem, we sometimes wait to see if it goes away. Other patients may need additional tests, such as pelvic ultrasound or cultures. Conditions may change. Call us or come back for reexamination if any problems occur, such as: (1) Pain that becomes more severe, steady, or becomes concentrated in one specific area. Also, pain that is more severe with movement or coughing. (2) Vomiting that persists or becomes more frequent. (3) Blood in the vomitus, urine, or bowel movements. Blood in the stool may have a tarry or black appearance. (4) Shaking chills or fever greater than 100 degrees. (5) The abdomen becomes more distended or swollen. (6) Bowel movements cease. (7) Heavy vaginal bleeding. Miscarriage You have had and/or are in the process of a miscarriage (medically called a "spontaneous "). The miscarriage occurred because the fetus did not develop normally. There is nothing you did to cause it, and nothing you could have done to prevent it. About one in four ends in miscarriage. You should rest in bed for two or three days. As there is some risk of infection of the uterus, you should not have intercourse for one week (or until okayed by your physician). You might not have a period for six to eight weeks. You should not become again for at least three months -- the uterus requires time to get back to normal. Call the doctor or return for re-examination if there is heavy or persistent vaginal bleeding, fever, foul discharge, continued cramping pains, or abdominal pain. Ibuprofen Ibuprofen is an excellent, safe drug for pain control. In addition, it has potent antiinflammatory effects which are beneficial, especially in the treatment of injuries, arthritis, or tendonitis. It's best to take ibuprofen with food. Persons with ulcer disease or allergy to aspirin should notify their physician of this before taking ibuprofen. Take the medication exactly as prescribed. Don't take additional doses unless instructed to do so by your doctor. If you develop wheezing, shortness of breath, hives, faintness, stomach pain, vomiting, or dark black stools, re turn for re-evaluation at once. You should take 600 mg of Motrin/ibuprofen 3 times a day. That is 3 pills of 200 mg each to take 3 times a day. For any residual pain, you should take the Dilaudid pills that were prescribed for you. Oral Narcotic Medication You have been given a prescription for pain control. This medication is a narcotic. It's best taken with food, as nausea can result if taken on an empty stomach. Don't operate machinery or drive within six hours of taking this medication. Do not combine this medicine with alcohol, or with any medication which can cause sedation (such as cold tablets or sleeping pills) unless you get permission from the physician. Narcotics tend to cause constipation. If possible, drink plenty of fluids and eat a diet high in fiber and fruits. FOLLOW-UP CARE: If you have been referred to a physician for follow-up care, call the physicians office for an appointment as you were instructed or within the next two days. If you experience worsening or a significant change in your symptoms, notify the physician immediately or return to the Emergency Department at any time for re-evaluation. Keep your scheduled appointment to see the [facility] doctors tomorrow morning [facility] Prescriptions: Hydromorphone HCl [Dilaudid 2 mg Tablet] 2 mg PO Q4HP PRN #6 tablet PRN Reason: Referrals: [facility] [Provider Group] - Follow up tomorrow
[2018-09-29 12:37] LABS: ABSOLUTE EOSINOPHILS # (AUTO) 0.1 10^3/uL (0.0-0.6); ABSOLUTE LYMPHOCYTES (AUTO) 2.2 10^3/uL (0.5-4.7); ABSOLUTE MONOCYTES (AUTO) 0.5 10^3/uL (0.1-1.4); BASOPHILS % (AUTO) 0.3 % (0-2); EOSINOPHILS % (AUTO) 1.4 % (0-6); HEMATOCRIT 35.6 % (36.0-47.0); HEMOGLOBIN 12.2 g/dL (12.0-15.5); LYMPHOCYTES % (AUTO) 27.9 % (13-45); MEAN CORPUSCULAR HEMOGLOBIN 32.1 pg (27.0-33.4); MEAN CORPUSCULAR HGB CONC 34.2 g/dL (32.0-36.0); MEAN CORPUSCULAR VOLUME 94 fl (80-97); MONOCYTES % (AUTO) 6.4 % (3-13); PLATELET COUNT 224 10^3/uL (150-450); RED BLOOD COUNT 3.79 10^6/uL (3.72-5.28); RED CELL DISTRIBUTION WIDTH 13.1 % (11.5-14.0); TOTAL CELLS COUNTED % (AUTO) 100 %; WHITE BLOOD COUNT 7.8 10^3/uL (4.0-10.5)
[2018-09-29] MEDS ORDERED: PROMETHAZINE HCL 25 MG TABLET PO ONE (12:38)
[2018-09-29] MEDS ORDERED: OXYCODONE-ACETAMINOPHEN 5-325 MG TABLET PO ONE (12:39)
[2018-09-29 12:50] LABS: ALANINE AMINOTRANSFERASE 18 U/L (9-52); ALBUMIN 3.9 g/dL (3.5-5.0); ALKALINE PHOSPHATASE 47 U/L (38-126); ANION GAP 5 (5-19); ASPARTATE AMINO TRANSFERASE 19 U/L (14-36); BILIRUBIN,DIRECT 0.1 mg/dL (0.0-0.4); BILIRUBIN,TOTAL 0.6 mg/dL (0.2-1.3); BLOOD UREA NITROGEN 9 mg/dL (7-20); CALCIUM 8.8 mg/dL (8.4-10.2); CARBON DIOXIDE 24 mmol/L (22-30); CHLORIDE 105 mmol/L (98-107); GLUCOSE 80 mg/dL (75-110); LIPASE 45.5 U/L (23-300); POTASSIUM 4.3 mmol/L (3.6-5.0); SODIUM 133.9 mmol/L (137-145); TOTAL PROTEIN 6.5 g/dL (6.3-8.2)
[2018-09-29 12:55] LABS: AMORPHOUS SEDIMENT,URINE TRACE /HPF; APPEARANCE,URINE CLOUDY; BILIRUBIN,URINE NEGATIVE (NEGATIVE); COLOR,URINE YELLOW; GLUCOSE, URINE NEGATIVE (NEGATIVE); KETONES,URINE NEGATIVE (NEGATIVE); LEUKOCYTE ESTERASE,URINE NEGATIVE (NEGATIVE); NITRITE,URINE NEGATIVE (NEGATIVE); PROTEIN,URINE NEGATIVE (NEGATIVE); URINE SPECIFIC GRAVITY 1.021; UROBILINOGEN,URINE NEGATIVE mg/dL (<2.0)
[2018-09-29] MEDS ORDERED: ONDANSETRON HCL INJ/PF 4 MG/2 ML SDV IV ONE (13:00)
[2018-09-29] MEDS ORDERED: MORPHINE SULFATE 10 MG/ML INJ IV ONE ×2 (13:00→16:27)
--- NOTE | 2018-09-29 16:03 | RADIOLOGY REPORT (SQ) ---
EXAM DESCRIPTION: U/S OB TRANSVAG W/DOPPLER COMPLETED DATE/TIME: 09/29/2018 3:39 pm REASON FOR STUDY: demise at approximately 8 weeks gestation COMPARISON: OB ultrasound 09/13/2018, 09/27/2018 TECHNIQUE: Endovaginal static and realtime grayscale images acquired of the pelvis. Additional selec omari spectral and color Doppler images recorded. All images stored on PACs. bHCG: Today, 137,060 09/28/2018 146,890 09/13/2018 62,000 CLINICAL DATES: Last menses 08/04/2018 LIMITATIONS: None. FINDINGS: An intrauterine gestational sac is present without identifiable embryo. Mean sac diameter generates an age of 9 weeks 2 days. PLACENTA: Not yet developed due to early gestation. SUBCHORIONIC BLEED: No SIZE OF BLEED: Not applicable. UTERUS: No masses. No anomalies. Uterus is 12 x 10 x 7 cm in size CERVICAL LENGTH: 4 cm in length Closed. RIGHT ADNEXA: Normal ovary with normal vascular flow. Right ovary 3.7 x 1.3 x 1.2 cm in size with a 1.5 cm follicular cyst. No adnexal free fluid. No adnexal masses. LEFT ADNEXA: Normal ovary with normal vascular flow. Left ovary 4.8 x 4.5 x 1.7 cm in size with a 2 cm complex cyst likely the corpus luteum. No adnexal free fluid.No adnexal masses. FREE FLUID: None. OTHER: Report discussed with Dr. Hamilton 1545 hours 09/29/2018. IMPRESSION: Embryo demise. Persistent intrauterine gestational sac without identifiable embryo. Le ft ovary corpus luteum Findings discussed with Dr. Hamilton as a critical result 1545 hours 09/29/2018 Trimester of : First - 0 to 13 weeks. TECHNICAL DOCUMENTATION: JOB ID: [id number] [employer]- All Rights Reserved rev-12/05 Reading location - IP/workstation name: [email or web address]
[2018-09-29] MEDS ORDERED: KETOROLAC TROMETHAMINE INJ/PF 30 MG/1 ML SDV IV ONE (16:27)
== END 2018-09-29 17:09 | disposition home or self-care (01) ==
LOC: ER 11:00
DX: O36.4XX0 Maternal care for intrauterine death, not applicable or unspecified (principal); O26.891 Other specified pregnancy related conditions, first trimester; R10.2 Pelvic and perineal pain; M54.9 Dorsalgia, unspecified; O21.9 Vomiting of pregnancy, unspecified; O99.511 Diseases of the respiratory system complicating pregnancy, first trimester; J45.909 Unspecified asthma, uncomplicated; Z3A.08 8 weeks gestation of pregnancy
CPT/HCPCS: 96376; 99284; 96374; 96375; 36415; 84702; 83690; 85025; 80053; 81001; 76817; 93976; J1885; J2270; J2405

== ENCOUNTER 2018-10-04 10:48 | Emergency (ER) | payer MEDICAID ==
[2018-10-04] MEDS ORDERED: KETOROLAC TROMETHAMINE 60 MG/2 ML SDV IM ONE (11:09)
--- NOTE | 2018-10-04 11:12 | ER Document Report ---
ED Medical Screen (RME) - General Chief Complaint: Abdominal Pain Stated Complaint: ABDOMINAL PAIN Time Seen by Provider: 10/04/18 11:01 Notes: Patient is complaining of cramping abdominal/pelvic pain. Patient was seen here last week after she had pelvic pain and was found on ultrasound to have demise. She was referred to OB who saw her on Friday and prescribed Cytotec intravaginally. She got the prescription filled and used the medication on . She complains of continuing cramping in the pelvic region. Has not had any fever. Has had some urinary frequency. TRAVEL OUTSIDE OF THE [place] IN LAST 30 DAYS: No - Related Data Allergies/Adverse Reactions: No Known Allergies Allergy (Verified 10/04/18 10:53) Past Medical History Pulmonary Medical History: Reports: Hx Asthma Renal/ Medical History: Denies: Hx Peritoneal Dialysis Past Surgical History: Reports: Hx Section - x2, 1 - Immunizations Immunizations up to date: Yes Hx Diphtheria, Pertussis, Tetanus Vaccination: Yes History of Influenza Vaccine for 04/2017 - 09/2017 Season: Refused Physical Exam - Vital signs Vitals: Temp Pulse Resp BP Pulse Ox 98.3 F 58 L 17 133/81 H 100 10/04/18 10:58 10/04/18 10:58 10/04/18 10:58 10/04/18 10:58 10/04/18 10:58 Course - Vital Signs Vital signs: Temp Pulse Resp BP Pulse Ox 98.3 F 58 L 17 133/81 H 100 10/04/18 10:58 10/04/18 10:58 10/04/18 10:58 10/04/18 10:58 10/04/18 10:58
[2018-10-04 11:30] LABS: ABSOLUTE EOSINOPHILS # (AUTO) 0.1 10^3/uL (0.0-0.6); ABSOLUTE MONOCYTES (AUTO) 0.6 10^3/uL (0.1-1.4); ABSOLUTE NEUT (AUTO) 7.3 10^3/uL (1.7-8.2); BASOPHILS % (AUTO) 0.2 % (0-2); EOSINOPHILS % (AUTO) 1.1 % (0-6); HEMATOCRIT 38.9 % (36.0-47.0); HEMOGLOBIN 13.3 g/dL (12.0-15.5); LYMPHOCYTES % (AUTO) 20.3 % (13-45); MEAN CORPUSCULAR HEMOGLOBIN 32.1 pg (27.0-33.4); MEAN CORPUSCULAR HGB CONC 34.2 g/dL (32.0-36.0); MEAN CORPUSCULAR VOLUME 94 fl (80-97); MONOCYTES % (AUTO) 5.8 % (3-13); PLATELET COUNT 237 10^3/uL (150-450); RED BLOOD COUNT 4.14 10^6/uL (3.72-5.28); RED CELL DISTRIBUTION WIDTH 13.4 % (11.5-14.0); SEGMENTED NEUTROPHILS % (AUTO) 72.6 % (42-78); TOTAL CELLS COUNTED % (AUTO) 100 %
[2018-10-04 11:47] LABS: ALANINE AMINOTRANSFERASE 17 U/L (9-52); ALBUMIN 4.5 g/dL (3.5-5.0); ALKALINE PHOSPHATASE 56 U/L (38-126); ANION GAP 11 (5-19); ASPARTATE AMINO TRANSFERASE 19 U/L (14-36); BILIRUBIN,DIRECT 0.1 mg/dL (0.0-0.4); BILIRUBIN,TOTAL 0.8 mg/dL (0.2-1.3); BLOOD UREA NITROGEN 9 mg/dL (7-20); CALCIUM 9.5 mg/dL (8.4-10.2); CARBON DIOXIDE 22 mmol/L (22-30); CHLORIDE 103 mmol/L (98-107); GLUCOSE 85 mg/dL (75-110); POTASSIUM 4.8 mmol/L (3.6-5.0); SODIUM 135.8 mmol/L (137-145); TOTAL PROTEIN 7.1 g/dL (6.3-8.2)
[2018-10-04] MEDS ORDERED: ONDANSETRON HCL INJ/PF 4 MG/2 ML SDV IV ONE (11:52)
[2018-10-04] MEDS ORDERED: NORMAL SALINE 1000 ML 1,000 ML IV ONE (11:52)
[2018-10-04] MEDS ORDERED: MORPHINE SULFATE 10 MG/ML INJ IV ONE (11:52)
[2018-10-04] MEDS ORDERED: HYDROCODONE/ACETAMINOPHEN 5-325 MG (6 TAB/ER DISP) PO PRN (14:07)
[2018-10-04] MEDS ORDERED: ONDANSETRON ODT 4 MG TAB (6 TAB/ER DISP) PO PRN (14:08)
--- NOTE | 2018-10-04 14:09 | ER Document Report ---
ED General - General Chief Complaint: Abdominal Pain Stated Complaint: ABDOMINAL PAIN Time Seen by Provider: 10/04/18 11:01 TRAVEL OUTSIDE OF THE [place] IN LAST 30 DAYS: No - HPI Notes: Patient is a 28-year-old female who presents emergency department for evaluation of lower abdominal cramping. She was seen in the ER and then in the OB clinic. She was known to have an intrauterine demise, approximately 8 weeks gestational age. She was sent to the clinic, given prescriptions for Cytotec x2. She states she has small amount of spotting that day and has not had any bleeding since then. She continues to have significant cramping. She has had some nausea but only one episode of emesis. No fevers. - Related Data Allergies/Adverse Reactions: No Known Allergies Allergy (Verified 10/04/18 10:53) Past Medical History - General Information source: Patient - Social History Smoking Status: Current Every Day Smoker Family History: Reviewed & Not Pertinent Patient has suicidal ideation: No Patient has homicidal ideation: No Pulmonary Medical History: Reports: Hx Asthma Renal/ Medical History: Denies: Hx Peritoneal Dialysis Past Surgical History: Reports: Hx Section - x2, 1 - Immunizations Immunizations up to date: Yes Hx Diphtheria, Pertussis, Tetanus Vaccination: Yes Review of Systems - Review of Systems Constitutional: No symptoms reported EENT: No symptoms reported Cardiovascular: No symptoms reported Respiratory: No symptoms reported Gastrointestinal: See HPI Genitourinary: No symptoms reported Female Genitourinary: See HPI Musculoskeletal: No symptoms reported Skin: No symptoms reported Neurological/Psychological: No symptoms reported Physical Exam - Vital signs Vitals: Temp Pulse Resp BP Pulse Ox 98.3 F 58 L 17 133/81 H 100 10/04/18 10:58 10/04/18 10:58 10/04/18 10:58 10/04/18 10:58 10/04/18 10:58 - Notes Notes: Vital signs reviewed, please refer to chart. Patient is normocephalic, atraumatic. Pupils equal round, reactive to light. Neck is supple without meningismus. Heart is regular rate and rhythm. Lungs are clear to auscultation bilaterally. Abdomen is soft, mild pelvic tenderness, normoactive bowel sounds throughout. Extremities without cyanosis, clubbing, edema. Peripheral pulses are equal. Skin is warm and dry. Patient is awake, alert, neurological exam is nonfocal. Course - Re-evaluation Re-evalutation: 10/04/18 14:05 Patient presents to the emergency department for evaluation of pelvic pain. She does have a missed AB. She had an ultrasound which showed an empty gestational sac last week. She was treated with Cytotec. She is still not bleeding. Laboratory investigations are largely unremarkable. Quantitative beta is appropriately coming down. I spoke with Dr. Grossman. He asked that the patient follow-up in the office tomorrow. We will send her with pain and nausea medication. She is to return to the ED with worsening or new concerning symptoms of any sort. - Vital Signs Vital signs: Temp Pulse Resp BP Pulse Ox 98.6 F 55 L 16 109/60 100 10/04/18 13:41 10/04/18 13:41 10/04/18 13:41 10/04/18 13:41 10/04/18 13:41 - Laboratory Result Diagrams: 10/04/18 11:19 10/04/18 11:19 Laboratory results interpreted by me: 10/04/18 11:19 Sodium 135.8 L Beta HCG, Quant [id number] H Discharge - Discharge Clinical Impression: demise, Pelvic pain during Condition: Stable Disposition: HOME, SELF-CARE Instructions: Miscarriage Impending ([facility]) Additional Instructions: Rest. Take medications as needed for pain and nausea. Follow-up tomorrow with OB. Return to the emergency department with worsening or new concerning symptoms.
[2018-10-04 14:26] VITALS: BP 112/62
== END 2018-10-04 14:27 | disposition home or self-care (01) ==
LOC: ER 10:48
DX: O02.1 Missed abortion (principal); O26.91 Pregnancy related conditions, unspecified, first trimester; R10.2 Pelvic and perineal pain; O99.331 Smoking (tobacco) complicating pregnancy, first trimester; Z3A.01 Less than 8 weeks gestation of pregnancy
CPT/HCPCS: 99284; 96372; 96361; 96374; 96375; 36415; 84702; 85025; 80053; J1885; J2270; J2405; J7030

== ENCOUNTER 2018-10-10 20:57 | Emergency (ER) | payer MEDICAID ==
[2018-10-10] MEDS ORDERED: KETOROLAC TROMETHAMINE INJ/PF 30 MG/1 ML SDV IV ONE (22:41)
[2018-10-10] MEDS ORDERED: ONDANSETRON HCL INJ/PF 4 MG/2 ML SDV IV ONE (22:41)
--- NOTE | 2018-10-10 23:07 | ER Document Report ---
ED General - General Chief Complaint: Abdominal Pain Stated Complaint: ABDOMINAL PAIN Time Seen by Provider: 10/10/18 22:01 Notes: Patient is a [id number] female who presents with ongoing lower abdominal pain. The patient has been in the emergency department on 4 occasions including one hospitalization for lower abdominal pain in the context of a known intrauterine demise. She has tried Cytotec at home x2 without any relief. She was supposed to follow-up in clinic on the per Dr. Grossman's instruction but was unable to do so as the office apparently demanded a co-pay. The patient describes a severe, throbbing, constant pain to her lower abdomen. Denies any active vaginal bleeding or vaginal discharge. No fever or constitutional symptoms. States the pain comes in waves. Nothing seems to improve or worsen the pain. TRAVEL OUTSIDE OF THE [place] IN LAST 30 DAYS: No - HPI Onset: Just prior to arrival Onset/Duration: Intermittent Quality of pain: Cramping, Dull Severity: Severe Pain Level: 5 Associated symptoms: Nausea, Vomiting Exacerbated by: Denies Relieved by: Denies Similar symptoms previously: Yes Recently seen / treated by doctor: Yes - Related Data Allergies/Adverse Reactions: No Known Allergies Allergy (Verified 10/10/18 21:00) Past Medical History - General Information source: Patient, Relative - Social History Smoking Status: Never Smoker Frequency of alcohol use: None Drug Abuse: None Lives with: Spouse/Significant other Family History: Reviewed & Not Pertinent Pulmonary Medical History: Reports: Hx Asthma Renal/ Medical History: Denies: Hx Peritoneal Dialysis Past Surgical History: Reports: Hx Section - x2, 1 - Immunizations Immunizations up to date: Yes Hx Diphtheria, Pertussis, Tetanus Vaccination: Yes Review of Systems - Review of Systems Notes: Constitutional: Negative for fever. HENT: Negative for sore throat. Eyes: Negative for visual changes. Cardiovascular: Negative for chest pain. Respiratory: Negative for shortness of breath. Gastrointestinal: Positive for lower abdominal pain, nausea and vomiting Genitourinary: Negative for dysuria. Musculoskeletal: Negative for back pain. Skin: Negative for rash. Neurological: Negative for headaches, weakness or numbness. 10 point ROS negative except as marked above and in HPI. Physical Exam - Vital signs Vitals: Temp Pulse Resp BP Pulse Ox 97.8 F 84 17 113/60 100 10/10/18 21:15 03/23/19 21:15 10/10/18 21:15 10/10/18 21:15 10/10/18 21:15 Interpretation: Normal Notes: PHYSICAL EXAMINATION: GENERAL: Appears to be in pain but no acute distress HEAD: Atraumatic, normocephalic. EYES: Pupils equal round and reactive to light, extraocular movements intact, sclera anicteric, conjunctiva are normal. ENT: nares patent, oropharynx clear without exudates. Moist mucous membranes. NECK: Normal range of motion, supple without lymphadenopathy LUNGS: Breath sounds clear to auscultation bilaterally and equal. No wheezes rales or rhonchi. HEART: Regular rate and rhythm without murmurs ABDOMEN: Soft, mild suprapubic abdominal pain but no other localized areas of pain, normoactive bowel sounds. No guarding, no rebound. No masses appreciated. EXTREMITIES: Normal range of motion, no pitting or edema. No cyanosis. NEUROLOGICAL: No focal neurological deficits. Moves all extremities spontaneously and on command. PSYCH: Anxious, tearful SKIN: Warm, Dry, normal turgor, no rashes or lesions noted. Course - Re-evaluation Re-evalutation: 10/10/18 23:05 Patient presents with known intrauterine demise, has been hospitalized and in the emergency department 4 times since the of this month. She has tried Cytotec x2 without passage of the fetus. Patient presents in significant pain, patient and family report this is similar to prior presentations in terms of her degree of pain. I did contact the OB internal combustion engine assembler Dr. Parra to discuss this case as well as the failure follow-up on the . In summary, the patient was seen on the , Dr. Grossman was consulted, stated the patient would be seen in clinic on the . When the patient called the clinic for an appointment they refused to see her stating that she needed to pay $198 prior to being able to be seen. I did review this with Dr. Parra who assures me that this will not happen again going forward if the patient is able to be managed as an outpatient. Today I will obtain a transvaginal ultrasound to ensure there is no new findings and obtain basic laboratories as well. Patient does not have fever or constitutional symptoms to suggest endometritis. Likely having uterine contractions causing her pain. 10/11/18 01:30 Transvaginal ultrasound unchanged. Labs unremarkable. I provided the patient with pain and nausea medications and instructed her that she needs to follow-up in clinic on Friday. I have reviewed that I spoke directly to Dr. Parra and that OB is currently in agreement that the patient does need a D&C.. At this time will discharge with return precautions and follow-up recommendations. Verbal discharge instructions given a the bedside and opportunity for questions given. Medication warnings reviewed. Patient is in agreement with this plan and has verbalized understanding of return precautions and the need for [facility] follow-up on Friday. - Vital Signs Vital signs: Temp Pulse Resp BP Pulse Ox 97.8 F 84 17 110/73 99 10/10/18 21:15 10/10/18 21:15 10/10/18 21:15 10/11/18 00:02 10/11/18 00:02 - Laboratory Result Diagrams: 10/10/18 23:00 10/10/18 23:00 Laboratory results interpreted by me: 10/10/18 10/10/18 10/10/18 23:00 23:00 23:00 WBC 12.0 H Seg Neutrophils % 83.2 H Lymphocytes % 12.7 L Absolute Neutrophils 10.0 H Sodium 135.9 L Serum HCG, Qual POSITIVE H Beta HCG, Quant 10/10/18 23:00 WBC Seg Neutrophils % Lymphocytes % Absolute Neutrophils Sodium Serum HCG, Qual Beta HCG, Quant 99218.00 H - Diagnostic Test Radiology reviewed: Reports reviewed Discharge - Discharge Clinical Impression: demise, Pelvic pain during , Lower abdominal pain Condition: Good Disposition: HOME, SELF-CARE Additional Instructions: Your ultrasound is unchanged. You need to go to clinic on Friday and be scheduled for D&C. Your labs are otherwise unchanged. For your pain: Take ibuprofen 600 mg and acetaminophen 650 mg every 6 hours together as needed for pain. Use one [place] tablet every 4 hours for pain not controlled by the above regimen. Please return sooner if you develop fever, worsening pain, persistent vomiting, or any other symptoms that are worrisome to you. Please note that I spoke directly to Dr. Fidel thomas who states that she will inform Dr. Lala, the head of OB regarding the difficulty you had getting f kerwinlowed up in clinic on the . If you have any difficulties in getting an appointment on Friday when you call the women's clinic please inform them that we have spoken directly to the [facility] and that they need to see you in clinic on Friday. If this does not work please call the hospital clicker operator and request to speak to the OB on-call for come to the emergency department.
[2018-10-10 23:12] LABS: ABSOLUTE LYMPHOCYTES (AUTO) 1.5 10^3/uL (0.5-4.7); ABSOLUTE MONOCYTES (AUTO) 0.4 10^3/uL (0.1-1.4); BASOPHILS % (AUTO) 0.2 % (0-2); EOSINOPHILS % (AUTO) 0.3 % (0-6); HEMATOCRIT 38.6 % (36.0-47.0); HEMOGLOBIN 13.1 g/dL (12.0-15.5); LYMPHOCYTES % (AUTO) 12.7 % (13-45); MEAN CORPUSCULAR HEMOGLOBIN 31.5 pg (27.0-33.4); MEAN CORPUSCULAR VOLUME 93 fl (80-97); MONOCYTES % (AUTO) 3.6 % (3-13); PLATELET COUNT 241 10^3/uL (150-450); RED BLOOD COUNT 4.17 10^6/uL (3.72-5.28); RED CELL DISTRIBUTION WIDTH 13.1 % (11.5-14.0); SEGMENTED NEUTROPHILS % (AUTO) 83.2 % (42-78); TOTAL CELLS COUNTED % (AUTO) 100 %
[2018-10-10 23:26] LABS: ANION GAP 9 (5-19); BLOOD UREA NITROGEN 15 mg/dL (7-20); CALCIUM 9.3 mg/dL (8.4-10.2); CARBON DIOXIDE 24 mmol/L (22-30); CHLORIDE 103 mmol/L (98-107); GLUCOSE 93 mg/dL (75-110); POTASSIUM 4.4 mmol/L (3.6-5.0); SODIUM 135.9 mmol/L (137-145)
[2018-10-10] MEDS: MORPHINE SULFATE 10 MG/ML INJ IV PRN (23:39)
--- NOTE | 2018-10-11 00:23 | RADIOLOGY REPORT (SQ) ---
EXAM DESCRIPTION: US TRANSVAGINAL COMPLETED DATE/TME: 10/10/2018 22:41 CLINICAL HISTORY: 28 years, Female, lower ab pain, known demise COMPARISON: 09/29/2018 ultrasound TECHNIQUE: Transverse longitudinal transvaginal sonographic images in a first trimester patient LIMITATIONS: None. FINDINGS: The uterus measures 10.9 x 6.8 x 7.7 cm. There is an intrauterine gestational sac with visible yolk sac. No pole. No detectable heart tones. The maternal right ovary is not well seen likely due to its position in the pelvis. The maternal left ovary measures 3.7 x 1.9 x 1.8 cm. Normal flow to left ovary. Cervical length is 3.5 cm. Current ultrasound age is 8 weeks 3 days, based on a mean crown-rump length of 3.23 cm IMPRESSION: Intrauterine gestational sac with yolk sac however no visible pole or detectable heart tones. Current ultrasound age is 8 weeks 3 days. Findings are concerning for anembryonic /blighted ovum. Close obstetric follow-up recommended. Correlate with beta hCG levels. Short-term follow-up ultrasound may also be of benefit copyright 2011 [employer]- All Rights Reserved
[2018-10-11] MEDS ORDERED: HYDROCODONE/ACETAMINOPHEN 5-325 MG (6 TAB/ER DISP) PO PRN (01:28)
[2018-10-11] MEDS ORDERED: ONDANSETRON ODT 4 MG TAB (6 TAB/ER DISP) PO PRN (01:28)
[2018-10-11] MEDS: MORPHINE SULFATE 10 MG/ML INJ IV PRN (01:40)
[2018-10-11 01:50] VITALS: BP 103/67
== END 2018-10-11 01:50 | disposition home or self-care (01) ==
LOC: ER 20:57
DX: O02.1 Missed abortion (principal); R10.30 Lower abdominal pain, unspecified; R11.2 Nausea with vomiting, unspecified; R10.2 Pelvic and perineal pain
CPT/HCPCS: 99284; 96374; 96375; 36415; 84702; 84703; 85025; 80048; 76817; J1885; J2270 ×2; J2405

== ENCOUNTER 2018-10-13 08:39 | Day surgery (SDC) | payer MEDICAID ==
[2018-10-13] MEDS ORDERED: METOCLOPRAMIDE HCL INJ/PF 10 MG/2 ML SDV ONE (09:00)
[2018-10-13] MEDS ORDERED: FAMOTIDINE INJ/PF 20 MG/2 ML SDV IV ONE (09:01)
[2018-10-13] MEDS ORDERED: ALBUTEROL SULFATE 0.083% NEB 2.5 MG/3 ML AMPUL NEB ONE (09:17)
[2018-10-13 09:25] LABS: APPEARANCE,URINE SLIGHTLY-CLOUDY; BILIRUBIN,URINE NEGATIVE (NEGATIVE); COLOR,URINE YELLOW; GLUCOSE, URINE NEGATIVE (NEGATIVE); KETONES,URINE NEGATIVE (NEGATIVE); LEUKOCYTE ESTERASE,URINE NEGATIVE (NEGATIVE); NITRITE,URINE NEGATIVE (NEGATIVE); PROTEIN,URINE NEGATIVE (NEGATIVE); URINE SPECIFIC GRAVITY 1.027
[2018-10-13 09:30] LABS: HEMOGLOBIN 12.6 g/dL (12.0-15.5); MEAN CORPUSCULAR HEMOGLOBIN 32.2 pg (27.0-33.4); MEAN CORPUSCULAR VOLUME 95 fl (80-97); PLATELET COUNT 233 10^3/uL (150-450); RED BLOOD COUNT 3.91 10^6/uL (3.72-5.28); RED CELL DISTRIBUTION WIDTH 13.3 % (11.5-14.0); WHITE BLOOD COUNT 7.6 10^3/uL (4.0-10.5)
[2018-10-13] MEDS ORDERED: PROPOFOL INJ 200 MG/20 ML VIAL IV ONE (11:10)
[2018-10-13] MEDS ORDERED: MIDAZOLAM 2 MG/2 ML INJ ONE (11:10)
[2018-10-13] MEDS ORDERED: FENTANYL CITRATE INJ/PF 100 MCG/2 ML AMPUL ONE (11:10)
[2018-10-13] MEDS ORDERED: PROMETHAZINE HCL INJ 25 MG/1 ML VIAL IV PRN ×2 (11:37)
[2018-10-13] MEDS ORDERED: FENTANYL CITRATE INJ/PF 100 MCG/2 ML AMPUL IV PRN ×3 (11:37)
[2018-10-13] MEDS ORDERED: MORPHINE SULFATE 10 MG/ML INJ IV PRN (11:37)
[2018-10-13] MEDS ORDERED: MEPERIDINE HCL/PF INJ 25 MG/1 ML DISP.SYRIN IV PRN (11:37)
[2018-10-13] MEDS ORDERED: DIPHENHYDRAMINE HCL 50 MG/ML VIAL IV PRN (11:37)
--- NOTE | 2018-10-13 11:59 | OPERATIVE REPORT E ---
Operative Report NAME: REGGIE ADAM : 1990 AGE: 28Y DATE OF SURGERY: 10/13/2018 ROOM: PREOPERATIVE DIAGNOSIS: Missed AB. POSTOPERATIVE DIAGNOSIS: Missed AB. OPERATION: Suction D and C. SURGEON: Tony COYNE M.D. ANESTHESIA: Sedation. ESTIMATED BLOOD LOSS: Less than 25 mL. TISSUE REMOVED: Products of conception. PROCEDURE: The patient was placed in a dorsal lithotomy position, prepped and draped in the usual sterile fashion. Speculum was placed. Cervix was visualized, grasped with a single-tooth tenaculum. Uterus sounded to a depth of 15 cm. The os was sufficiently opened enough to admit a #8 suction catheter. Suction curettage was performed followed by sharp curettage followed by repeat suction. A moderate amount of tissue was recovered. The single-tooth tenaculum was removed. Hemostasis was noted. Speculum was removed and the procedure terminated. The patient was taken to the recovery room in good condition. DICTATING PHYSICIAN: Tony COYNE M.D. [id number] Y#: [id number] ID: [id number] JOB#: [id number] ACCT: [id number] cc:Tony COYNE M.D. >
[2018-10-13] MEDS ORDERED: ONDANSETRON HCL 8 MG TABLET PO PRN (12:09)
[2018-10-13] MEDS ORDERED: OXYCODONE-ACETAMINOPHEN 5-325 MG TABLET PO PRN (12:09)
[2018-10-13] MEDS ORDERED: KETOROLAC TROMETHAMINE INJ/PF 30 MG/1 ML SDV ONE (12:11)
[2018-10-13] MEDS ORDERED: ACETAMINOPHEN 1,000 MG/100 ML RTUPB IV ONE (12:11)
[2018-10-13 14:00] VITALS: BP 110/53
[2018-10-13] MEDS ORDERED: IBUPROFEN 800 MG TABLET PO SCH (14:00)
== END 2018-10-13 14:05 | disposition home or self-care (01) ==
LOC: OROUT 08:39
PROVIDERS: ATTEND Obstetrics & Gynecology Gynecology
DX: O02.1 Missed abortion (principal); J45.909 Unspecified asthma, uncomplicated; Z79.51 Long term (current) use of inhaled steroids
CPT/HCPCS: 36415; 85027; 81001; 88305 ×2; 59820; J2250; J3010; J1885; J2765; J2704; S0028; J0131; 1965